=== PATIENT | male | born 1935 | race Caucasian/White ===

== ENCOUNTER 2018-06-11 07:53 | Inpatient (IN) | payer MEDICARE, OTHER ==
[~2018-06-11] VITALS: Ht 180.3 cm; Wt 65.0 kg
[2018-06-11] MEDS ORDERED: CEFEPIME 2GM/50 ML (PMX) 50 ML IVPB STA (07:55)
[2018-06-11] MEDS ORDERED: VANCOMYCIN 1 GM (PMX) 250 ML IVPB ONE (08:00)
[2018-06-11] MEDS ORDERED: IPRATROPIUM (NEB) 0.5 MG/2.5 ML AMP INH STA (08:08)
[2018-06-11] MEDS ORDERED: ALBUTEROL 0.083% (NEB) 2.5 MG/3 ML AMP INH STA (08:08)
--- NOTE | 2018-06-11 08:18 | ERD ---
ER Documentation Chief Complaint Chief Complaint SOB, cough congestion HPI 83-year-old male with a past history of CVA, chronic hypoxia, requiring O2, recent admission from outside hospital, who presents for evaluation of acute shortness of breath. He is brought in by EMS, history was limited based on the acuity of his condition, EMS reports that he is brought in because he was more tachypneic, they noted scattered rales on exam. There are no alleviating or aggravating factors. The patient has not had a fever today. He denies chest pain, he has a history of a G-tube ROS All systems reviewed and are negative except as per history of present illness. Medications Home Meds Reported Medications Tramadol HCl (Tramadol HCl) 50 Mg Tablet, 50 MG G-TUBE Q6H PRN for PAIN LEVEL 4- 7, #120 TAB 06/11/18 Tiotropium Holt* (Spiriva*) 18 Mcg Cap.w.dev, 1 CAP INHALATION DAILY, #30 CAP 06/11/18 Sotalol Hcl* (Betapace*) 80 Mg Tab, 40 MG G-TUBE BID, TAB 06/11/18 Sirolimus* (Rapamune*) 1 Mg Tablet, 1 MG G-TUBE QHS, TAB 06/11/18 Levothyroxine Sodium* (Levoxyl*) 50 Mcg Tablet, 50 MCG GTB BEFORE BREAKFAST, #30 TAB 06/11/18 Latanoprost (Latanoprost) 2.5 Ml Drops, 1 DROP BOTH EYES QHS, #1 BOTTLE 06/11/18 Guaifenesin* (Refenesen*) 400 Mg Tablet, 400 MG G-TUBE Q8H PRN for COUGH, TAB 06/11/18 Tamsulosin Hcl* (Tamsulosin Hcl*) 0.4 Mg Cap.er.24h, 0.4 MG G-TUBE DAILY, CAP 06/11/18 Polyvinyl Alcohol (Tears Again) 15 Ml Drops, 15 ML OP PRN PRN for DRY EYES, BOTTLE 06/11/18 Apixaban* (Eliquis*) 2.5 Mg Tablet, 2.5 MG PO BID, TAB 06/11/18 Amlodipine Besylate* (Amlodipine Besylate*) 10 Mg Tablet, 10 MG G-TUBE DAILY, #30 TAB 06/11/18 Acetaminophen* (Acetaminophen* Susp) 325 Mg/10.15 Ml Solution, 640 MG G-TUBE Q4H PRN for PAIN OR TEMP ABOVE 38C, ML 06/11/18 Allergies Allergies: Coded Allergies: No Known Allergy (Unverified , 06/11/18) Physical Exam Vitals Vital Signs Date Temp Pulse Resp B/P (MAP) Pulse Ox O2 O2 Flow FiO2 Time Delivery Rate 06/11/18 88 26 119/66 97 Nasal 6.0 09:33 (83) Cannula 06/11/18 120 26 97 Nasal 6.0 08:57 Cannula 06/11/18 99.6 150 30 145/71 98 08:05 (95) Physical Exam Const: Tachypneic, alert and awake, elderly-appearing Head: Atraumatic Eyes: Normal Conjunctiva ENT: Normal External Ears, Nose and Mouth. Neck: Full range of motion. No meningismus. Resp: Scattered rhonchi bilaterally Cardio: Irregularly irregular, no murmurs Abd: Soft, non tender, G-tube site noted clean dry and intact, non distended. Normal bowel sounds Skin: No petechiae or rashes Back: No midline or flank tenderness Ext: No cyanosis, or edema Neur: Awake and alert Psych: Normal Mood and Affect Result Diagram: 06/11/18 0838 06/11/18 0838 Results 24 hrs Laboratory Tests Test 06/11/18 08:38 06/11/18 08:42 White Blood Count 11.2 10^3/ul Red Blood Count 3.89 10^6/ul Hemoglobin 12.2 g/dl Hematocrit 39.8 % Mean Corpuscular Volume 102.3 fl Mean Corpuscular Hemoglobin 31.4 pg Mean Corpuscular Hemoglobin Concent 30.7 g/dl Red Cell Distribution Width 14.3 % Platelet Count 187 10^3/UL Mean Platelet Volume 13.1 fl Immature Granulocytes % 0.400 % Neutrophils % 83.9 % Lymphocytes % 4.5 % Monocytes % 10.4 % Eosinophils % 0.5 % Basophils % 0.3 % Nucleated Red Blood Cells % 0.0 /100WBC Immature Granulocytes # 0.050 10^3/ul Neutrophils # 9.4 10^3/ul Lymphocytes # 0.5 10^3/ul Monocytes # 1.2 10^3/ul Eosinophils # 0.1 10^3/ul Basophils # 0.0 10^3/ul Nucleated Red Blood Cells # 0.0 10^3/ul Prothrombin Time 12.8 Sec Prothrombin Time Ratio 1.0 INR International Normalized Ratio 0.95 Activated Partial Thromboplast Time 31.0 Sec Sodium Level 144 mmol/L Potassium Level 4.4 mmol/L Chloride Level 99 mmol/L Carbon Dioxide Level 36 mmol/L Anion Gap 9 Blood Urea Nitrogen 35 mg/dl Creatinine 0.75 mg/dl Est Glomerular Filtrat Rate mL/min mL/min Glucose Level 233 mg/dl Calcium Level 10.3 mg/dl Total Bilirubin 0.7 mg/dl Direct Bilirubin 0.00 mg/dl Indirect Bilirubin 0.7 mg/dl Aspartate Amino Transf (AST/SGOT) 40 IU/L Alanine Aminotransferase (ALT/SGPT) 39 IU/L Alkaline Phosphatase 94 IU/L Troponin I < 0.012 ng/ml B-Type Natriuretic Peptide 1240 PG/ML Total Protein 7.8 g/dl Albumin 4.1 g/dl Globulin 3.70 g/dl Albumin/Globulin Ratio 1.10 POC Venous Lactate 1.0 mmol/L Current Medications Medications Dose Sig/Sharif Start Time Status Last (Trade) Ordered Route PRN Stop Time Admin Dose Reason Admin Cefepime HCl 50 ml @ ONCE STAT 06/11/18 DC 06/11/18 100 mls/hr IVPB 07:55 08:51 06/11/18 08:24 Vancomycin 250 ml @ ONCE ONCE 06/11/18 DC 06/11/18 HCl 125 mls/hr IVPB 08:00 09:32 06/11/18 09:59 Albuterol 5 mg ONCE STAT 06/11/18 DC 06/11/18 (Proventil INH 08:08 08:57 0.083% (Neb)) 06/11/18 08:09 Ipratropium 0.5 mg ONCE STAT 06/11/18 DC 06/11/18 Holt INH 08:08 08:57 (Atrovent 06/11/18 08:09 0.02% (Neb)) Diltiazem 15 mg ONCE ONCE 06/11/18 DC 06/11/18 HCl IV 09:30 09:16 (Cardizem Iv) 06/11/18 09:31 Sodium 500 ml @ Q1H ONCE 06/11/18 06/11/18 Chloride 500 mls/hr IV 09:30 09:34 06/11/18 10:29 Diltiazem 60 mg ONCE ONCE 06/11/18 DC HCl PO 09:30 (Cardizem) 06/11/18 09:31 Procedures/MDM 83-year-old male presents for shortness of breath, found to be in atrial fib with RVR. He has documented history of prior A. fib, he is currently on apixaban, he had a low-grade temperature, and possible signs of atelectasis ag rafa pneumonia on chest x-ray. Mild suspicion of the patient most likely has a pneumonia, which may have triggered his atrial fibrillation with RVR. He has no signs of severe sepsis or septic shock, given he had a recent hospital admission and comes from a long-term facility, he will be treated with broad- spectrum antibiotics with vancomycin and cefepime. I would not give 30 cc/kg of IV fluids, given that the patient had cardiomegaly, and elevated basal natruretic peptide, and there is concern for congestive heart failure. Patient was given diltiazem, and remained hemodynamically stable Accepting Care Team: Current data and ongoing care discussed. Primary: Juan Consulting: None Outstanding Data: none Departure Diagnosis: Primary Impression: Atrial fibrillation Atrial fibrillation type: unspecified Qualified Codes: I48.91 - Unspecified atrial fibrillation Additional Impressions: Pneumonia Pneumonia type: due to unspecified organism Laterality: unspecified laterality Lung location: unspecified part of lung Qualified Codes: J18.9 - Pneumonia, unspecified organism Shortness of breath Condition: SERAFIN Mitchell MD Jun 11, 2018 08:18
[2018-06-11] MEDS: CEFEPIME 1GM/50 ML (PMX) 50 ML IVPB SCH (09:00)
[2018-06-11] MEDS ORDERED: DILTIAZEM 60 MG TAB PO ONE (09:30)
[2018-06-11] MEDS ORDERED: DILTIAZEM 25 MG INJ IV ONE (09:30)
[2018-06-11] MEDS ORDERED: SOD CHLORIDE 0.9% 500 ML IV ONE (09:30)
[2018-06-11] MEDS ORDERED: POLY15DR25 OP (09:47)
[2018-06-11] MEDS ORDERED: TAMS0.4C2 G-TUBE (09:47)
[2018-06-11] MEDS ORDERED: AMLO-147 G-TUBE (09:47)
[2018-06-11] MEDS ORDERED: LATA2.5D2 BOTH EYES (09:47)
[2018-06-11] MEDS ORDERED: LEVO50TA71 GTB (09:47)
[2018-06-11] MEDS ORDERED: SOTA80TA53 G-TUBE (09:47)
[2018-06-11] MEDS ORDERED: ACET325S G-TUBE (09:47)
[2018-06-11] MEDS ORDERED: TIOT18CA INHALATION (09:47)
[2018-06-11] MEDS ORDERED: SIRO1TAB G-TUBE (09:47)
[2018-06-11] MEDS ORDERED: TRAM50TA2 G-TUBE (09:47)
[2018-06-11] MEDS ORDERED: APIX2.5T PO (09:47)
[2018-06-11] MEDS ORDERED: GUAI400T22 G-TUBE (09:47)
--- NOTE | 2018-06-11 17:04 | QN ---
Documentation Comment seen and examined DAVEY GUTIERREZ MD Jun 11, 2018 17:04
[2018-06-11] MEDS ORDERED: ARTIFICIAL TEARS 15 ML OPH BOTH EYES PRN (17:30)
[2018-06-11] MEDS ORDERED: traMADol 50 MG TAB GTB PRN (17:30)
[2018-06-11] MEDS ORDERED: VANCOMYCIN IV PER PHARMACY XX SCH (17:30)
[2018-06-11] MEDS ORDERED: NACL 0.9% 3 ML SYG IV SCH (17:30)
[2018-06-11] MEDS ORDERED: ACETAMINOPHEN 325 MG TAB GTB PRN (17:30)
[2018-06-11] MEDS ORDERED: ONDANSETRON 4 MG TAB PO PRN (17:30)
[2018-06-11 18:05] VITALS: BP 151/72; PULSE 95; RESP 20
[2018-06-11 18:25] VITALS: PULSE 113
[2018-06-11 19:27] VITALS: BP 107/60; PULSE 92; RESP 20
[2018-06-11] MEDS ORDERED: METOPROLOL 5 MG INJ IV PRN (19:30)
[2018-06-11] MEDS ORDERED: hydrALAzine 20 MG INJ IV PRN (19:30)
[2018-06-11 19:46] VITALS: Ht 180.3 cm; Wt 65.0 kg
[2018-06-11 20:00] VITALS: PULSE 94
[2018-06-11] MEDS: ALBUTEROL/IPRATROPIUM (NEB) 3 ML AMP HHN SCH (20:07)
--- NOTE | 2018-06-11 20:21 | HP ---
DATE OF ADMISSION: 06/11/2018 REASON FOR ADMISSION: Shortness of breath. HISTORY OF PRESENTING ILLNESS: This is an 83-year-old male with a past medical history of kidney sto myron, status post nephrectomy, was on dialysis, status post DDRT 9 years ago on sirolimus, history of hypertension, AFib, hypothyroidism, BPH, COPD , history of recent CVA 4 months ago, chronic hypoxia r equiring oxygen, G-tube placement, who was transferred to ____ secondary to shortness of breath. His tory is obtained from the son, ____, as the patient is unable to obtain any history from the patient. According to him 4 months ago, the patient had a stroke. The patient's condition had been declinin g. The patient was in [place] almost 2 weeks ago where the patient was short of breath, was found to be in sepsis, was transferred and was thought to have pneumonia, was treated there with IV antibiotic s and then was transferred to [facility]. After the patient stayed in the [facility] for 2 days, the patient was sent to [facility]. The patient was seen i n the [facility]. According to the son, the patient was also started on some feeding. Ac cording to the son, the other brother had been feeding the father and he feels that probably the eliel ent could have aspirated. The patient's facility called the family today and told the patient is po rt of breath and congested. O2 sats were only 80% and was transferred to nearest hospital. On admis leatha, vital signs show temperature 99.6, initial heart rate 150, respiratory rate 30, blood pressure 145/71, saturating 98% on 6 liters. White count was 11.1, BUN of 35, creatinine 0.75, glucose was 23 3. The patient was given vancomycin, cefepime, albuterol, Atrovent, diltiazem, NS and was admitted f or further management. Chest x-ray showed postsurgical changes, left upper thorax, left basilar atel ectasis, cardiomegaly with calcified aorta. PAST MEDICAL HISTORY: 1. Chronic AFib. 2. Status post DDRT 9 years ago, on sirolimus. 3. Hypertension. 4. Hypothyroidism. 5. History of CVA 4 months ago, status post G-tube placement. 6. Bedbound. 7. BPH. 8. Hypothyroidism. ALLERGIES: NONE. PAST SURGICAL HISTORY: 1. The patient has neck surgery for spine surgery many years ago. 2. The patient also had stent placed in the left arm and fistula. 3. G-tube placement. 4. The patient had partial thyroidectomy. SOCIAL HISTORY: Unobtainable. MEDICATIONS AT RETIREMENT: 1. Atenolol. 2. Amlodipine 10. 3. Eliquis 2.5 q.12 hours. 4. Flomax 0.4 at bedtime. 5. Guaifenesin. 6. Latanoprost eyedrops. 7. Levothyroxine 50. 8. Sirolimus 1 mg via G-tube in the evening. 9. Sotalol 40 b.i.d. 10. Spiriva. 11. Tramadol. FAMILY HISTORY: History of kidney stones in the family. REVIEW OF SYSTEMS: Unobtainable. PHYSICAL EXAMINATION: VITAL SIGNS: Currently, blood pressure 126/81, afebrile, heart rate 94, respirations 26, saturating 98% on 6 liters oxygen. GENERAL: The patient is confused, altered, barely open his eyes. Has weakness on the left arm. NECK: Supple. HEART: Irregularly irregular. LUNGS: Scattered rhonchi and rales. ABDOMEN: Little distended. G-tube present. Surgical scar present. EXTREMITIES: The patient has a fistula in the left upper extremity, currently not working. Thin ext remities. LABORATORY DATA: Sodium of 144, potassium of 4.4, chloride of 99, BUN of 35 and creatinine of 0.75. Lactic acid 0.7. Albumin is 4.1. LFTs showed AST 40, ALT of 39. BNP of 1240. Troponin is less th an 0.12. White count 11.2, hemoglobin 12.2, platelet count 187. UA is turbid, 3 WBCs. IMAGING: Chest x-ray showed some postsurgical change in the ____, left basilar atelectasis, cardiome mahesh with calcified aorta. EKG initially showed AFib with RVR; however, rate is better controlled no w. ASSESSMENT AND PLAN: This is an 83-year-old male who presented with: 1. Shortness of breath, could be secondary to underlying congestive heart failure, chronic obstructi ve pulmonary disease, also rule out aspiration. 2. Chronic atrial fibrillation, was in rapid ventricular response on admission, currently better. 3. Fevers. Rule out pneumonia. 4. Hypoxia. 5. Hypertension. 6. Status post donor renal transplantation. 7. History of chronic stroke with G-tube placement. 8. Hypothyroidism. 9. Hyperlipidemia. 10. G-tube placement. 11. Chronic bedbound status. PLAN: At this period of time, the patient will be admitted to telemetry. The patient will be contin ued on nebs round the clock. The patient will be kept n.p.o. Aspiration precautions. The patient w ill be started on IV antibiotics. We will also get an echo. Gentle Lasix. Pulmonary and cardiology consultation will be called. Rest of the treatment will depend on the patient's hospitalization cou rse. Dictated By: DAVEY ROBLES/JULIOCESAR Conf#: [id number] DID#: [id number] CC: RORY JANSEN MD; KENNY STOVER MD;*EndCC*
[2018-06-11] MEDS: SIROLIMUS 1 MG TAB GTB SCH (21:00)
[2018-06-11] MEDS ORDERED: SOTALOL 80 MG TAB GTB SCH (21:00)
[2018-06-11] MEDS: APIXABAN 5 MG TABLET PO SCH (21:00)
[2018-06-11] MEDS: SOTALOL 80 MG TAB GTB SCH (21:00)
[2018-06-11] MEDS: DILTIAZEM 30 MG TAB PO SCH ×2 (22:00→23:52)
[2018-06-11] MEDS: FUROSEMIDE 20 MG INJ IV SCH (22:00)
[2018-06-11] MEDS: LATANOPROST 0.005% 2.5 ML OPH BOTH EYES SCH (22:40)
[2018-06-11] MEDS: FAMOTIDINE 20 MG INJ IV SCH (22:45)
[2018-06-12] VITALS (12 sets, daily range): BP systolic 114–135; BP diastolic 58–67; PULSE 36–112; RESP 18–20
[2018-06-12] MEDS: ACETYLCYSTEINE 20% 4 ML VIAL NEB SCH ×4 (02:33→21:35)
[2018-06-12] MEDS: ALBUTEROL/IPRATROPIUM (NEB) 3 ML AMP HHN SCH ×4 (02:33→21:35)
--- NOTE | 2018-06-12 03:09 | CONS ---
DATE OF ADMISSION: 06/11/2018 DATE OF CONSULTATION: 06/11/2018 REASON FOR CONSULTATION: Atrial fibrillation. REQUESTING PHYSICIAN: Dr. Li. HISTORY OF PRESENT ILLNESS: Mr. Richey is an 83-year-old male with a history of prior CVA, chronic hypoxia requiring home O2, dysphagia status post G-tube, atrial fibrillation on baseline sotalol and Eliquis, who presented with worsening shortness of breath and increasing tachypnea. Upon arrival, te mperature 98.6, blood pressure 145/71, pulse 150, respiratory rate 30, satting 98%. The patient's la bs, white count 11.2, hemoglobin 12.2, platelet count 187. Sodium 144, potassium 4.4, creatinine 0.7 , BUN 35. Troponin negative. BNP of 1240. INR 0.95. UA negative. The patient underwent a chest x -ray revealing left basilar atelectasis, cardiomegaly, calcified aorta. The patient's electrocardiog dony revealed a rhythm most consistent with atrial fibrillation and atrial flutter at a rate of 135, n ormal axis and intervals with nonspecific ST abnormalities diffusely. The patient subsequently was a dmitted to the floor, and since admit to floor, has been resumed on baseline sotalol and baseline Sayda sandi as well as Norvasc with overall current improvement in heart rate. PAST MEDICAL HISTORY: As above in HPI with this patient having a history of BPH, hypothyroidism, gla ucoma by medications. MEDICATIONS CURRENTLY IN HOSPITAL: 1. Norvasc 10 mg daily. 2. ____ daily. 3. Synthroid 50 mcg daily. 4. Pepcid 20 mg IV daily. 5. Eliquis 2.5 mg p.o. b.i.d. 6. Sirolimus 1 mg at bedtime. 7. Sotalol 40 mg b.i.d. 8. Lasix 20 mg IV daily. 9. Tylenol p.r.n. 10. Vancomycin p.r.n. ALLERGIES: NO KNOWN DRUG ALLERGIES. SOCIAL HISTORY: No current tobacco, ETOH or illicit drug use. FAMILY HISTORY: No history of sudden cardiac or early CAD. REVIEW OF SYSTEMS: As above in HPI. CONSTITUTIONAL: No fever or chills. PULMONARY: No current shortness of breath. CARDIOVASCULAR: Atrial fibrillation with rapid ventricular response. GASTROINTESTINAL: No vomiting. GENITOURINARY: No hematuria. MUSCULOSKELETAL: Degenerative joint disease. PSYCHIATRIC: No documented psych history. NEUROLOGIC: History of CVA. Altered mental state. PHYSICAL EXAMINATION: VITAL SIGNS: Temperature of 98.1, blood pressure most recently 151/72, pulse 95, respiratory rate 20 , satting 98%. GENERAL: The patient is alert, awake, does not clearly respond to questioning of chest pain or short ness of breath. Sleeping, somewhat difficult to arouse. NECK: JVP approximately 9 cm water. CHEST: Upper chest has rhonchorous sounds. HEART: Tachycardic, irregularly irregular, I/ systolic murmur, nondisplaced PMI. ABDOMEN: Positive bowel sounds, soft. EXTREMITIES: No edema, 1+ pulses in bilateral posterior tibial. LABORATORIES: Most recently from today, troponin negative x2. Otherwise, as above in HPI. IMAGING STUDIES: As above in HPI. No further imaging studies for my review at this time. ECG: As above in HPI. No further electrocardiograms for my review at this time. IMPRESSION: 1. Atrial fibrillation with mild rapid ventricular response. 2. Abnormal electrocardiogram with nonspecific ST abnormalities, assess for acute coronary syndrome. 3. Hypertension. 4. Shortness of breath with possible pneumonia by chest x-ray. 5. Elevated blood sugars. 6. Leukocytosis. 7. Hypothyroidism. 8. Benign prostatic hypertrophy. RECOMMENDATIONS: 1. At this time, we would maintain patient on telemetry monitoring to follow rhythm and rate control closely. 2. We would check a 2D echo for this patient's ejection fraction, wall motion and major valve abnorm alities 3. Continue the patient's Eliquis for prevention of thromboembolic complications in the setting of a trial fibrillation. 4. We will continue the patient's sotalol. We will increase it to 80 b.i.d. and follow serial EKGs to follow the QT corrected interval and we will additionally change the patient's Norvasc to diltiaze m to improve overall heart rate control and then we will continue to up titrate to improve overall sy stolic blood pressure control with possible need to initiate alternative antihypertensives. 5. Consider gentle diuresis given elevated BNP, but we will hold on this given elevated [id number]-ya-[id number] inine ratio. 6. Continue patient's antibiotics and follow up all culture data, which has been written for 20 IV d aily. 7. Continue patient's antibiotics and follow up all culture data. Thank you for allowing me to take part in the care of this patient. I will continue to follow him ve ry closely with you with recommendations to be made as the patient progresses through his inpatient h ospital clinical course. Dictated By: RORY FERGUSON/JULIOCESAR Conf#: [id number] DID#: [id number] CC: Dr. Li; KENNY STOVER MD;*EndCC*
[2018-06-12] MEDS: VANCOMYCIN 1 GM 250 ML IVPB SCH (04:37)
[2018-06-12] MEDS: DILTIAZEM 30 MG TAB PO SCH ×2 (06:12→14:00)
[2018-06-12] MEDS: LEVOTHYROXINE 50 MCG TAB GTB SCH (06:12)
--- NOTE | 2018-06-12 08:51 | RADRPT ---
CHRISTOPHER KEE :1935 Sex:M Status: RECONFIRMED ACC:[id number] Exam DATE:2018-06-12 07:59:58 Vent Rate: 47 bpm RR Interval: 0 msec CO Interval: 0 msec QRS Duration: 78 msec QT Interval: 432 msec QTC Interval: 382 msec P-R-T [place]: 0 - 27 - 70 degrees Atrial fibrillation with slow ventricular response Possible Anterior infarct , age undetermined Abnormal ECG Electronically Signed By: Calvin Cerrato
[2018-06-12] MEDS ORDERED: AMLODIPINE 10 MG TAB GTB SCH (09:00)
[2018-06-12] MEDS: FAMOTIDINE 20 MG INJ IV SCH (09:26)
[2018-06-12] MEDS: FUROSEMIDE 20 MG INJ IV SCH (09:26)
[2018-06-12] MEDS: TAMSULOSIN (SR) 0.4 MG CAP PO SCH (09:26)
[2018-06-12] MEDS: APIXABAN 5 MG TABLET PO SCH ×2 (09:27→20:19)
[2018-06-12] MEDS: SOTALOL 80 MG TAB GTB SCH (09:27)
[2018-06-12] MEDS: CEFEPIME 1GM/50 ML (PMX) 50 ML IVPB SCH (09:27)
--- NOTE | 2018-06-12 14:50 | CONS ---
Assessment/Plan Assessment/Plan Assessment/Plan (Daily) Atrial fibrillation with Pauses Abnormal electrocardiogram with nonspecific ST abnormalities Hypertension. Diabetes Hypothyroidism. Benign prostatic hypertrophy. Multiple episodes of sinus pauses Stopped Sotalol and Cardizem Continue Eliquis Continue Antibiotics Keep Mag > 2 and Potassium > 4 Consultation Date/Type/Reason Admit Date/Time Jun 11, 2018 at 09:53 Initial Consult Date Type of Consult Cardiology Date/Time of Note DATE: 06/12/18 TIME: 14:46 Exam/Review of Systems Vital Signs Vitals Vital Signs Date Temp Pulse Resp B/P (MAP) Pulse Ox O2 O2 Flow FiO2 Time Delivery Rate 06/12/18 90 22 100 Nasal 3.0 14:33 Cannula 06/12/18 97.5 119/58 11:27 (78) Intake and Output 06/11/18 06/11/18 06/12/18 1515:00 23:00 07:00 IntakeIntake Total 430 ml OutputOutput Total 800 ml BalanceBalance -370 ml Exam Constitutional: alert Head: normocephalic, atraumatic Neck: supple, non-tender Respiratory: clear to auscultation Cardiovascular: irregular rhythm, other (no m/r/g) Gastrointestinal: soft Extremities: normal pulses Labs Result Diagram: 06/12/1851806/12/18 0519 Results 24hrs Laboratory Tests Test 06/11/18 17:33 06/11/18 23:04 06/12/18 05:19 Creatine Kinase 23 < 20 L Creatine Kinase Index 1.0 Creatinine Kinase MB (Mass) < 0.22 < 0.22 Troponin I < 0.012 < 0.012 Thyroid Stimulating Hormone (TSH) 2.680 White Blood Count 10.2 Red Blood Count 3.53 L Hemoglobin 11.2 L Hematocrit 37.7 L Mean Corpuscular Volume 106.8 H Mean Corpuscular Hemoglobin 31.7 Mean Corpuscular Hemoglobin Concent 29.7 L Red Cell Distribution Width 14.0 Platelet Count 172 Mean Platelet Volume 13.2 H Immature Granulocytes % 0.500 H Neutrophils % 80.2 H Lymphocytes % 5.9 L Monocytes % 12.2 H Eosinophils % 1.0 Basophils % 0.2 Nucleated Red Blood Cells % 0.0 Immature Granulocytes # 0.050 H Neutrophils # 8.2 H Lymphocytes # 0.6 L Monocytes # 1.2 H Eosinophils # 0.1 Basophils # 0.0 Nucleated Red Blood Cells # 0.0 Sodium Level 146 H Potassium Level 4.5 Chloride Level 104 Carbon Dioxide Level 35 H Anion Gap 7 Blood Urea Nitrogen 34 H Creatinine 0.82 Est Glomerular Filtrat Rate mL/min Glucose Level 116 # Hemoglobin A1c 5.2 Calcium Level 9.5 Phosphorus Level 4.5 Magnesium Level 2.3 Total Bilirubin 1.3 Direct Bilirubin 0.00 Indirect Bilirubin 1.3 H Aspartate Amino Transf (AST/SGOT) 38 Alanine Aminotransferase (ALT/SGPT) 39 Alkaline Phosphatase 90 Total Protein 7.5 Albumin 3.8 Globulin 3.70 H Albumin/Globulin Ratio 1.02 Medications Medications Current Medications IV Flush (NS 3 ml) 3 ml PER PROTOCOL IV ; Start 06/11/18 at 17:30 Ondansetron HCl (Zofran Tab) 4 mg Q6H PRN PO NAUSEA/VOMITING; Start 06/11/18 at 17:30 Acetaminophen (Tylenol Tab) 650 mg Q6H PRN GTB .PAIN 1-3 OR TEMP; Start 06/11/18 at 17:30 Famotidine (Pepcid Iv) 20 mg DAILY IV Last administered on 06/12/18 09:26; Admin Dose 20 MG; Start 06/11/18 at 21:00 Vancomycin HCl (Vanco Iv Per Pharmacy) VANCOMYCIN PER PHARMACY PER PROTOCOL XX ; Start 06/11/18 at 17:30 Cefepime HCl 50 ml @ 100 mls/hr Q24H IVPB Last administered on 06/12/18 09:27; Admin Dose 100 MLS/HR; Start 06/11/18 at 09:00 Albuterol/ Ipratropium (Duoneb) 3 ml Q6H RESP THERAPY HHN Last administered on 06/12/18 14:32; Admin Dose 3 ML; Start 06/11/18 at 20:00 Furosemide (Lasix) 20 mg DAILY IV Last administered on 06/12/18 09:26; Admin Dose 20 MG; Start 06/11/18 at 19:00 Apixaban (Eliquis) 2.5 mg BID PO Last administered on 06/12/18 09:27; Admin Dose 2.5 MG; Start 06/11/18 at 21:00 Latanoprost (Xalatan) 1 drop QHS BOTH EYES Last administered on 4/12/19at 22 :40; Admin Dose 1 DROP; Start 06/11/18 at 21:00 Levothyroxine Sodium (Synthroid) 50 mcg BEFORE BREAKFAST GTB Last administered on 06/12/18at 06:12; Admin Dose 50 MCG; Start 06/12/18 at 07:00 Eye Lubricant (Artificial Tears Oph) 1 drop PRN PRN BOTH EYES DRY EYES; Start 06/11/18 at 17:30 Sirolimus (Rapamune) 1 mg QHS GTB Last administered on 06/11/18at 21:00; Admin Dose 1 MG; Start 06/11/18 at 21:00 Tamsulosin HCl (Flomax) 0.4 mg DAILY PO Last administered on 06/12/18 09:26; Admin Dose 0.4 MG; Start 06/12/18 at 09:00 Tramadol HCl (Ultram) 50 mg Q6H PRN GTB PAIN LEVEL 4-7; Start 06/11/18 at 17:30 Sotalol HCl (Betapace) 80 mg BID GTB Last administered on 06/12/18at 09:27; Admin Dose 80 MG; Start 06/11/18 at 21:00 Hydralazine HCl (Apresoline) 10 mg Q4H PRN IV SBP>170; Start 06/11/18 at 19:30 Metoprolol Tartrate (Lopressor) 5 mg Q4H PRN IV HR>110 HOld SBP<100; Start 06/11/18 at 19:30 Vancomycin HCl 250 ml @ 125 mls/hr Q24H IVPB Last administered on 06/12/18 04:37; Admin Dose 125 MLS/HR; Start 06/12/18 at 04:00 Acetylcysteine (Mucomyst) 2 ml Q6H RESP THERAPY NEB Last administered on 06/12/18at 14:33; Admin Dose 2 ML; Start 06/12/18 at 02:00 MO FRAGOSO M.D. Jun 12, 2018 14:50
--- NOTE | 2018-06-12 19:14 | PN ---
Date/Time of Note Date/Time of Note DATE: 06/12/18 TIME: 19:10 Assessment/Plan VTE Prophylaxis Risk score (from [facility] [place])>0 risk: 9 SCD applied (from [facility] [place]): Yes Pharmacological prophylaxis: apixaban Lines/Catheters IV [facility] Type (from [facility] Saline Lock Urinary Cath still in place: Yes Reason Cath still needed: urinary retention Assessment/Plan Hospital Course 1. Shortness of breath, could be secondary to underlying congestive heart failure, chronic obstructive pulmonary disease, also rule out aspiration. 2. Chronic atrial fibrillation, was in rapid ventricular response on admission, currently controlled. 3. Sepsis, Bl. Cul. are positive. Fevers. UA negative. Chest Xray neg. for pneumonia, will repeat 4. Hypoxic respiratory failure. 5. Hypertension. 6. Status post donor renal transplantation. 7. History of stroke with G-tube placement. 8. Hypothyroidism. 9. Hyperlipidemia. 10. G-tube placement. 11. Chronic bedbound status. Assessment/Plan - telemetry. -dc foly AM - nebs round the clock. - n.p.o. start GI tube feed -Aspiration precautions. -c/w Cefipime and Vancomycin - echo pending. -c.w Gentle Lasix. Pulmonary and cardiology consultation will be called. -GI prophylaxis Famotidine PO BID -DVT prophylaxis Eliquis BID -video swallow per OT later Result Diagram: 06/12/1851806/12/18518 Results 24hrs Laboratory Tests Test 06/11/18 23:04 06/12/18 05:19 Creatine Kinase < 20 L Creatine Kinase Index Creatinine Kinase MB (Mass) < 0.22 Troponin I < 0.012 White Blood Count 10.2 Red Blood Count 3.53 L Hemoglobin 11.2 L Hematocrit 37.7 L Mean Corpuscular Volume 106.8 H Mean Corpuscular Hemoglobin 31.7 Mean Corpuscular Hemoglobin Concent 29.7 L Red Cell Distribution Width 14.0 Platelet Count 172 Mean Platelet Volume 13.2 H Immature Granulocytes % 0.500 H Neutrophils % 80.2 H Lymphocytes % 5.9 L Monocytes % 12.2 H Eosinophils % 1.0 Basophils % 0.2 Nucleated Red Blood Cells % 0.0 Immature Granulocytes # 0.050 H Neutrophils # 8.2 H Lymphocytes # 0.6 L Monocytes # 1.2 H Eosinophils # 0.1 Basophils # 0.0 Nucleated Red Blood Cells # 0.0 Sodium Level 146 H Potassium Level 4.5 Chloride Level 104 Carbon Dioxide Level 35 H Anion Gap 7 Blood Urea Nitrogen 34 H Creatinine 0.82 Est Glomerular Filtrat Rate mL/min Glucose Level 116 # Hemoglobin A1c 5.2 Calcium Level 9.5 Phosphorus Level 4.5 Magnesium Level 2.3 Total Bilirubin 1.3 Direct Bilirubin 0.00 Indirect Bilirubin 1.3 H Aspartate Amino Transf (AST/SGOT) 38 Alanine Aminotransferase (ALT/SGPT) 39 Alkaline Phosphatase 90 Total Protein 7.5 Albumin 3.8 Globulin 3.70 H Albumin/Globulin Ratio 1.02 Subjective 24 Hr Interval Summary Free Text/Dictation unable to talk, cough Exam/Review of Systems Exam Vitals Vital Signs Date Temp Pulse Resp B/P (MAP) Pulse Ox O2 O2 Flow FiO2 Time Delivery Rate 06/12/18 79 16:00 06/12/18 98.0 20 115/64 94 Nasal 15:46 (81) Cannula 06/12/18 3.0 14:33 Intake and Output 06/11/18 06/11/18 06/12/18 1515:00 23:00 07:00 IntakeIntake Total 430 ml OutputOutput Total 800 ml BalanceBalance -370 ml Constitutional: alert, oriented (name, ) ENMT: nl external ears & nose Neck: supple Respiratory: crackles/rales, diminished breath sounds Cardiovascular: regular rate and rhythm Gastrointestinal: soft, other (G tube) Results Results 24hrs Laboratory Tests Test 06/11/18 23:04 06/12/18 05:19 Creatine Kinase < 20 L Creatine Kinase Index Creatinine Kinase MB (Mass) < 0.22 Troponin I < 0.012 White Blood Count 10.2 Red Blood Count 3.53 L Hemoglobin 11.2 L Hematocrit 37.7 L Mean Corpuscular Volume 106.8 H Mean Corpuscular Hemoglobin 31.7 Mean Corpuscular Hemoglobin Concent 29.7 L Red Cell Distribution Width 14.0 Platelet Count 172 Mean Platelet Volume 13.2 H Immature Granulocytes % 0.500 H Neutrophils % 80.2 H Lymphocytes % 5.9 L Monocytes % 12.2 H Eosinophils % 1.0 Basophils % 0.2 Nucleated Red Blood Cells % 0.0 Immature Granulocytes # 0.050 H Neutrophils # 8.2 H Lymphocytes # 0.6 L Monocytes # 1.2 H Eosinophils # 0.1 Basophils # 0.0 Nucleated Red Blood Cells # 0.0 Sodium Level 146 H Potassium Level 4.5 Chloride Level 104 Carbon Dioxide Level 35 H Anion Gap 7 Blood Urea Nitrogen 34 H Creatinine 0.82 Est Glomerular Filtrat Rate mL/min Glucose Level 116 # Hemoglobin A1c 5.2 Calcium Level 9.5 Phosphorus Level 4.5 Magnesium Level 2.3 Total Bilirubin 1.3 Direct Bilirubin 0.00 Indirect Bilirubin 1.3 H Aspartate Amino Transf (AST/SGOT) 38 Alanine Aminotransferase (ALT/SGPT) 39 Alkaline Phosphatase 90 Total Protein 7.5 Albumin 3.8 Globulin 3.70 H Albumin/Globulin Ratio 1.02 Medications Medication Current Medications IV Flush (NS 3 ml) 3 ml PER PROTOCOL IV ; Start 06/11/18 at 17:30 Ondansetron HCl (Zofran Tab) 4 mg Q6H PRN PO NAUSEA/VOMITING; Start 06/11/18 at 17:30 Acetaminophen (Tylenol Tab) 650 mg Q6H PRN GTB .PAIN 1-3 OR TEMP; Start 06/11/18 at 17:30 Famotidine (Pepcid Iv) 20 mg DAILY IV Last administered on 06/12/18 09:26; Admin Dose 20 MG; Start 06/11/18 at 21:00 Vancomycin HCl (Vanco Iv Per Pharmacy) VANCOMYCIN PER PHARMACY PER PROTOCOL XX ; Start 06/11/18 at 17:30 Cefepime HCl 50 ml @ 100 mls/hr Q24H IVPB Last administered on 06/12/18 09 :27; Admin Dose 100 MLS/HR; Start 06/11/18 at 09:00 Albuterol/ Ipratropium (Duoneb) 3 ml Q6H RESP THERAPY HHN Last administered on 06/12/18 14:32; Admin Dose 3 ML; Start 06/11/18 at 20:00 Furosemide (Lasix) 20 mg DAILY IV Last administered on 06/12/18 09:26; Admin Dose 20 MG; Start 06/11/18 at 19:00 Apixaban (Eliquis) 2.5 mg BID PO Last administered on 06/12/18 09:27; Admin Dose 2.5 MG; Start 06/11/18 at 21:00 Latanoprost (Xalatan) 1 drop QHS BOTH EYES Last administered on 06/11/18 22:4 0; Admin Dose 1 DROP; Start 06/11/18 at 21:00 Levothyroxine Sodium (Synthroid) 50 mcg BEFORE BREAKFAST GTB Last administered on 06/12/18 06:12; Admin Dose 50 MCG; Start 06/12/18 at 07:00 Eye Lubricant (Artificial Tears Oph) 1 drop PRN PRN BOTH EYES DRY EYES; Start 06/11/18 at 17:30 Sirolimus (Rapamune) 1 mg QHS GTB Last administered on 06/11/18 21:00; Admin Dose 1 MG; Start 06/11/18 at 21:00 Tamsulosin HCl (Flomax) 0.4 mg DAILY PO Last administered on 06/12/18 09:26; Admin Dose 0.4 MG; Start 06/12/18 at 09:00 Tramadol HCl (Ultram) 50 mg Q6H PRN GTB PAIN LEVEL 4-7; Start 06/11/18 at 17:30 Hydralazine HCl (Apresoline) 10 mg Q4H PRN IV SBP>170; Start 06/11/18 at 19:30 Metoprolol Tartrate (Lopressor) 5 mg Q4H PRN IV HR>110 HOld SBP<100; Start 06/11/18 at 19:30 Vancomycin HCl 250 ml @ 125 mls/hr Q24H IVPB Last administered on 06/12/18 04:37; Admin Dose 125 MLS/HR; Start 06/12/18 at 04:00 Acetylcysteine (Mucomyst) 2 ml Q6H RESP THERAPY NEB Last administered on 06/12/18at 14:33; Admin Dose 2 ML; Start 06/12/18 at 02:00 JOSIAH BRIONES Jun 12, 2018 19:14
[2018-06-12] MEDS: LATANOPROST 0.005% 2.5 ML OPH BOTH EYES SCH (20:19)
[2018-06-12] MEDS: SIROLIMUS 1 MG TAB GTB SCH (20:19)
[2018-06-13] VITALS (12 sets, daily range): BP systolic 109–146; BP diastolic 59–81; PULSE 88–111; RESP 16–18
[2018-06-13] MEDS: ACETYLCYSTEINE 20% 4 ML VIAL NEB SCH ×4 (03:45→19:28)
[2018-06-13] MEDS: ALBUTEROL/IPRATROPIUM (NEB) 3 ML AMP HHN SCH ×4 (03:45→19:27)
[2018-06-13] MEDS: VANCOMYCIN 1 GM 250 ML IVPB SCH (04:56)
[2018-06-13] MEDS: LEVOTHYROXINE 50 MCG TAB GTB SCH (06:54)
[2018-06-13] MEDS: APIXABAN 5 MG TABLET PO SCH ×2 (08:30→20:47)
[2018-06-13] MEDS: TAMSULOSIN (SR) 0.4 MG CAP PO SCH (08:30)
[2018-06-13] MEDS: FUROSEMIDE 20 MG INJ IV SCH (08:31)
[2018-06-13] MEDS: CEFEPIME 1GM/50 ML (PMX) 50 ML IVPB SCH (08:31)
[2018-06-13] MEDS: FAMOTIDINE 20 MG INJ IV SCH (08:31)
--- NOTE | 2018-06-13 13:08 | PN ---
Date/Time of Note Date/Time of Note DATE: 06/13/18 TIME: 13:07 Assessment/Plan VTE Prophylaxis Risk score (from [facility] [place])>0 risk: 11 SCD applied (from [facility] [place]): Yes Pharmacological prophylaxis: apixaban Lines/Catheters IV Catheter Type (from [facility]): Saline Lock Urinary Cath still in place: Yes Reason Cath still needed: urinary retention Assessment/Plan Hospital Course 1. Shortness of breath, could be secondary to underlying congestive heart failure, chronic obstructive pulmonary disease, also rule out aspiration. 2. Chronic atrial fibrillation, was in rapid ventricular response on admission, currently controlled. 3. Sepsis, Bl. Cul. are positive. Fevers. UA negative. Chest Xray neg. for pneumonia, will repeat 4. Hypoxic respiratory failure. 5. Hypertension. 6. Status post donor renal transplantation. 7. History of stroke with G-tube placement. 8. Hypothyroidism. 9. Hyperlipidemia. 10. G-tube placement. 11. Chronic bedbound status. Assessment/Plan - telemetry. - nebs around the clock. - n.p.o. - c/w GI tube feed -Aspiration precautions. -c/w Cefepime and Vancomycin - echo pending. -c.w Gentle Lasix. -f/up Pulmonary and cardiology consultation -GI prophylaxis Famotidine GT BID -DVT prophylaxis Eliquis BID -video swallow per OT later Result Diagram: 06/13/18 0521 06/13/18 0521 Results 24hrs Laboratory Tests Test 06/13/18 05:21 White Blood Count 8.8 Red Blood Count 3.71 L Hemoglobin 11.5 L Hematocrit 37.9 L Mean Corpuscular Volume 102.2 H Mean Corpuscular Hemoglobin 31.0 Mean Corpuscular Hemoglobin Concent 30.3 L Red Cell Distribution Width 13.7 Platelet Count 172 Mean Platelet Volume 13.6 H Immature Granulocytes % 0.500 H Neutrophils % 77.9 H Lymphocytes % 6.5 L Monocytes % 13.8 H Eosinophils % 1.0 Basophils % 0.3 Nucleated Red Blood Cells % 0.0 Immature Granulocytes # 0.040 H Neutrophils # 6.8 Lymphocytes # 0.6 L Monocytes # 1.2 H Eosinophils # 0.1 Basophils # 0.0 Nucleated Red Blood Cells # 0.0 Sodium Level 144 Potassium Level 3.7 Chloride Level 103 Carbon Dioxide Level 34 H Anion Gap 7 Blood Urea Nitrogen 37 H Creatinine 0.83 Est Glomerular Filtrat Rate mL/min Glucose Level 184 Calcium Level 9.3 Subjective 24 Hr Interval Summary Constitutional: no complaints Exam/Review of Systems Exam Vitals Vital Signs Date Temp Pulse Resp B/P (MAP) Pulse Ox O2 O2 Flow FiO2 Time Delivery Rate 06/13/18 98.2 96 109/73 100 2.0 11:19 (85) 06/13/18 20 Nasal 09:19 Cannula 06/13/18 30 03:45 Intake and Output 06/12/18 06/12/18 06/13/18 1515:00 23:00 07:00 IntakeIntake Total 0 ml 450 ml OutputOutput Total 1000 ml BalanceBalance -1000 ml 450 ml Exam left arm av fistula Constitutional: alert, oriented (name) Eyes: nl conjunctiva Neck: supple Respiratory: diminished breath sounds Gastrointestinal: soft, other (GT) Musculoskeletal: muscle weakness Results Results 24hrs Laboratory Tests Test 06/13/18 05:21 White Blood Count 8.8 Red Blood Count 3.71 L Hemoglobin 11.5 L Hematocrit 37.9 L Mean Corpuscular Volume 102.2 H Mean Corpuscular Hemoglobin 31.0 Mean Corpuscular Hemoglobin Concent 30.3 L Red Cell Distribution Width 13.7 Platelet Count 172 Mean Platelet Volume 13.6 H Immature Granulocytes % 0.500 H Neutrophils % 77.9 H Lymphocytes % 6.5 L Monocytes % 13.8 H Eosinophils % 1.0 Basophils % 0.3 Nucleated Red Blood Cells % 0.0 Immature Granulocytes # 0.040 H Neutrophils # 6.8 Lymphocytes # 0.6 L Monocytes # 1.2 H Eosinophils # 0.1 Basophils # 0.0 Nucleated Red Blood Cells # 0.0 Sodium Level 144 Potassium Level 3.7 Chloride Level 103 Carbon Dioxide Level 34 H Anion Gap 7 Blood Urea Nitrogen 37 H Creatinine 0.83 Est Glomerular Filtrat Rate mL/min Glucose Level 184 Calcium Level 9.3 Medications Medication Current Medications IV Flush (NS 3 ml) 3 ml PER PROTOCOL IV ; Start 06/11/18 at 17:30 Ondansetron HCl (Zofran Tab) 4 mg Q6H PRN PO NAUSEA/VOMITING; Start 06/11/18 at 17:30 Acetaminophen (Tylenol Tab) 650 mg Q6H PRN GTB .PAIN 1-3 OR TEMP; Start 06/11/18 at 17:30 Famotidine (Pepcid Iv) 20 mg DAILY IV Last administered on 06/13/18 08:31; Admin Dose 20 MG; Start 06/11/18 at 21:00 Vancomycin HCl (Vanco Iv Per Pharmacy) VANCOMYCIN PER PHARMACY PER PROTOCOL XX ; Start 06/11/18 at 17:30 Cefepime HCl 50 ml @ 100 mls/hr Q24H IVPB Last administered on 06/13/18 08:31; Admin Dose 100 MLS/HR; Start 06/11/18 at 09:00 Albuterol/ Ipratropium (Duoneb) 3 ml Q6H RESP THERAPY HHN Last administered on 06/13/18 09:10; Admin Dose 3 ML; Start 06/11/18 at 20:00 Furosemide (Lasix) 20 mg DAILY IV Last administered on 06/13/18 08:31; Admin Dose 20 MG; Start 06/11/18 at 19:00 Apixaban (Eliquis) 2.5 mg BID PO Last administered on 06/13/18 08:30; Admin Dose 2.5 MG; Start 06/11/18 at 21:00 Latanoprost (Xalatan) 1 drop QHS BOTH EYES Last administered on 06/12/18 20:19; Admin Dose 1 DROP; Start 06/11/18 at 21:00 Levothyroxine Sodium (Synthroid) 50 mcg BEFORE BREAKFAST GTB Last administered on 06/13/18 06:54; Admin Dose 50 MCG; Start 06/12/18 at 07:00 Eye Lubricant (Artificial Tears Oph) 1 drop PRN PRN BOTH EYES DRY EYES; Start 06/11/18 at 17:30 Sirolimus (Rapamune) 1 mg QHS GTB Last administered on 06/12/18 20:19; Admin Dose 1 MG; Start 06/11/18 at 21:00 Tamsulosin HCl (Flomax) 0.4 mg DAILY PO Last administered on 06/13/18 08:30; Admin Dose 0.4 MG; Start 06/12/18 at 09:00 Tramadol HCl (Ultram) 50 mg Q6H PRN GTB PAIN LEVEL 4-7; Start 06/11/18 at 17:30 Hydralazine HCl (Apresoline) 10 mg Q4H PRN IV SBP>170; Start 06/11/18 at 19:30 Metoprolol Tartrate (Lopressor) 5 mg Q4H PRN IV HR>110 HOld SBP<100; Start 06/11/18 at 19:30 Vancomycin HCl 250 ml @ 125 mls/hr Q24H IVPB Last administered on 06/13/18at 04:56; Admin Dose 125 MLS/HR; Start 06/12/18 at 04:00 Acetylcysteine (Mucomyst) 2 ml Q6H RESP THERAPY NEB Last administered on 06/13at 09:10; Admin Dose 2 ML; Start 06/12/18 at 02:00 Miscellaneous Information (*Rx Drug Level Order Reminder*) VANCO TROUGH ON @ 300 0300 ONCE XX ; Start 06/14/18 at 03:00; Stop 06/14/18 at 03:01 JOSIAH BRIONES Jun 13, 2018 13:08
--- NOTE | 2018-06-13 15:49 | RADRPT ---
Echocardiogram Report Patient Name: CHRISTOPHER KEEPatient ID: [id number] : 1935 (83y 5m)Study Date: 06/12/2018 1:39:30 PM Gender: MAccession #: [id number] Tech: MAC Location: Ref.Physician: DAVEY GUTIERREZ Height(Cm): 180 BSA: 1.8Weight(Kg): 64.9 Quality: Technically Difficult StudyAccount #: Procedures: Echocardiographic Report: Transthoracic echocardiogram examination. Indications: Atrial Fibrillation, Congestive Heart Failure, and Shortness of breath. h. Measurements: 2D/M Mode Doppler Measurement Value Normal Range Measurement Value Normal Range LVIDd 2D 4.0 [ 4.2 - 5.8 ] cm TR Peak Rodrigo 2.6 [ 100.0 - 280.0 ] cm/sec LVIDs 2D 2.6 [ 2.5 - 4.0 ] cm TR Peak PG 26.0 mmHg IVSd 2D 1.1 [ 0.6 - 1.0 ] cm PV Peak Rodrigo 0.6 [ 40.0 - 80.0 ] cm/sec AoR Diam 2D 3.1 [ 2.6 - 3.4 ] cm PV Peak PG 2.0 mmHg LA Dimen 2D 4.1 [ 3.0 - 4.0 ] cm RVSP 29.0 [ 10.0 - 36.0 ] mmHg RA Pressure 3.0 mmHg Findings: Left Ventricle: Normal left ventricular cavity size. Normal left ventricular systolic function. Normal left ventricular wall thickness. The left ventricular ejection fraction is visually estimated at 55 %. Right Ventricle: Normal right ventricular size. Left Atrium: There is mild enlargement of left atrium. Right Atrium: The right atrium is not well visualized. Atrial Septum: The atrial septum is not well visualized. Mitral Valve: Normal appearance of the mitral valve leaflets. Mild mitral regurgitation. Aortic Valve: No hemodynamically significant aortic stenosis by Doppler. Aortic cusps appear mildly calcified. Trileaflet aortic valve. No aortic regurgitation. Tricuspid Valve: Normal appearance of the tricuspid valve. The estimated Peak RVSP is 29 mmHg. There is mild tricuspid regurgitation. Pulmonic Valve: The pulmonic valve is not well visualized. Pericardium: Normal pericardium with no significant pericardial effusion. Left pleural effusion seen. Aorta: Normal aortic root. IVC: The inferior vena cava is not well visualized. Pulmonary Artery: Pulmonary artery is not well visualized. Conclusions: Normal left ventricular cavity size. Normal left ventricular systolic function. Normal left ventricular wall thickness. The left ventricular ejection fraction is visually estimated at 55 %. Normal right ventricular size and function. Mild mitral regurgitation. No hemodynamically significant aortic stenosis by Doppler. Aortic cusps appear mildly calcified. Trileaflet aortic valve. No aortic regurgitation. The estimated Peak RVSP is 29 mmHg. There is mild tricuspid regurgitation. Normal pericardium with no significant pericardial effusion. Left pleural effusion seen. Electronically Signed By: Dusty Ba 2018-06-13 15:49:03 PDT
[2018-06-13] MEDS: LATANOPROST 0.005% 2.5 ML OPH BOTH EYES SCH (20:48)
[2018-06-13] MEDS: SIROLIMUS 1 MG TAB GTB SCH (20:48)
[2018-06-14] VITALS (13 sets, daily range): BP systolic 114–149; BP diastolic 64–82; PULSE 76–149; RESP 16–20
[2018-06-14] MEDS: ACETYLCYSTEINE 20% 4 ML VIAL NEB SCH ×4 (01:54→22:18)
[2018-06-14] MEDS: ALBUTEROL/IPRATROPIUM (NEB) 3 ML AMP HHN SCH ×4 (01:55→13:53)
[2018-06-14] MEDS: VANCOMYCIN 1 GM 250 ML IVPB SCH (04:09)
[2018-06-14] MEDS: LEVOTHYROXINE 50 MCG TAB GTB SCH (05:23)
[2018-06-14] MEDS: CEFEPIME 1GM/50 ML (PMX) 50 ML IVPB SCH (08:27)
[2018-06-14] MEDS: FUROSEMIDE 20 MG INJ IV SCH (08:31)
[2018-06-14] MEDS: FAMOTIDINE 20 MG INJ IV SCH (08:32)
[2018-06-14] MEDS: TAMSULOSIN (SR) 0.4 MG CAP PO SCH (08:33)
[2018-06-14] MEDS: APIXABAN 5 MG TABLET PO SCH ×2 (08:33→20:34)
--- NOTE | 2018-06-14 12:58 | CONS ---
Assessment/Plan Assessment/Plan Hospital Course (Demo Recall) IMPRESSION: 1. Atrial fibrillation with mild rapid ventricular response.-neg trop x 3. NL EF by echo. Had [employer] long pause. ? true. in chart not monitor. 2. Abnormal electrocardiogram with nonspecific ST abnormalities, assess for acute coronary syndrome. 3. Hypertension. 4. Shortness of breath with possible pneumonia by chest x-ray. 5. Elevated blood sugars. 6. Leukocytosis. 7. Hypothyroidism. 8. Benign prostatic hypertrophy. Recc: -Tele -serial ecg's -Continue lasix -Continue eliquis -resume diltiazem and follow for recurrent pause. Will hold on sotalol Consultation Date/Type/Reason Admit Date/Time Jun 11, 2018 at 09:53 Initial Consult Date 06/11/18 Type of Consult Cardiology Reason for Consultation AF Requesting Provider: DAVEY GUTIERREZ MD Date/Time of Note DATE: 06/14/18 TIME: 12:46 Exam/Review of Systems Vital Signs Vitals Vital Signs Date Temp Pulse Resp B/P (MAP) Pulse Ox O2 O2 Flow FiO2 Time Delivery Rate 06/14/18 97.4 76 16 136/82 91 11:13 (100) 06/14/18 Nasal 3.0 08:00 Cannula 06/13/18 30 03:45 Intake and Output 06/13/18 06/13/18 06/14/18 1515:00 23:00 07:00 IntakeIntake Total 460 ml BalanceBalance 460 ml Exam Exam Review of Systems: CONSTITUTIONAL: No fevers, chills. PULMONARY: No sob CARDIOVASCULAR: No chest pain/palpitations GASTROINTESTINAL: No nausea/vomiting. GENITOURINARY: No hematuria/dysuria. MUSCULOSKELETAL: No myagias/arthalgias. PSYCHIATRIC: The patient denies depression. NEUROLOGIC: No weakness Constitutional: alert Psych: no complaints Head: normocephalic ENMT: mucosa pink and moist Neck: supple, jvd (9 cm water) Respiratory: diminished breath sounds (at bases/B) Cardiovascular: irregular rhythm Gastrointestinal: soft, non-tender Musculoskeletal: muscle tone (normal) Extremities: edema (none) Neurological: other (No focal deficits) Labs Result Diagram: 06/14/18 0427 06/14/18 0427 Results 24hrs Laboratory Tests Test 06/14/18 02:43 06/14/18 04:27 Vancomycin Level Trough 10.9 White Blood Count 5.7 # Red Blood Count 3.43 L Hemoglobin 10.5 L Hematocrit 35.4 L Mean Corpuscular Volume 103.2 H Mean Corpuscular Hemoglobin 30.6 Mean Corpuscular Hemoglobin Concent 29.7 L Red Cell Distribution Width 13.6 Platelet Count 162 Mean Platelet Volume 13.7 H Immature Granulocytes % 0.700 H Neutrophils % 69.9 Lymphocytes % 10.8 L Monocytes % 15.3 H Eosinophils % 3.0 Basophils % 0.3 Nucleated Red Blood Cells % 0.0 Immature Granulocytes # 0.040 H Neutrophils # 4.0 Lymphocytes # 0.6 L Monocytes # 0.9 Eosinophils # 0.2 Basophils # 0.0 Nucleated Red Blood Cells # 0.0 Sodium Level 146 H Potassium Level 3.5 Chloride Level 105 Carbon Dioxide Level 33 H Anion Gap 8 Blood Urea Nitrogen 25 #H Creatinine 0.66 Est Glomerular Filtrat Rate mL/min Glucose Level 133 # Calcium Level 8.2 L Medications Medications Current Medications IV Flush (NS 3 ml) 3 ml PER PROTOCOL IV ; Start 06/11/18 at 17:30 Ondansetron HCl (Zofran Tab) 4 mg Q6H PRN PO NAUSEA/VOMITING; Start 06/11/18 at 17:30 Acetaminophen (Tylenol Tab) 650 mg Q6H PRN GTB .PAIN 1-3 OR TEMP; Start 06/11/18 at 17:30 Famotidine (Pepcid Iv) 20 mg DAILY IV Last administered on 06/14/18at 08:32; Admin Dose 20 MG; Start 06/11/18 at 21:00 Vancomycin HCl (Vanco Iv Per Pharmacy) VANCOMYCIN PER PHARMACY PER PROTOCOL XX ; Start 06/11/18 at 17:30 Cefepime HCl 50 ml @ 100 mls/hr Q24H IVPB Last administered on 06/14/18at 08:27; Admin Dose 100 MLS/HR; Start 06/11/18 at 09:00 Albuterol/ Ipratropium (Duoneb) 3 ml Q6H RESP THERAPY HHN Last administered on 06/14/18at 09:56; Admin Dose 3 ML; Start 06/11/18 at 20:00 Furosemide (Lasix) 20 mg DAILY IV Last administered on 06/14/18at 08:31; Admin Dose 20 MG; Start 06/11/18 at 19:00 Apixaban (Eliquis) 2.5 mg BID PO Last administered on 06/14/18 08:33; Admin Dose 2.5 MG; Start 06/11/18 at 21:00 Latanoprost (Xalatan) 1 drop QHS BOTH EYES Last administered on 06/13/18 20:48; Admin Dose 1 DROP; Start 06/11/18 at 21:00 Levothyroxine Sodium (Synthroid) 50 mcg BEFORE BREAKFAST GTB Last administered on 06/14/18 05:23; Admin Dose 50 MCG; Start 06/12/18 at 07:00 Eye Lubricant (Artificial Tears Oph) 1 drop PRN PRN BOTH EYES DRY EYES; Start 06/11/18 at 17:30 Sirolimus (Rapamune) 1 mg QHS GTB Last administered on 06/13/18 20:48; Admin Dose 1 MG; Start 06/11/18 at 21:00 Tamsulosin HCl (Flomax) 0.4 mg DAILY PO Last administered on 06/14/18 08:33; Admin Dose 0.4 MG; Start 06/12/18 at 09:00 Tramadol HCl (Ultram) 50 mg Q6H PRN GTB PAIN LEVEL 4-7; Start 06/11/18 at 17:30 Hydralazine HCl (Apresoline) 10 mg Q4H PRN IV SBP>170; Start 06/11/18 at 19:30 Metoprolol Tartrate (Lopressor) 5 mg Q4H PRN IV HR>110 HOld SBP<100; Start 06/11/18 at 19:30 Vancomycin HCl 250 ml @ 125 mls/hr Q24H IVPB Last administered on 06/14/18 04:09; Admin Dose 125 MLS/HR; Start 06/12/18 at 04:00 Acetylcysteine (Mucomyst) 2 ml Q6H RESP THERAPY NEB Last administered on 06/14/18 09:56; Admin Dose 2 ML; Start 06/12/18 at 02:00 RORY JANSEN Jun 14, 2018 12:57
[2018-06-14] MEDS: DILTIAZEM 30 MG TAB PO SCH ×2 (14:34→21:49)
--- NOTE | 2018-06-14 16:05 | PN ---
Date/Time of Note Date/Time of Note DATE: 06/14/18 TIME: 16:01 Assessment/Plan VTE Prophylaxis Risk score (from Ns)>0 risk: 11 SCD applied (from [facility]): Yes Pharmacological prophylaxis: NA/contraindicated Pharm contraindication: low risk/ambulating Lines/Catheters IV Catheter Type (from [facility]): Saline Lock Urinary Cath still in place: Yes Reason Cath still needed: urinary retention Assessment/Plan Hospital Course 83 y.o with 1. Shortness of breath, could be secondary to underlying congestive heart failure, chronic obstructive pulmonary disease, also rule out aspiration. X-ray shows pneumonia 2. Chronic atrial fibrillation, was in rapid ventricular response on admission, and sotalol was on hold secondary to pauses however restarted back again by cardiology today 3. Sepsis, Bl. Cul. are positive. Fevers. UA negative. Chest Xray +pneumonia culture positive for staph repeat blood cultures have been negative questionable contaminant 4. Hypoxic respiratory failure. 5. Hypertension. 6. Status post donor renal transplantation. There are numerous 7. History of stroke with G-tube placement. With weakness 8. Hypothyroidism. 9. Hyperlipidemia. 10. G-tube placement. 11. Chronic bedbound status. Assessment/Plan -Started back on diltiazem per cardiology -Continue with vancomycin/cefepime -Repeat cultures negative -ID consult - nebs around the clock. - n.p.o. - c/w GI tube feed -Continue with sirolimus -Aspiration precautions. -c.w Gentle Lasix. -f/up cardiology consultation -GI prophylaxis Famotidine GT BID -DVT prophylaxis Eliquis BID -video swallow per OT later Result Diagram: 06/14/18 0427 06/14/18 0427 Results 24hrs Laboratory Tests Test 06/14/18 02:43 06/14/18 04:27 Vancomycin Level Trough 10.9 White Blood Count 5.7 # Red Blood Count 3.43 L Hemoglobin 10.5 L Hematocrit 35.4 L Mean Corpuscular Volume 103.2 H Mean Corpuscular Hemoglobin 30.6 Mean Corpuscular Hemoglobin Concent 29.7 L Red Cell Distribution Width 13.6 Platelet Count 162 Mean Platelet Volume 13.7 H Immature Granulocytes % 0.700 H Neutrophils % 69.9 Lymphocytes % 10.8 L Monocytes % 15.3 H Eosinophils % 3.0 Basophils % 0.3 Nucleated Red Blood Cells % 0.0 Immature Granulocytes # 0.040 H Neutrophils # 4.0 Lymphocytes # 0.6 L Monocytes # 0.9 Eosinophils # 0.2 Basophils # 0.0 Nucleated Red Blood Cells # 0.0 Sodium Level 146 H Potassium Level 3.5 Chloride Level 105 Carbon Dioxide Level 33 H Anion Gap 8 Blood Urea Nitrogen 25 #H Creatinine 0.66 Est Glomerular Filtrat Rate mL/min Glucose Level 133 # Calcium Level 8.2 L Subjective 24 Hr Interval Summary Free Text/Dictation Rate 110s-120s, started back on diltiazem Patient said that he feels " so so" Spoke to the son at the bedside Exam/Review of Systems Exam Vitals Vital Signs Date Temp Pulse Resp B/P (MAP) Pulse Ox O2 O2 Flow FiO2 Time Delivery Rate 06/14/18 97.9 95 16 114/64 99 15:36 (81) 06/14/18 Nasal 3.0 08:00 Cannula 06/13/18 30 03:45 Intake and Output 06/13/18 06/13/18 06/14/18 1515:00 23:00 07:00 IntakeIntake Total 460 ml BalanceBalance 460 ml Exam left arm av fistula Constitutional: alert, oriented (name) Eyes: nl conjunctiva Neck: supple Respiratory: diminished breath sounds irrgeular irregular Gastrointestinal: soft, other (GT) Musculoskeletal: muscle weakness Results Results 24hrs Laboratory Tests Test 06/14/18 02:43 06/14/18 04:27 Vancomycin Level Trough 10.9 White Blood Count 5.7 # Red Blood Count 3.43 L Hemoglobin 10.5 L Hematocrit 35.4 L Mean Corpuscular Volume 103.2 H Mean Corpuscular Hemoglobin 30.6 Mean Corpuscular Hemoglobin Concent 29.7 L Red Cell Distribution Width 13.6 Platelet Count 162 Mean Platelet Volume 13.7 H Immature Granulocytes % 0.700 H Neutrophils % 69.9 Lymphocytes % 10.8 L Monocytes % 15.3 H Eosinophils % 3.0 Basophils % 0.3 Nucleated Red Blood Cells % 0.0 Immature Granulocytes # 0.040 H Neutrophils # 4.0 Lymphocytes # 0.6 L Monocytes # 0.9 Eosinophils # 0.2 Basophils # 0.0 Nucleated Red Blood Cells # 0.0 Sodium Level 146 H Potassium Level 3.5 Chloride Level 105 Carbon Dioxide Level 33 H Anion Gap 8 Blood Urea Nitrogen 25 #H Creatinine 0.66 Est Glomerular Filtrat Rate mL/min Glucose Level 133 # Calcium Level 8.2 L Medications Medication Current Medications IV Flush (NS 3 ml) 3 ml PER PROTOCOL IV ; Start 06/11/18 at 17:30 Ondansetron HCl (Zofran Tab) 4 mg Q6H PRN PO NAUSEA/VOMITING; Start 06/11/18 at 17:30 Acetaminophen (Tylenol Tab) 650 mg Q6H PRN GTB .PAIN 1-3 OR TEMP; Start 06/11/18 at 17:30 Famotidine (Pepcid Iv) 20 mg DAILY IV Last administered on 06/14/18 08:32; Admin Dose 20 MG; Start 06/11/18 at 21:00 Vancomycin HCl (Vanco Iv Per Pharmacy) VANCOMYCIN PER PHARMACY PER PROTOCOL XX ; Start 06/11/18 at 17:30 Cefepime HCl 50 ml @ 100 mls/hr Q24H IVPB Last administered on 06/14/18 08:27; Admin Dose 100 MLS/HR; Start 06/11/18 at 09:00 Albuterol/ Ipratropium (Duoneb) 3 ml Q6H RESP THERAPY HHN Last administered on 06/14/18 13:53; Admin Dose 3 ML; Start 06/11/18 at 20:00 Furosemide (Lasix) 20 mg DAILY IV Last administered on 06/14/18 08:31; Admin Dose 20 MG; Start 06/11/18 at 19:00 Apixaban (Eliquis) 2.5 mg BID PO Last administered on 06/14/18 08:33; Admin Dose 2.5 MG; Start 06/11/18 at 21:00 Latanoprost (Xalatan) 1 drop QHS BOTH EYES Last administered on 06/13/18 20:48; Admin Dose 1 DROP; Start 06/11/18 at 21:00 Levothyroxine Sodium (Synthroid) 50 mcg BEFORE BREAKFAST GTB Last administered on 06/14/18 05:23; Admin Dose 50 MCG; Start 06/12/18 at 07:00 Eye Lubricant (Artificial Tears Oph) 1 drop PRN PRN BOTH EYES DRY EYES; Start 06/11/18 at 17:30 Sirolimus (Rapamune) 1 mg QHS GTB Last administered on 06/13/18 20:48; Admin Dose 1 MG; Start 06/11/18 at 21:00 Tamsulosin HCl (Flomax) 0.4 mg DAILY PO Last administered on 06/14/18 08:33; Admin Dose 0.4 MG; Start 06/12/18 at 09:00 Tramadol HCl (Ultram) 50 mg Q6H PRN GTB PAIN LEVEL 4-7; Start 06/11/18 at 17:30 Hydralazine HCl (Apresoline) 10 mg Q4H PRN IV SBP>170; Start 06/11/18 at 19:30 Metoprolol Tartrate (Lopressor) 5 mg Q4H PRN IV HR>110 HOld SBP<100; Start 06/11/18 at 19:30 Vancomycin HCl 250 ml @ 125 mls/hr Q24H IVPB Last administered on 06/14/18 04:09; Admin Dose 125 MLS/HR; Start 06/12/18 at 04:00 Acetylcysteine (Mucomyst) 2 ml Q6H RESP THERAPY NEB Last administered on 06/14/18at 13:54; Admin Dose 2 ML; Start 06/12/18 at 02:00 Diltiazem HCl (Cardizem) 30 mg Q8 PO Last administered on 06/14/18 14:34; Admin Dose 30 MG; Start 06/14/18 at 14:00 DAVEY GUTIERREZ MD Jun 14, 2018 16:05
--- NOTE | 2018-06-14 17:41 | CONS ---
DATE OF ADMISSION: 06/11/2018 DATE OF CONSULTATION: 06/14/2018 TYPE OF CONSULTATION: Infectious disease. REASON FOR CONSULTATION: Antibiotic management. HISTORY OF PRESENT ILLNESS: Abran Richey is an 83-year-old male who comes in with shortnes s of breath and congestion. Past problems include history of CVA, chronic hypoxia requiring oxygen, recent admission from outside hospital who presents now with acute shortness of breath. He was found to be more tachypneic with scattered rales on examination by EMS. He has a G-tube. PAST MEDICAL HISTORY: Operations as outlined. FAMILY HISTORY: Noncontributory. SOCIAL HISTORY: He does not smoke, drink or abuse drugs. ALLERGIES: NONE TO PENICILLIN, SULFA OR FOODS. MEDICATIONS: Per chart. REVIEW OF SYSTEMS: Per HPI. On admission, his white count was 11.2, H and H of 12.2 and 39.8, platelet count 187,000. BUN and cr eatinine is 35/0.75, glucose of 233,000. The patient was followed by Dr. Li with notes chronic a trial fibrillation, status post DDRT 9 years ago on sirolimus. He is also status post nephrectomy, w as on dialysis, status post DDRT 9 years ago as noted. He has hypertension, atrial fibrillation, hyp othyroidism, BPH, COPD and history of recent CVA 4 months ago with chronic hypoxia requiring oxygenat ion. The patient was at [facility] for 2 days and was sent to [facility] . According to the family, the patient could have aspirated. Chest x-ray showed postsurgical change s, left upper thorax, left basilar atelectasis, cardiomegaly and calcified aorta. PAST SURGICAL HISTORY: The patient had neck surgery many years ago. He had stent placed in the left arm and fistula, G-tube placement and status post partial thyroidectomy. PHYSICAL EXAMINATION: GENERAL: The patient is confused, weak in the left arm, in no acute distress. SKIN: Without generalized rash. HEENT: Within normal limits. NECK: Supple. LYMPH NODES: None palpable. CHEST: Decreased breath sound at the bases with scattered rhonchi and rales. HEART: Irregularly irregular rhythm. ABDOMEN: Soft, nontender. G-tube present. Surgical scar present. EXTREMITIES: Has a fistula in left upper arm, currently not working. RECTAL AND GENITAL: Deferred. NEUROLOGICAL: The patient is confused and moves all extremities. HOSPITAL COURSE: The patient was seen for atrial fibrillation with rapid ventricular response today by Dr. Cerrato, abnormal echocardiogram, assess for acute coronary syndrome, hypertension, shortness of breath with possible pneumonia by chest x-ray. The patient had leukocytosis. His white count now is 5.7. BUN and creatinine is 25/0.66. As noted on physical examination, he has irregularly irregu lar rhythm. He has catheter for urinary retention, chronic atrial fibrillation. The patient is curr ently on vancomycin and cefepime, although his x-ray was not remarkable. His blood culture is growin g Staphylococcus species, 1 out of 2 from 06/11/2018. Urine cultures are negative. Influenza type A and B are negative. Chest x-ray today shows left basilar infiltrate concerning for pneumonia, so we are treating mostly for aspiration pneumonitis. He is on vancomycin and cefepime. We may want to s top the vancomycin shortly. I will dictate my findings to Dr. Li. Dictated By: EMILY MELISSA MD, JD/JULIOCESAR Conf#: [id number] DID#: [id number] CC: NAVID GARCIA MD; KENNY STOVER MD;*End*
[2018-06-14] MEDS: SIROLIMUS 1 MG TAB GTB SCH (20:34)
[2018-06-14] MEDS: LATANOPROST 0.005% 2.5 ML OPH BOTH EYES SCH (21:04)
[2018-06-15] VITALS (12 sets, daily range): BP systolic 130–185; BP diastolic 65–95; PULSE 87–123; RESP 16–18
[2018-06-15] MEDS: ACETYLCYSTEINE 20% 4 ML VIAL NEB SCH ×4 (02:29→21:26)
[2018-06-15] MEDS: ALBUTEROL/IPRATROPIUM (NEB) 3 ML AMP HHN SCH ×4 (02:40→21:26)
[2018-06-15] MEDS: VANCOMYCIN 1 GM 250 ML IVPB SCH (03:59)
[2018-06-15] MEDS: LEVOTHYROXINE 50 MCG TAB GTB SCH (05:51)
[2018-06-15] MEDS: DILTIAZEM 30 MG TAB PO SCH ×3 (05:52→21:21)
[2018-06-15] MEDS: FAMOTIDINE 20 MG INJ IV SCH (08:43)
[2018-06-15] MEDS: APIXABAN 5 MG TABLET PO SCH ×2 (08:43→21:17)
[2018-06-15] MEDS: TAMSULOSIN (SR) 0.4 MG CAP PO SCH (08:43)
[2018-06-15] MEDS: CEFEPIME 1GM/50 ML (PMX) 50 ML IVPB SCH (08:43)
[2018-06-15] MEDS: FUROSEMIDE 20 MG INJ IV SCH (08:44)
--- NOTE | 2018-06-15 09:08 | CONS ---
Consultation Date/Type/Reason Admit Date/Time Jun 11, 2018 at 09:53 Type of Consult Cardiology Date/Time of Note DATE: 06/15/18 TIME: 09:06 Hx of Present Illness 83 yo with chronic a. fib - some pauses noted - mostly conversion pauses - pt very debilitated, h/o CVA, PNA now - this is not an idea time for pacer and risk/benefit ratio is questionable - will advise conservative Rx now given no true symptoms and no Class I indication for pacer - will try small dose of BB and follow clinically. Full EP note dictated # [id number] Past Medical History Home Meds Reported Medications Tramadol HCl (Tramadol HCl) 50 Mg Tablet, 50 MG G-TUBE Q6H PRN for PAIN LEVEL 4- 7, #120 TAB 06/11/18 Tiotropium [place]* (Spiriva*) 18 Mcg Cap.w.dev, 1 CAP INHALATION DAILY, #30 CAP 06/11/18 Sotalol Hcl* (Betapace*) 80 Mg Tab, 40 MG G-TUBE BID, TAB 06/11/18 Sirolimus* (Rapamune*) 1 Mg Tablet, 1 MG G-TUBE QHS, TAB 06/11/18 Levothyroxine Sodium* (Levoxyl*) 50 Mcg Tablet, 50 MCG GTB BEFORE BREAKFAST, #30 TAB 06/11/18 Latanoprost (Latanoprost) 2.5 Ml Drops, 1 DROP BOTH EYES QHS, #1 BOTTLE 06/11/18 Guaifenesin* (Refenesen*) 400 Mg Tablet, 400 MG G-TUBE Q8H PRN for COUGH, TAB 06/11/18 Tamsulosin Hcl* (Tamsulosin Hcl*) 0.4 Mg Cap.er.24h, 0.4 MG G-TUBE DAILY, CAP 06/11/18 Polyvinyl Alcohol (Tears Again) 15 Ml Drops, 15 ML OP PRN PRN for DRY EYES, BOTTLE 06/11/18 Apixaban* (Eliquis*) 2.5 Mg Tablet, 2.5 MG PO BID, TAB 06/11/18 Amlodipine Besylate* (Amlodipine Besylate*) 10 Mg Tablet, 10 MG G-TUBE DAILY, #30 TAB 06/11/18 Acetaminophen* (Acetaminophen* Susp) 325 Mg/10.15 Ml Solution, 640 MG G-TUBE Q4H PRN for PAIN OR TEMP ABOVE 38C, ML 06/11/18 Medications Current Medications IV Flush (NS 3 ml) 3 ml PER PROTOCOL IV ; Start 06/11/18 at 17:30 Ondansetron HCl (Zofran Tab) 4 mg Q6H PRN PO NAUSEA/VOMITING; Start 06/11/18 at 17:30 Acetaminophen (Tylenol Tab) 650 mg Q6H PRN GTB .PAIN 1-3 OR TEMP; Start 06/11/18 at 17:30 Famotidine (Pepcid Iv) 20 mg DAILY IV Last administered on 06/15/18 08:43; Admin Dose 20 MG; Start 06/11/18 at 21:00 Vancomycin HCl (Vanco Iv Per Pharmacy) VANCOMYCIN PER PHARMACY PER PROTOCOL XX ; Start 06/11/18 at 17:30 Cefepime HCl 50 ml @ 100 mls/hr Q24H IVPB Last administered on 06/15/18 08:43; Admin Dose 100 MLS/HR; Start 06/11/18 at 09:00 Albuterol/ Ipratropium (Duoneb) 3 ml Q6H RESP THERAPY HHN Last administered on 06/15/18 02:40; Admin Dose 3 ML; Start 06/11/18 at 20:00 Furosemide (Lasix) 20 mg DAILY IV Last administered on 06/15/18 08:44; Admin Dose 20 MG; Start 06/11/18 at 19:00 Apixaban (Eliquis) 2.5 mg BID PO Last administered on 06/15/18 08:43; Admin Dose 2.5 MG; Start 06/11/18 at 21:00 Latanoprost (Xalatan) 1 drop QHS BOTH EYES Last administered on 06/14/18 21:04; Admin Dose 1 DROP; Start 06/11/18 at 21:00 Levothyroxine Sodium (Synthroid) 50 mcg BEFORE BREAKFAST GTB Last administered on 06/15/18 05:51; Admin Dose 50 MCG; Start 06/12/18 at 07:00 Eye Lubricant (Artificial Tears Oph) 1 drop PRN PRN BOTH EYES DRY EYES; Start 06/11/18 at 17:30 Sirolimus (Rapamune) 1 mg QHS GTB Last administered on 06/14/18 20:34; Admin Dose 1 MG; Start 06/11/18 at 21:00 Tamsulosin HCl (Flomax) 0.4 mg DAILY PO Last administered on 06/15/18at 08:43; Admin Dose 0.4 MG; Start 06/12/18 at 09:00 Tramadol HCl (Ultram) 50 mg Q6H PRN GTB PAIN LEVEL 4-7; Start 06/11/18 at 17:30 Hydralazine HCl (Apresoline) 10 mg Q4H PRN IV SBP>170; Start 06/11/18 at 19:30 Metoprolol Tartrate (Lopressor) 5 mg Q4H PRN IV HR>110 HOld SBP<100; Start 06/11/18 at 19:30 Vancomycin HCl 250 ml @ 125 mls/hr Q24H IVPB Last administered on 06/15/18at 03:59; Admin Dose 125 MLS/HR; Start 06/12/18 at 04:00 Acetylcysteine (Mucomyst) 2 ml Q6H RESP THERAPY NEB Last administered on 06/15at 02:29; Admin Dose 2 ML; Start 06/12/18 at 02:00 Diltiazem HCl (Cardizem) 30 mg Q8 PO Last administered on 06/15/18at 05:52; Admin Dose 30 MG; Start 06/14/18 at 14:00 Allergies: Coded Allergies: No Known Allergy (Unverified , 06/11/18) Social History Smoking Status: Never smoker Exam/Review of Systems Vital Signs Vitals Vital Signs Date Temp Pulse Resp B/P (MAP) Pulse Ox O2 O2 Flow FiO2 Time Delivery Rate 06/15/18 98.3 96 16 141/79 97 07:48 (99) 06/15/18 3.0 02:21 06/15/18 Nasal 02:20 Cannula 06/13/18 30 03:45 Intake and Output 06/14/18 06/14/18 06/15/18 1515:00 23:00 07:00 IntakeIntake Total 580 ml 680 ml BalanceBalance 580 ml 680 ml Labs Result Diagram: 06/15/1852006/15/18520 Results 24hrs Laboratory Tests Test 06/15/18 05:21 White Blood Count 8.1 # Red Blood Count 3.74 L Hemoglobin 11.8 L Hematocrit 38.2 L Mean Corpuscular Volume 102.1 H Mean Corpuscular Hemoglobin 31.6 Mean Corpuscular Hemoglobin Concent 30.9 L Red Cell Distribution Width 13.3 Platelet Count 161 Mean Platelet Volume 13.3 H Immature Granulocytes % 0.700 H Neutrophils % 77.8 H Lymphocytes % 7.8 L Monocytes % 11.3 H Eosinophils % 2.2 Basophils % 0.2 Nucleated Red Blood Cells % 0.0 Immature Granulocytes # 0.060 H Neutrophils # 6.3 Lymphocytes # 0.6 L Monocytes # 0.9 Eosinophils # 0.2 Basophils # 0.0 Nucleated Red Blood Cells # 0.0 Sodium Level 144 Potassium Level 3.7 Chloride Level 101 Carbon Dioxide Level 38 H Anion Gap 5 Blood Urea Nitrogen 21 H Creatinine 0.68 Est Glomerular Filtrat Rate mL/min Glucose Level 199 Calcium Level 9.2 Phosphorus Level 2.5 Magnesium Level 2.1 Medications Medications Current Medications IV Flush (NS 3 ml) 3 ml PER PROTOCOL IV ; Start 06/11/18 at 17:30 Ondansetron HCl (Zofran Tab) 4 mg Q6H PRN PO NAUSEA/VOMITING; Start 06/11/18 at 17:30 Acetaminophen (Tylenol Tab) 650 mg Q6H PRN GTB .PAIN 1-3 OR TEMP; Start 06/11/18 at 17:30 Famotidine (Pepcid Iv) 20 mg DAILY IV Last administered on 06/15/18at 08:43; Admin Dose 20 MG; Start 06/11/18 at 21:00 Vancomycin HCl (Vanco Iv Per Pharmacy) VANCOMYCIN PER PHARMACY PER PROTOCOL XX ; Start 06/11/18 at 17:30 Cefepime HCl 50 ml @ 100 mls/hr Q24H IVPB Last administered on 06/15/18at 08:43; Admin Dose 100 MLS/HR; Start 06/11/18 at 09:00 Albuterol/ Ipratropium (Duoneb) 3 ml Q6H RESP THERAPY HHN Last administered on 06/15/18at 02:40; Admin Dose 3 ML; Start 06/11/18 at 20:00 Furosemide (Lasix) 20 mg DAILY IV Last administered on 06/15/18at 08:44; Admin Dose 20 MG; Start 06/11/18 at 19:00 Apixaban (Eliquis) 2.5 mg BID PO Last administered on 06/15/18 08:43; Admin Dose 2.5 MG; Start 06/11/18 at 21:00 Latanoprost (Xalatan) 1 drop QHS BOTH EYES Last administered on 06/14/18 21:04; Admin Dose 1 DROP; Start 06/11/18 at 21:00 Levothyroxine Sodium (Synthroid) 50 mcg BEFORE BREAKFAST GTB Last administered on 06/15/18 05:51; Admin Dose 50 MCG; Start 06/12/18 at 07:00 Eye Lubricant (Artificial Tears Oph) 1 drop PRN PRN BOTH EYES DRY EYES; Start 06/11/18 at 17:30 Sirolimus (Rapamune) 1 mg QHS GTB Last administered on 06/14/18 20:34; Admin Dose 1 MG; Start 06/11/18 at 21:00 Tamsulosin HCl (Flomax) 0.4 mg DAILY PO Last administered on 06/15/18 08:43; Admin Dose 0.4 MG; Start 06/12/18 at 09:00 Tramadol HCl (Ultram) 50 mg Q6H PRN GTB PAIN LEVEL 4-7; Start 06/11/18 at 17:30 Hydralazine HCl (Apresoline) 10 mg Q4H PRN IV SBP>170; Start 06/11/18 at 19:30 Metoprolol Tartrate (Lopressor) 5 mg Q4H PRN IV HR>110 HOld SBP<100; Start 06/11/18 at 19:30 Vancomycin HCl 250 ml @ 125 mls/hr Q24H IVPB Last administered on 06/15/18 03:59; Admin Dose 125 MLS/HR; Start 06/12/18 at 04:00 Acetylcysteine (Mucomyst) 2 ml Q6H RESP THERAPY NEB Last administered on 06/15/18 02:29; Admin Dose 2 ML; Start 06/12/18 at 02:00 Diltiazem HCl (Cardizem) 30 mg Q8 PO Last administered on 06/15/18 05:52; Admin Dose 30 MG; Start 06/14/18 at 14:00 JUSTO VILLASENOR MD Jun 15, 2018 09:08
--- NOTE | 2018-06-15 13:33 | CONS ---
Assessment/Plan Assessment/Plan Hospital Course (Demo Recall) Patient is awake looks comfortable denies pain no fevers overnight. WBC 8.1 platelets 161 neutrophils 77.8 BUN 21 creatinine 0.68 Microbiology: Blood culture grew coag negative staph 1 out of 2 sets urine culture negative Chest x-ray revealed left basilar infiltrate and trace left pleural effusion Indwelling: Back Antimicrobials: Vancomycin, cefepime Physical examination: This is a chronically ill-appearing wasted elderly man who is awake in no distress. Head atraumatic normocephalic sclera nonicteric vehicle mucosa dry neck is supple chest rise symmetrical breath sounds diminishe d bases. Heart: S1-S2. Abdomen soft bowel sounds present. Extremities without cyanosis edema. Assessment: 1. Healthcare associated pneumonia, possibly aspiration 2. Coag negative staph bacteremia, consistent with contaminant 3. Dysphasia 4. Hypertension 5. BPH 6. Atrial fibrillation, status post RVR Plan: Patient is stable, continue antibiotics for pneumonia Consultation Date/Type/Reason Admit Date/Time Jun 11, 2018 at 09:53 Initial Consult Date Type of Consult id Requesting Provider: DAVEY GUTIERREZ MD Date/Time of Note DATE: 06/15/18 TIME: 13:33 Exam/Review of Systems Exam Vitals Vital Signs Date Temp Pulse Resp B/P (MAP) Pulse Ox O2 O2 Flow FiO2 Time Delivery Rate 06/15/18 98.1 93 16 185/95 99 11:42 (125) 06/15/18 5.0 10:48 06/15/18 Nasal 10:47 Cannula 06/13/18 30 03:45 Intake and Output 06/14/18 06/14/18 06/15/18 1515:00 23:00 07:00 IntakeIntake Total 580 ml 680 ml BalanceBalance 580 ml 680 ml Results Result Diagram: 06/15/18 0521 06/15/18 0521 Results 24hrs Laboratory Tests Test 06/15/18 05:21 White Blood Count 8.1 # Red Blood Count 3.74 L Hemoglobin 11.8 L Hematocrit 38.2 L Mean Corpuscular Volume 102.1 H Mean Corpuscular Hemoglobin 31.6 Mean Corpuscular Hemoglobin Concent 30.9 L Red Cell Distribution Width 13.3 Platelet Count 161 Mean Platelet Volume 13.3 H Immature Granulocytes % 0.700 H Neutrophils % 77.8 H Lymphocytes % 7.8 L Monocytes % 11.3 H Eosinophils % 2.2 Basophils % 0.2 Nucleated Red Blood Cells % 0.0 Immature Granulocytes # 0.060 H Neutrophils # 6.3 Lymphocytes # 0.6 L Monocytes # 0.9 Eosinophils # 0.2 Basophils # 0.0 Nucleated Red Blood Cells # 0.0 Sodium Level 144 Potassium Level 3.7 Chloride Level 101 Carbon Dioxide Level 38 H Anion Gap 5 Blood Urea Nitrogen 21 H Creatinine 0.68 Est Glomerular Filtrat Rate mL/min Glucose Level 199 Calcium Level 9.2 Phosphorus Level 2.5 Magnesium Level 2.1 Medications Medication Current Medications IV Flush (NS 3 ml) 3 ml PER PROTOCOL IV ; Start 06/11/18 at 17:30 Ondansetron HCl (Zofran Tab) 4 mg Q6H PRN PO NAUSEA/VOMITING; Start 06/11/18 at 17:30 Acetaminophen (Tylenol Tab) 650 mg Q6H PRN GTB .PAIN 1-3 OR TEMP; Start 06/11/18 at 17:30 Famotidine (Pepcid Iv) 20 mg DAILY IV Last administered on 06/15/18 08:43; Admin Dose 20 MG; Start 06/11/18 at 21:00 Vancomycin HCl (Vanco Iv Per Pharmacy) VANCOMYCIN PER PHARMACY PER PROTOCOL XX ; Start 06/11/18 at 17:30 Cefepime HCl 50 ml @ 100 mls/hr Q24H IVPB Last administered on 06/15/18 08:43; Admin Dose 100 MLS/HR; Start 06/11/18 at 09:00 Albuterol/ Ipratropium (Duoneb) 3 ml Q6H RESP THERAPY HHN Last administered on 06/15/18at 10:36; Admin Dose 3 ML; Start 06/11/18 at 20:00 Furosemide (Lasix) 20 mg DAILY IV Last administered on 06/15/18 08:44; Admin Dose 20 MG; Start 06/11/18 at 19:00 Apixaban (Eliquis) 2.5 mg BID PO Last administered on 06/15/18 08:43; Admin Dose 2.5 MG; Start 06/11/18 at 21:00 Latanoprost (Xalatan) 1 drop QHS BOTH EYES Last administered on 06/14/18at 21:04; Admin Dose 1 DROP; Start 06/11/18 at 21:00 Levothyroxine Sodium (Synthroid) 50 mcg BEFORE BREAKFAST GTB Last administered on 06/15/18 05:51; Admin Dose 50 MCG; Start 06/12/18 at 07:00 Eye Lubricant (Artificial Tears Oph) 1 drop PRN PRN BOTH EYES DRY EYES; Start 06/11/18 at 17:30 Sirolimus (Rapamune) 1 mg QHS GTB Last administered on 06/14/18 20:34; Admin Dose 1 MG; Start 06/11/18 at 21:00 Tamsulosin HCl (Flomax) 0.4 mg DAILY PO Last administered on 06/15/18 08:43; Admin Dose 0.4 MG; Start 06/12/18 at 09:00 Tramadol HCl (Ultram) 50 mg Q6H PRN GTB PAIN LEVEL 4-7; Start 06/11/18 at 17:30 Hydralazine HCl (Apresoline) 10 mg Q4H PRN IV SBP>170 Last administered on 06/15/18 12:59; Admin Dose 10 MG; Start 06/11/18 at 19:30 Metoprolol Tartrate (Lopressor) 5 mg Q4H PRN IV HR>110 HOld SBP<100; Start 06/11/18 at 19:30 Vancomycin HCl 250 ml @ 125 mls/hr Q24H IVPB Last administered on 06/15/18 03:59; Admin Dose 125 MLS/HR; Start 06/12/18 at 04:00 Acetylcysteine (Mucomyst) 2 ml Q6H RESP THERAPY NEB Last administered on 06/15/18 10:38; Admin Dose 2 ML; Start 06/12/18 at 02:00 Diltiazem HCl (Cardizem) 30 mg Q8 PO Last administered on 06/15/18 05:52; Admin Dose 30 MG; Start 06/14/18 at 14:00 Carvedilol (Coreg) 6.25 mg BID PO Last administered on 06/15/18 10:26; Admin Dose 6.25 MG; Start 06/15/18 at 10:00 ALEE CASTAÑEDA NP Jun 15, 2018 13:33
--- NOTE | 2018-06-15 14:23 | CONS ---
DATE OF ADMISSION: 06/11/2018 DATE OF CONSULTATION: 06/15/2018 TYPE OF CONSULTATION: Cardiology. REFERRING PHYSICIAN: Rory Cerrato MD and Kenny Stover MD REASON FOR EVALUATION: Atrial fibrillation with pauses. HISTORY OF PRESENT ILLNESS: Mr. Richey is an 83-year-old gentleman with a prior history of CVA, his tory of oxygen dependent respiratory failure, history of chronic debilitated state, atrial fibrillati on on baseline sotalol and Eliquis, who comes to the hospital now with some shortness of breath and t achypnea. The patient has pneumonia on presentation. The patient was optimized by Dr. Cerrato and i s doing somewhat better now, although he was treated for pneumonia. The patient had some episodes of bradycardia with conversion pauses up to 4 seconds 2 nights ago. The patient is currently tachycard ic. He fits the criteria for tachybrady syndrome. The patient is full code; however, he is extremel y debilitated with CVA. He appears to be asymptomatic with active pneumonia. Given the fact that I think the risks and benefits of therapy is still with conservative therapy at this particular point, we will see if patient will tolerate a small dose of metoprolol now. If he is a fairly tachycardic s till after his pneumonia is being treated and he appears to be tolerated diltiazem at the moment with out any issues with fairly high fast rate, I think for now conservative therapy is expected. [facility] a class I indication for pacemaker as conversion pause and atrial fibrillation wit h sikhism would not qualify for automatic pacemaker unless the patient is symptomatic. PAST MEDICAL HISTORY: 1. Hypertension. 2. Dyslipidemia. 3. History of atrial fibrillation. 4. Chronic history of secondary hypercoagulable state. 5. History of CVA. 6. History of chronic debilitated state. ALLERGIES: NO KNOWN DRUG ALLERGIES. SOCIAL HISTORY: The patient does not smoke, does not drink or does not use any drugs. FAMILY HISTORY: Negative for sudden cardiac , premature coronary artery disease. MEDICATIONS: Currently, he is on: 1. ____ mg p.o. q.8 hours. 2. Flomax 0.4 mg once a day. 3. Levothyroxine 50 mcg p.o. once a day. 4. ____ 5. Eliquis 2.5 b.i.d. 6. Sirolimus. 7. Hydralazine. 8. Metoprolol titrate IV as needed. 9. Ondansetron. REVIEW OF SYSTEMS: CONSTITUTIONAL: Recent fevers and chills, recent pneumonia. HEENT: No changes in vision or hearing. CARDIAC: No chest pain reported, tachycardia or atrial fibrillation. RESPIRATORY: Short of breath, acute on chronic. GASTROINTESTINAL: No nausea, vomiting, diarrhea or constipation. GENITOURINARY: No dysuria or hematuria. HEMATOLOGIC: No easy bruising. NEUROLOGIC: History of CVA. PSYCHIATRIC: History of depression. PHYSICAL EXAMINATION: VITAL SIGNS: Temperature is 98.3, heart rate 96 now, blood pressure 141/79. GENERAL: He is a thin gentleman in no acute distress, alert and oriented x1 to 2, not really aware o f his medical condition. HEENT: Head is normocephalic, atraumatic. Conjunctivae are intact. NECK: Supple. JVD is 6 cm. There is no lymphadenopathy. HEART: Irregularly irregular with soft holosystolic murmur. PMI is nondisplaced. I do not hear an S3. LUNGS: Coarse to base. ABDOMEN: Distended. Bowel sounds are present. There is no hepatosplenomegaly. GENITOURINARY: Intact. EXTREMITIES: No changes injection. EXTREMITIES: Show no clubbing, cyanosis, edema. NEUROLOGICAL: Partial paralysis, status post CVA. DIAGNOSTIC DATA: ECG shows atrial fibrillation as noted. I reviewed his telemetry strips. There ar e some pauses including conversion pauses to sinus rhythm. There is some attempt at conversion pause s without any true conversion. LABORATORY DATA: White blood cell count 8.1, hemoglobin 9.8, platelets 161. INR is 1.0. Sodium 144 , potassium 3.7, his BUN is 21, creatinine 0.6. ASSESSMENT AND PLAN: 1. Atrial fibrillation with pauses. The patient has episodes of atrial fibrillation with attempt at conversion. He has diagnosis of tachybrady syndrome; however the patient appears to be fairly sympt omatic. He has multiple comorbidities including cerebrovascular accident as well as recent pneumonia and as such, I think that this would not be an optimal time to put in a pacemaker. I think the eliel ent will have to recover and then we will monitor. He appears to be tolerated his AV grace agents fa irly well at this particular point. He was on sotalol prior which could have contributed to the conv ersion pauses. He is on diltiazem now. I think it is reasonable to try a small dose of beta viky to see if we can rate control him a little bit better. Other than that, we will monitor him clinica lly for now. 2. Secondary hypercoagulable state. We will continue the patient on Eliquis dose adjusted rate at 2 .5 mg b.i.d. is noted. 3. Pneumonia. Continue pneumonia care per primary team. 4. Prior cerebrovascular accident. Defer to neurology team. The patient appears to be fairly hemod ynamically stable as noted. 5. Anemia. Hemoglobin is fairly stable. No evidence of bleeding now. I would like to thank Dr. Cerrato and Dr. Stover for referring this patient for my evaluation. Dictated By: JUSTO VILLASENOR MD ML/NTS Conf#: [id number] DID#: [id number] CC: RORY CERRATO MD; NAVID GARCIA MD; KENNY STOVER MD;*End*
[2018-06-15] MEDS ORDERED: ONDANSETRON 4 MG INJ IV PRN ×2 (16:30)
--- NOTE | 2018-06-15 17:39 | PN ---
Date/Time of Note Date/Time of Note DATE: 06/15/18 TIME: 17:37 Assessment/Plan VTE Prophylaxis Risk score (from [facility])>0 risk: 11 SCD applied (from [facility]): No SCD contraindicated: low risk/ambulating Pharmacological prophylaxis: NA/contraindicated Pharm contraindication: low risk/ambulating Lines/Catheters IV Catheter Type (from [facility]): [place] Urinary Cath still in place: Yes Reason Cath still needed: urinary retention Assessment/Plan Hospital Course 83 y.o with 1. Shortness of breath, could be secondary to underlying congestive heart failure, chronic obstructive pulmonary disease, also rule out aspiration. X-ray shows pneumonia 2. Chronic atrial fibrillation, was in rapid ventricular response on admission, and sotalol was on hold secondary to pauses however restarted back again by cardiology today 3. Sepsis, Bl. Cul. are positive. Fevers. UA negative. Chest Xray +pneumonia culture positive for staph repeat blood cultures have been negative questionable contaminant 4. Hypoxic respiratory failure. 5. Hypertension. 6. Status post donor renal transplantation. There are numerous 7. History of stroke with G-tube placement. With weakness 8. Hypothyroidism. 9. Hyperlipidemia. 10. G-tube placement. 11. Chronic bedbound status. Assessment/Plan -Started back on diltiazem COREG per cards -Continue with vancomycin/cefepime -Repeat cultures negative -Vancomycin/cefepime -Hold the feeding, KUB, ZOFRAN prn - nebs around the clock. -Continue with sirolimus -Aspiration precautions. -c.w Gentle Lasix. -f/up cardiology consultation -GI prophylaxis Famotidine GT BID -DVT prophylaxis Eliquis BID -video swallow per OT later Result Diagram: 06/15/18 0521 06/15/18 0521 Results 24hrs Laboratory Tests Test 06/15/18 05:21 White Blood Count 8.1 # Red Blood Count 3.74 L Hemoglobin 11.8 L Hematocrit 38.2 L Mean Corpuscular Volume 102.1 H Mean Corpuscular Hemoglobin 31.6 Mean Corpuscular Hemoglobin Concent 30.9 L Red Cell Distribution Width 13.3 Platelet Count 161 Mean Platelet Volume 13.3 H Immature Granulocytes % 0.700 H Neutrophils % 77.8 H Lymphocytes % 7.8 L Monocytes % 11.3 H Eosinophils % 2.2 Basophils % 0.2 Nucleated Red Blood Cells % 0.0 Immature Granulocytes # 0.060 H Neutrophils # 6.3 Lymphocytes # 0.6 L Monocytes # 0.9 Eosinophils # 0.2 Basophils # 0.0 Nucleated Red Blood Cells # 0.0 Sodium Level 144 Potassium Level 3.7 Chloride Level 101 Carbon Dioxide Level 38 H Anion Gap 5 Blood Urea Nitrogen 21 H Creatinine 0.68 Est Glomerular Filtrat Rate mL/min Glucose Level 199 Calcium Level 9.2 Phosphorus Level 2.5 Magnesium Level 2.1 Subjective 24 Hr Interval Summary Free Text/Dictation An episode of vomiting. High G-tube residuals feeding held Heart rate of Angel stewart was in the 120s started on beta-viky per cardiology better now Exam/Review of Systems Exam Vitals Vital Signs Date Temp Pulse Resp B/P (MAP) Pulse Ox O2 O2 Flow FiO2 Time Delivery Rate 06/15/18 123 16:00 06/15/18 97.6 16 139/89 98 15:31 (106) 06/15/18 4.0 15:18 06/15/18 Nasal 15:16 Cannula 06/13/18 30 03:45 Intake and Output 06/14/18 06/14/18 06/15/18 1515:00 23:00 07:00 IntakeIntake Total 580 ml 680 ml BalanceBalance 580 ml 680 ml Exam ft arm av fistula Constitutional: alert, oriented (name) Eyes: nl conjunctiva Neck: supple Respiratory: diminished breath sounds irrgeular irregular Gastrointestinal: soft, other (GT) Musculoskeletal: muscle weakness Results Results 24hrs Laboratory Tests Test 06/15/18 05:21 White Blood Count 8.1 # Red Blood Count 3.74 L Hemoglobin 11.8 L Hematocrit 38.2 L Mean Corpuscular Volume 102.1 H Mean Corpuscular Hemoglobin 31.6 Mean Corpuscular Hemoglobin Concent 30.9 L Red Cell Distribution Width 13.3 Platelet Count 161 Mean Platelet Volume 13.3 H Immature Granulocytes % 0.700 H Neutrophils % 77.8 H Lymphocytes % 7.8 L Monocytes % 11.3 H Eosinophils % 2.2 Basophils % 0.2 Nucleated Red Blood Cells % 0.0 Immature Granulocytes # 0.060 H Neutrophils # 6.3 Lymphocytes # 0.6 L Monocytes # 0.9 Eosinophils # 0.2 Basophils # 0.0 Nucleated Red Blood Cells # 0.0 Sodium Level 144 Potassium Level 3.7 Chloride Level 101 Carbon Dioxide Level 38 H Anion Gap 5 Blood Urea Nitrogen 21 H Creatinine 0.68 Est Glomerular Filtrat Rate mL/min Glucose Level 199 Calcium Level 9.2 Phosphorus Level 2.5 Magnesium Level 2.1 Medications Medication Current Medications IV Flush (NS 3 ml) 3 ml PER PROTOCOL IV ; Start 06/11/18 at 17:30 Ondansetron HCl (Zofran Tab) 4 mg Q6H PRN PO NAUSEA/VOMITING; Start 06/11/18 at 17:30 Acetaminophen (Tylenol Tab) 650 mg Q6H PRN GTB .PAIN 1-3 OR TEMP; Start 06/11/18 at 17:30 Famotidine (Pepcid Iv) 20 mg DAILY IV Last administered on 06/15/18 08:43; Admin Dose 20 MG; Start 06/11/18 at 21:00 Vancomycin HCl (Vanco Iv Per Pharmacy) VANCOMYCIN PER PHARMACY PER PROTOCOL XX ; Start 06/11/18 at 17:30 Cefepime HCl 50 ml @ 100 mls/hr Q24H IVPB Last administered on 06/15/18 08:43; Admin Dose 100 MLS/HR; Start 06/11/18 at 09:00 Albuterol/ Ipratropium (Duoneb) 3 ml Q6H RESP THERAPY HHN Last administered on 06/15/18 15:03; Admin Dose 3 ML; Start 06/11/18 at 20:00 Furosemide (Lasix) 20 mg DAILY IV Last administered on 06/15/18 08:44; Admin Dose 20 MG; Start 06/11/18 at 19:00 Apixaban (Eliquis) 2.5 mg BID PO Last administered on 06/15/18 08:43; Admin Dose 2.5 MG; Start 06/11/18 at 21:00 Latanoprost (Xalatan) 1 drop QHS BOTH EYES Last administered on 06/14/18 21:04; Admin Dose 1 DROP; Start 06/11/18 at 21:00 Levothyroxine Sodium (Synthroid) 50 mcg BEFORE BREAKFAST GTB Last administered on 06/15/18 05:51; Admin Dose 50 MCG; Start 06/12/18 at 07:00 Eye Lubricant (Artificial Tears Oph) 1 drop PRN PRN BOTH EYES DRY EYES; Start 06/11/18 at 17:30 Sirolimus (Rapamune) 1 mg QHS GTB Last administered on 06/14/18 20:34; Admin Dose 1 MG; Start 06/11/18 at 21:00 Tamsulosin HCl (Flomax) 0.4 mg DAILY PO Last administered on 06/15/18 08:43; Admin Dose 0.4 MG; Start 06/12/18 at 09:00 Tramadol HCl (Ultram) 50 mg Q6H PRN GTB PAIN LEVEL 4-7; Start 06/11/18 at 17:30 Hydralazine HCl (Apresoline) 10 mg Q4H PRN IV SBP>170 Last administered on 06/15/18 12:59; Admin Dose 10 MG; Start 06/11/18 at 19:30 Metoprolol Tartrate (Lopressor) 5 mg Q4H PRN IV HR>110 HOld SBP<100 Last administered on 06/15/18 15:29; Admin Dose 5 MG; Start 06/11/18 at 19:30 Vancomycin HCl 250 ml @ 125 mls/hr Q24H IVPB Last administered on 06/15/18 03:59; Admin Dose 125 MLS/HR; Start 06/12/18 at 04:00 Acetylcysteine (Mucomyst) 2 ml Q6H RESP THERAPY NEB Last administered on 06/15/18 15:06; Admin Dose 2 ML; Start 06/12/18 at 02:00 Diltiazem HCl (Cardizem) 30 mg Q8 PO Last administered on 06/15/18 14:55; Admin Dose 30 MG; Start 06/14/18 at 14:00 Carvedilol (Coreg) 6.25 mg BID PO Last administered on 06/15/18 10:26; Admin Dose 6.25 MG; Start 06/15/18 at 10:00 Ondansetron HCl (Zofran Inj) 4 mg Q6H PRN IV NAUSEA AND/OR VOMITING Last administered on 06/15/18 16:11; Admin Dose 4 MG; Start 06/15/18 at 16:30 DAVEY GUTIERREZ MD Jun 15, 2018 17:39
[2018-06-15] MEDS ORDERED: DEXTROSE 5%-0.45% NACL 1,000 ML IV SCH (18:00)
[2018-06-15] MEDS: SIROLIMUS 1 MG TAB GTB SCH (21:17)
[2018-06-15] MEDS: LATANOPROST 0.005% 2.5 ML OPH BOTH EYES SCH (21:18)
[2018-06-16] VITALS (12 sets, daily range): BP systolic 101–131; BP diastolic 55–66; PULSE 65–109; RESP 16–22
[2018-06-16] MEDS: ALBUTEROL/IPRATROPIUM (NEB) 3 ML AMP HHN SCH ×4 (02:33→20:28)
[2018-06-16] MEDS: ACETYLCYSTEINE 20% 4 ML VIAL NEB SCH ×4 (02:33→20:28)
[2018-06-16] MEDS: VANCOMYCIN 1 GM 250 ML IVPB SCH (04:13)
[2018-06-16] MEDS: LEVOTHYROXINE 50 MCG TAB GTB SCH (05:55)
[2018-06-16] MEDS: DILTIAZEM 30 MG TAB PO SCH ×3 (05:55→20:39)
[2018-06-16] MEDS: FAMOTIDINE 20 MG INJ IV SCH (08:59)
[2018-06-16] MEDS ORDERED: METOPROLOL 25 MG TAB GTB SCH (09:00)
[2018-06-16] MEDS: FUROSEMIDE 20 MG INJ IV SCH (09:00)
[2018-06-16] MEDS: APIXABAN 5 MG TABLET PO SCH ×2 (09:01→20:38)
[2018-06-16] MEDS: CEFEPIME 1GM/50 ML (PMX) 50 ML IVPB SCH (09:02)
[2018-06-16] MEDS: TAMSULOSIN (SR) 0.4 MG CAP PO SCH (09:17)
--- NOTE | 2018-06-16 12:59 | PN ---
Date/Time of Note Date/Time of Note DATE: 06/16/18 TIME: 12:59 Assessment/Plan VTE Prophylaxis Risk score (from [facility])>0 risk: 8 SCD applied (from [facility]): No SCD contraindicated: low risk/ambulating Pharmacological prophylaxis: NA/contraindicated Pharm contraindication: low risk/ambulating Lines/Catheters IV C[facility]ter Type (from [facility]): Peripheral IV Urinary Cath still in place: Yes Reason Cath still needed: urinary retention Assessment/Plan Hospital Course 83 y.o with 1. Shortness of breath, could be secondary to underlying congestive heart failure, chronic obstructive pulmonary disease, also rule out aspiration. X-ray shows pneumonia [facility] associated Pna 2. Chronic atrial fibrillation, was in rapid ventricular response on admission, and sotalol was on hold secondary to pauses however restarted back again by cardiology 3. Sepsis, Bl. Cul. are positive. Fevers. UA negative. Chest Xray +pneumonia culture positive for staph repeat blood cultures have been negative questionable contaminant 4. Hypoxic respiratory failure. 5. Hypertension. 6. Status post donor renal transplantation. There are numerous 7. History of stroke with G-tube placement. With weakness 8. Hypothyroidism. 9. Hyperlipidemia. 10. G-tube placement. 11. Chronic bedbound status. Assessment/Plan -Started back on diltiazem COREG per cards,s topped MTP now, per cards if Hr not controlled by agents , pt still has pauses > woukd require pacemaker, but acc to son his father never wanted it - will call pallattive care -Continue with vancomycin/cefepime -Repeat cultures negative - KUB neg, dc D5 - nebs around the clock. -Continue with sirolimus -Aspiration precautions. -c.w Gentle Lasix. -f/up cardiology consultation -GI prophylaxis Famotidine GT BID -DVT prophylaxis Eliquis BID -video swallow per OT later , Result Diagram: 06/15/18 0521 06/16/18 0507 Results 24hrs Laboratory Tests Test 06/16/18 05:07 Sodium Level 142 Potassium Level 4.3 Chloride Level 98 Carbon Dioxide Level 36 H Anion Gap 8 Blood Urea Nitrogen 32 #H Creatinine 1.08 Est Glomerular Filtrat Rate mL/min Glucose Level 147 # Calcium Level 9.1 Total Bilirubin 0.8 Direct Bilirubin 0.00 Indirect Bilirubin 0.8 Aspartate Amino Transf (AST/SGOT) 30 Alanine Aminotransferase (ALT/SGPT) 30 Alkaline Phosphatase 77 Total Protein 6.9 Albumin 3.5 Globulin 3.40 H Albumin/Globulin Ratio 1.02 Lipase 234 Subjective 24 Hr Interval Summary Free Text/Dictation had 2.2 seconda pause yesterday Pt was on coreg/MTP stopped MTP today feeding resumed Exam/Review of Systems Exam Vitals Vital Signs Date Temp Pulse Resp B/P (MAP) Pulse Ox O2 O2 Flow FiO2 Time Delivery Rate 06/16/18 97.8 73 22 101/57 96 Nasal 11:39 (72) Cannula 06/16/18 2.0 08:10 06/13/18 30 03:45 Intake and Output 06/15/18 06/15/18 06/16/18 1414:59 22:59 06:59 IntakeIntake Total 590 ml 200 ml BalanceBalance 590 ml 200 ml Exam t arm av fistula Constitutional: alert, oriented (name) Eyes: nl conjunctiva Neck: supple Respiratory: diminished breath sounds irrgeular irregular Gastrointestinal: soft, other (GT) Musculoskeletal: muscle weakness Results Results 24hrs Laboratory Tests Test 06/16/18 05:07 Sodium Level 142 Potassium Level 4.3 Chloride Level 98 Carbon Dioxide Level 36 H Anion Gap 8 Blood Urea Nitrogen 32 #H Creatinine 1.08 Est Glomerular Filtrat Rate mL/min Glucose Level 147 # Calcium Level 9.1 Total Bilirubin 0.8 Direct Bilirubin 0.00 Indirect Bilirubin 0.8 Aspartate Amino Transf (AST/SGOT) 30 Alanine Aminotransferase (ALT/SGPT) 30 Alkaline Phosphatase 77 Total Protein 6.9 Albumin 3.5 Globulin 3.40 H Albumin/Globulin Ratio 1.02 Lipase 234 Medications Medication Current Medications IV Flush (NS 3 ml) 3 ml PER PROTOCOL IV ; Start 06/11/18 at 17:30 Ondansetron HCl (Zofran Tab) 4 mg Q6H PRN PO NAUSEA/VOMITING; Start 06/11/18 at 17:30 Acetaminophen (Tylenol Tab) 650 mg Q6H PRN GTB .PAIN 1-3 OR TEMP; Start 06/11/18 at 17:30 Famotidine (Pepcid Iv) 20 mg DAILY IV Last administered on 06/16/18at 08:59; Admin Dose 20 MG; Start 06/11/18 at 21:00 Vancomycin HCl (Vanco Iv Per Pharmacy) VANCOMYCIN PER PHARMACY PER PROTOCOL XX ; Start 06/11/18 at 17:30 Cefepime HCl 50 ml @ 100 mls/hr Q24H IVPB Last administered on 06/16/18 09:02; Admin Dose 100 MLS/HR; Start 06/11/18 at 09:00 Albuterol/ Ipratropium (Duoneb) 3 ml Q6H RESP THERAPY HHN Last administered on 06/16/18 08:00; Admin Dose 3 ML; Start 06/11/18 at 20:00 Furosemide (Lasix) 20 mg DAILY IV Last administered on 06/16/18 09:00; Admin Dose 20 MG; Start 06/11/18 at 19:00 Apixaban (Eliquis) 2.5 mg BID PO Last administered on 06/16/18 09:01; Admin Dose 2.5 MG; Start 06/11/18 at 21:00 Latanoprost (Xalatan) 1 drop QHS BOTH EYES Last administered on 06/15/18 21:18; Admin Dose 1 DROP; Start 06/11/18 at 21:00 Levothyroxine Sodium (Synthroid) 50 mcg BEFORE BREAKFAST GTB Last administered on 06/16/18 05:55; Admin Dose 50 MCG; Start 06/12/18 at 07:00 Eye Lubricant (Artificial Tears Oph) 1 drop PRN PRN BOTH EYES DRY EYES; Start 06/11/18 at 17:30 Sirolimus (Rapamune) 1 mg QHS GTB Last administered on 06/15/18 21:17; Admin Dose 1 MG; Start 06/11/18 at 21:00 Tamsulosin HCl (Flomax) 0.4 mg DAILY PO Last administered on 06/16/18 09:17; Admin Dose 0.4 MG; Start 06/12/18 at 09:00 Tramadol HCl (Ultram) 50 mg Q6H PRN GTB PAIN LEVEL 4-7; Start 06/11/18 at 17:30 Hydralazine HCl (Apresoline) 10 mg Q4H PRN IV SBP>170 Last administered on at 12:59; Admin Dose 10 MG; Start 06/11/18 at 19:30 Metoprolol Tartrate (Lopressor) 5 mg Q4H PRN IV HR>110 HOld SBP<100 Last administered on 06/15/18 15:29; Admin Dose 5 MG; Start 06/11/18 at 19:30 Vancomycin HCl 250 ml @ 125 mls/hr Q24H IVPB Last administered on 06/16/18 04:13; Admin Dose 125 MLS/HR; Start 06/12/18 at 04:00 Acetylcysteine (Mucomyst) 2 ml Q6H RESP THERAPY NEB Last administered on 06/16/18 08:00; Admin Dose 2 ML; Start 06/12/18 at 02:00 Diltiazem HCl (Cardizem) 30 mg Q8 PO Last administered on 06/16/18 05:55; Admin Dose 30 MG; Start 06/14/18 at 14:00 Carvedilol (Coreg) 6.25 mg BID PO Last administered on 06/16/18 09:00; Admin Dose 6.25 MG; Start 06/15/18 at 10:00 Ondansetron HCl (Zofran Inj) 4 mg Q6H PRN IV NAUSEA AND/OR VOMITING Last administered on 06/15/18 16:11; Admin Dose 4 MG; Start 06/15/18 at 16:30 Dextrose/Sodium Chloride 1,000 ml @ 20 mls/hr Q24H IV Last administered on 06/15/18 18:12; Admin Dose 20 MLS/HR; Start 06/15/18 at 18:00 Metoprolol Tartrate (Lopressor) 25 mg DAILY GTB Last administered on 06/16/18 09:01; Admin Dose 25 MG; Start 06/16/18 at 09:00 DAVEY GUTIERREZ MD Jun 16, 2018 12:59
--- NOTE | 2018-06-16 13:22 | CONS ---
Assessment/Plan Assessment/Plan Hospital Course (Demo Recall) Awake, looks comfortable, no fevers overnight. Microbiology: Blood culture grew coag negative staph 1 out of 2 sets urine culture negative Chest x-ray revealed left basilar infiltrate and trace left pleural effusion Indwelling: PEG Antimicrobials: Vancomycin, cefepime Physical examination: This is a chronically ill-appearing wasted elderly man who is awake in no distress. Head atraumatic normocephalic sclera nonicteric vehicle mucosa dry neck is supple chest rise symmetrical breath sounds diminished bases. Heart: S1-S2. Abdomen soft bowel sounds present. Extremities without cyanosis edema. Assessment: 1. Healthcare associated pneumonia, possibly aspiration 2. Coag negative staph bacteremia, consistent with contaminant 3. Dysphasia 4. Hypertension 5. BPH 6. Atrial fibrillation, status post RVR Plan: Remains stable, continue antibiotics for pneumonia Consultation Date/Type/Reason Admit Date/Time Jun 11, 2018 at 09:53 Initial Consult Date Type of Consult id Requesting Provider: DAVEY GUTIERREZ MD Date/Time of Note DATE: 06/16/18 TIME: 13:20 Exam/Review of Systems Exam Vitals Vital Signs Date Temp Pulse Resp B/P (MAP) Pulse Ox O2 O2 Flow FiO2 Time Delivery Rate 06/16/18 97.8 73 22 101/57 96 Nasal 11:39 (72) Cannula 06/16/18 2.0 08:10 06/13/18 30 03:45 Intake and Output 06/15/18 06/15/18 06/16/18 1515:00 23:00 07:00 IntakeIntake Total 590 ml 200 ml BalanceBalance 590 ml 200 ml Results Result Diagram: 06/15/18 0521 06/16/18 0507 Results 24hrs Laboratory Tests Test 06/16/18 05:07 Sodium Level 142 Potassium Level 4.3 Chloride Level 98 Carbon Dioxide Level 36 H Anion Gap 8 Blood Urea Nitrogen 32 #H Creatinine 1.08 Est Glomerular Filtrat Rate mL/min Glucose Level 147 # Calcium Level 9.1 Total Bilirubin 0.8 Direct Bilirubin 0.00 Indirect Bilirubin 0.8 Aspartate Amino Transf (AST/SGOT) 30 Alanine Aminotransferase (ALT/SGPT) 30 Alkaline Phosphatase 77 Total Protein 6.9 Albumin 3.5 Globulin 3.40 H Albumin/Globulin Ratio 1.02 Lipase 234 Medications Medication Current Medications IV Flush (NS 3 ml) 3 ml PER PROTOCOL IV ; Start 4/12/19 at 17:30 Ondansetron HCl (Zofran Tab) 4 mg Q6H PRN PO NAUSEA/VOMITING; Start 06/11/18 at 17:30 Acetaminophen (Tylenol Tab) 650 mg Q6H PRN GTB .PAIN 1-3 OR TEMP; Start 06/11/18 at 17:30 Famotidine (Pepcid Iv) 20 mg DAILY IV Last administered on 06/16/18at 08:59; Admin Dose 20 MG; Start 06/11/18 at 21:00 Vancomycin HCl (Vanco Iv Per Pharmacy) VANCOMYCIN PER PHARMACY PER PROTOCOL XX ; Start 06/11/18 at 17:30 Cefepime HCl 50 ml @ 100 mls/hr Q24H IVPB Last administered on 06/16/18at 09:02; Admin Dose 100 MLS/HR; Start 06/11/18 at 09:00 Albuterol/ Ipratropium (Duoneb) 3 ml Q6H RESP THERAPY HHN Last administered on 06/16/18at 08:00; Admin Dose 3 ML; Start 06/11/18 at 20:00 Furosemide (Lasix) 20 mg DAILY IV Last administered on 06/16/18 09:00; Admin Dose 20 MG; Start 06/11/18 at 19:00 Apixaban (Eliquis) 2.5 mg BID PO Last administered on 06/16/18at 09:01; Admin Dose 2.5 MG; Start 06/11/18 at 21:00 Latanoprost (Xalatan) 1 drop QHS BOTH EYES Last administered on 06/15/18at 21:18; Admin Dose 1 DROP; Start 06/11/18 at 21:00 Levothyroxine Sodium (Synthroid) 50 mcg BEFORE BREAKFAST GTB Last administered on 06/16/18at 05:55; Admin Dose 50 MCG; Start 06/12/18 at 07:00 Eye Lubricant (Artificial Tears Oph) 1 drop PRN PRN BOTH EYES DRY EYES; Start 06/11/18 at 17:30 Sirolimus (Rapamune) 1 mg QHS GTB Last administered on 06/15/18at 21:17; Admin Dose 1 MG; Start 06/11/18 at 21:00 Tamsulosin HCl (Flomax) 0.4 mg DAILY PO Last administered on 06/16/18 09:17; Admin Dose 0.4 MG; Start 06/12/18 at 09:00 Tramadol HCl (Ultram) 50 mg Q6H PRN GTB PAIN LEVEL 4-7; Start 06/11/18 at 17:30 Hydralazine HCl (Apresoline) 10 mg Q4H PRN IV SBP>170 Last administered on 06/15/18 12:59; Admin Dose 10 MG; Start 06/11/18 at 19:30 Metoprolol Tartrate (Lopressor) 5 mg Q4H PRN IV HR>110 HOld SBP<100 Last administered on 06/15/18 15:29; Admin Dose 5 MG; Start 06/11/18 at 19:30 Vancomycin HCl 250 ml @ 125 mls/hr Q24H IVPB Last administered on 06/16/18 04:13; Admin Dose 125 MLS/HR; Start 06/12/18 at 04:00 Acetylcysteine (Mucomyst) 2 ml Q6H RESP THERAPY NEB Last administered on 06/16/18 08:00; Admin Dose 2 ML; Start 06/12/18 at 02:00 Diltiazem HCl (Cardizem) 30 mg Q8 PO Last administered on 06/16/18 05:55; Admin Dose 30 MG; Start 06/14/18 at 14:00 Carvedilol (Coreg) 6.25 mg BID PO Last administered on 06/16/18 09:00; Admin Dose 6.25 MG; Start 06/15/18 at 10:00 Ondansetron HCl (Zofran Inj) 4 mg Q6H PRN IV NAUSEA AND/OR VOMITING Last administered on 06/15/18 16:11; Admin Dose 4 MG; Start 06/15/18 at 16:30 Dextrose/Sodium Chloride 1,000 ml @ 20 mls/hr Q24H IV Last administered on 06/15/18 18:12; Admin Dose 20 MLS/HR; Start 06/15/18 at 18:00 Metoprolol Tartrate (Lopressor) 25 mg DAILY GTB Last administered on 06/16/18 09:01; Admin Dose 25 MG; Start 06/16/18 at 09:00 ALEE CASTAÑEDA NP Jun 16, 2018 13:22
--- NOTE | 2018-06-16 13:25 | CONS ---
Assessment/Plan Assessment/Plan Hospital Course (Demo Recall) IMPRESSION: 1. Atrial fibrillation with mild rapid ventricular response.-neg trop x 3. NL EF by echo. Had apparanet long pause. ? true. in chart not monitor. 2. Abnormal electrocardiogram with nonspecific ST abnormalities, assess for acute coronary syndrome. 3. Hypertension. 4. Shortness of breath with possible pneumonia by chest x-ray. 5. Elevated blood sugars. 6. Leukocytosis. 7. Hypothyroidism. 8. Benign prostatic hypertrophy. Recc: -Tele -serial ecg's -Continue lasix -Continue eliquis -Continue dilt/coreg and d/c second BB metoprolol. Follow HR/rhythm closely with PPM for recurrent sig pause/inability to control HR on low doses of grace agents. -s/p EP consult with PPM as absolutely necessary only and per conversation with son today patient states that he does not want PPM at this time and will discuss with him again. Consultation Date/Type/Reason Admit Date/Time Jun 11, 2018 at 09:53 Initial Consult Date 06/11/18 Type of Consult Cardiology Reason for Consultation AF Requesting Provider: DAVEY GUTIERREZ MD Date/Time of Note DATE: 06/16/18 TIME: 13:20 Exam/Review of Systems Vital Signs Vitals Vital Signs Date Temp Pulse Resp B/P (MAP) Pulse Ox O2 O2 Flow FiO2 Time Delivery Rate 06/16/18 97.8 73 22 101/57 96 Nasal 11:39 (72) Cannula 06/16/18 2.0 08:10 06/13/18 30 03:45 Intake and Output 06/15/18 06/15/18 06/16/18 1515:00 23:00 07:00 IntakeIntake Total 590 ml 200 ml BalanceBalance 590 ml 200 ml Exam Exam Review of Systems: CONSTITUTIONAL: No fevers, chills. PULMONARY: No sob CARDIOVASCULAR: No chest pain/palpitations GASTROINTESTINAL: No nausea/vomiting. GENITOURINARY: No hematuria/dysuria. MUSCULOSKELETAL: No myagias/arthalgias. PSYCHIATRIC: The patient denies depression. NEUROLOGIC: No weakness Constitutional: alert Psych: no complaints Head: normocephalic ENMT: mucosa pink and moist Neck: supple, jvd (9 cm water) Respiratory: diminished breath sounds (at bases/B) Cardiovascular: regular rate and rhythm Gastrointestinal: soft, non-tender Musculoskeletal: muscle weakness (generalized) Extremities: edema (trace/B) Labs Result Diagram: 06/15/18 0521 06/16/18 0507 Results 24hrs Laboratory Tests Test 06/16/18 05:07 Sodium Level 142 Potassium Level 4.3 Chloride Level 98 Carbon Dioxide Level 36 H Anion Gap 8 Blood Urea Nitrogen 32 #H Creatinine 1.08 Est Glomerular Filtrat Rate mL/min Glucose Level 147 # Calcium Level 9.1 Total Bilirubin 0.8 Direct Bilirubin 0.00 Indirect Bilirubin 0.8 Aspartate Amino Transf (AST/SGOT) 30 Alanine Aminotransferase (ALT/SGPT) 30 Alkaline Phosphatase 77 Total Protein 6.9 Albumin 3.5 Globulin 3.40 H Albumin/Globulin Ratio 1.02 Lipase 234 Medications Medications Current Medications IV Flush (NS 3 ml) 3 ml PER PROTOCOL IV ; Start 06/11/18 at 17:30 Ondansetron HCl (Zofran Tab) 4 mg Q6H PRN PO NAUSEA/VOMITING; Start 06/11/18 at 17:30 Acetaminophen (Tylenol Tab) 650 mg Q6H PRN GTB .PAIN 1-3 OR TEMP; Start 06/11/18 at 17:30 Famotidine (Pepcid Iv) 20 mg DAILY IV Last administered on 06/16/18at 08:59; Admin Dose 20 MG; Start 06/11/18 at 21:00 Vancomycin HCl (Vanco Iv Per Pharmacy) VANCOMYCIN PER PHARMACY PER PROTOCOL XX ; Start 06/11/18 at 17:30 Cefepime HCl 50 ml @ 100 mls/hr Q24H IVPB Last administered on 06/16/18at 09:02; Admin Dose 100 MLS/HR; Start 06/11/18 at 09:00 Albuterol/ Ipratropium (Duoneb) 3 ml Q6H RESP THERAPY HHN Last administered on 06/16/18at 08:00; Admin Dose 3 ML; Start 06/11/18 at 20:00 Furosemide (Lasix) 20 mg DAILY IV Last administered on 06/16/18at 09:00; Admin Dose 20 MG; Start 06/11/18 at 19:00 Apixaban (Eliquis) 2.5 mg BID PO Last administered on 06/16/18at 09:01; Admin Dose 2.5 MG; Start 06/11/18 at 21:00 Latanoprost (Xalatan) 1 drop QHS BOTH EYES Last administered on 06/15/18 21:18; Admin Dose 1 DROP; Start 06/11/18 at 21:00 Levothyroxine Sodium (Synthroid) 50 mcg BEFORE BREAKFAST GTB Last administered on 06/16/18 05:55; Admin Dose 50 MCG; Start 06/12/18 at 07:00 Eye Lubricant (Artificial Tears Oph) 1 drop PRN PRN BOTH EYES DRY EYES; Start 06/11/18 at 17:30 Sirolimus (Rapamune) 1 mg QHS GTB Last administered on 06/15/18 21:17; Admin Dose 1 MG; Start 06/11/18 at 21:00 Tamsulosin HCl (Flomax) 0.4 mg DAILY PO Last administered on 06/16/18 09:17; Admin Dose 0.4 MG; Start 06/12/18 at 09:00 Tramadol HCl (Ultram) 50 mg Q6H PRN GTB PAIN LEVEL 4-7; Start 06/11/18 at 17:30 Hydralazine HCl (Apresoline) 10 mg Q4H PRN IV SBP>170 Last administered on 06/15/18 12:59; Admin Dose 10 MG; Start 06/11/18 at 19:30 Metoprolol Tartrate (Lopressor) 5 mg Q4H PRN IV HR>110 HOld SBP<100 Last administered on 06/15/18 15:29; Admin Dose 5 MG; Start 06/11/18 at 19:30 Vancomycin HCl 250 ml @ 125 mls/hr Q24H IVPB Last administered on 06/16/18 04:13; Admin Dose 125 MLS/HR; Start 06/12/18 at 04:00 Acetylcysteine (Mucomyst) 2 ml Q6H RESP THERAPY NEB Last administered on 06/16/18 08:00; Admin Dose 2 ML; Start 06/12/18 at 02:00 Diltiazem HCl (Cardizem) 30 mg Q8 PO Last administered on 06/16/18 05:55; Admin Dose 30 MG; Start 06/14/18 at 14:00 Carvedilol (Coreg) 6.25 mg BID PO Last administered on 06/16/18 09:00; Admin Dose 6.25 MG; Start 06/15/18 at 10:00 Ondansetron HCl (Zofran Inj) 4 mg Q6H PRN IV NAUSEA AND/OR VOMITING Last ad ministered on 06/15/18at 16:11; Admin Dose 4 MG; Start 06/15/18 at 16:30 Dextrose/Sodium Chloride 1,000 ml @ 20 mls/hr Q24H IV Last administered on 06/15/18at 18:12; Admin Dose 20 MLS/HR; Start 06/15/18 at 18:00 Metoprolol Tartrate (Lopressor) 25 mg DAILY GTB Last administered on 06/16/18at 09:01; Admin Dose 25 MG; Start 06/16/18 at 09:00 RORY JANSEN Jun 16, 2018 13:25
--- NOTE | 2018-06-16 20:29 | CONS ---
DATE OF ADMISSION: 06/11/2018 DATE OF CONSULTATION: An 83-year-old male who has been having vomiting. The abdomen is now benign. Vomiting has stopped. Full report to follow. I discussed with the staff nurse. Dictated By: MATHEW ALFRED/NTS Conf#: [id number] DID#: [id number] CC: KENNY STOVER MD;*EndCC*
[2018-06-16] MEDS: SIROLIMUS 1 MG TAB GTB SCH (20:37)
[2018-06-16] MEDS: LATANOPROST 0.005% 2.5 ML OPH BOTH EYES SCH (20:42)
[2018-06-17] VITALS (12 sets, daily range): BP systolic 119–129; BP diastolic 60–75; PULSE 67–104; RESP 19–22
[2018-06-17] MEDS: ALBUTEROL/IPRATROPIUM (NEB) 3 ML AMP HHN SCH ×4 (02:16→19:41)
[2018-06-17] MEDS: ACETYLCYSTEINE 20% 4 ML VIAL NEB SCH ×4 (02:16→19:41)
[2018-06-17] MEDS: VANCOMYCIN 1 GM 250 ML IVPB SCH (04:21)
[2018-06-17] MEDS: LEVOTHYROXINE 50 MCG TAB GTB SCH (06:14)
[2018-06-17] MEDS: DILTIAZEM 30 MG TAB PO SCH ×3 (06:15→22:04)
--- NOTE | 2018-06-17 07:26 | CONS ---
Assessment/Plan Assessment/Plan Assessment/Plan (Daily) Sepsis syndrome Congestive heart failure Obstructive pulmonary disease Advanced age with hypoxic respiratory failure History of stroke with G-tube placement Patient is nonverbal and bedbound Will contact family members today first over the phone and address patient's CODE STATUS and then if necessary family conference patient is a candidate for hospice care. Consultation Date/Type/Reason Admit Date/Time Jun 11, 2018 at 09:53 Date/Time of Note DATE: 06/17/18 TIME: 07:25 Hx of Present Illness Patient chart reviewed in detail patient is non-historian. Patient is status post CVA 4 months ago since that time her condition has been declining approximately 2 weeks ago became short of breath transferred to [facility] septic treated aggressively transferred to [facility] and eventually transferred here to [facility] patient desaturated to his hospitalization on 80% was transferred to the [facility] white blood cell count was 11,000 BUN 35 creatinine 0.75 he was treated aggressively and admitted and IV antibiotics HHN blood pressure was controlled. Other chr onic medical problems including hypertension, hypothyroidism, debility bedbound. Continues to be symptomatic secondary to underlying congestive heart failure and chronic obstructive pulmonary disease and rapid atrial fibrillation.. History of stroke with G-tube placement hypothyroid hyper lipidemia patient is 83 years old and focal I am asked to speak to family members concerning ongoing level of care and CODE STATUS. Past Medical History Home Meds Reported Medications Tramadol HCl (Tramadol HCl) 50 Mg Tablet, 50 MG G-TUBE Q6H PRN for PAIN LEVEL 4- 7, #120 TAB 06/11/18 Tiotropium [place]* (Spiriva*) 18 Mcg Cap.w.dev, 1 CAP INHALATION DAILY, #30 CAP 06/11/18 Sotalol Hcl* (Betapace*) 80 Mg Tab, 40 MG G-TUBE BID, TAB 06/11/18 Sirolimus* (Rapamune*) 1 Mg Tablet, 1 MG G-TUBE QHS, TAB 06/11/18 Levothyroxine Sodium* (Levoxyl*) 50 Mcg Tablet, 50 MCG GTB BEFORE BREAKFAST, #30 TAB 06/11/18 Latanoprost (Latanoprost) 2.5 Ml Drops, 1 DROP BOTH EYES QHS, #1 BOTTLE 06/11/18 Guaifenesin* (Refenesen*) 400 Mg Tablet, 400 MG G-TUBE Q8H PRN for COUGH, TAB 06/11/18 Tamsulosin Hcl* (Tamsulosin Hcl*) 0.4 Mg Cap.er.24h, 0.4 MG G-TUBE DAILY, CAP 06/11/18 Polyvinyl Alcohol (Tears Again) 15 Ml Drops, 15 ML OP PRN PRN for DRY EYES, BOTTLE 06/11/18 Apixaban* (Eliquis*) 2.5 Mg Tablet, 2.5 MG PO BID, TAB 06/11/18 Amlodipine Besylate* (Amlodipine Besylate*) 10 Mg Tablet, 10 MG G-TUBE DAILY, #30 TAB 06/11/18 Acetaminophen* (Acetaminophen* Susp) 325 Mg/10.15 Ml Solution, 640 MG G-TUBE Q4H PRN for PAIN OR TEMP ABOVE 38C, ML 06/11/18 Medications Current Medications IV Flush (NS 3 ml) 3 ml PER PROTOCOL IV ; Start 06/11/18 at 17:30 Ondansetron HCl (Zofran Tab) 4 mg Q6H PRN PO NAUSEA/VOMITING; Start 06/11/18 at 17:30 Acetaminophen (Tylenol Tab) 650 mg Q6H PRN GTB .PAIN 1-3 OR TEMP; Start 06/11/18 at 17:30 Famotidine (Pepcid Iv) 20 mg DAILY IV Last administered on 06/16/18at 08:59; Admin Dose 20 MG; Start 06/11/18 at 21:00 Vancomycin HCl (Vanco Iv Per Pharmacy) VANCOMYCIN PER PHARMACY PER PROTOCOL XX ; Start 06/11/18 at 17:30 Cefepime HCl 50 ml @ 100 mls/hr Q24H IVPB Last administered on 06/16/18at 09:02; Admin Dose 100 MLS/HR; Start 06/11/18 at 09:00 Albuterol/ Ipratropium (Duoneb) 3 ml Q6H RESP THERAPY HHN Last administered on 06/17/18at 02:16; Admin Dose 3 ML; Start 06/11/18 at 20:00 Furosemide (Lasix) 20 mg DAILY IV Last administered on 06/16/18at 09:00; Admin Dose 20 MG; Start 06/11/18 at 19:00 Apixaban (Eliquis) 2.5 mg BID PO Last administered on 4/17/19at 20:38; Admin Dose 2.5 MG; Start 06/11/18 at 21:00 Latanoprost (Xalatan) 1 drop QHS BOTH EYES Last administered on 06/16/18 20:42; Admin Dose 1 DROP; Start 06/11/18 at 21:00 Levothyroxine Sodium (Synthroid) 50 mcg BEFORE BREAKFAST GTB Last administered on 06/17/18 06:14; Admin Dose 50 MCG; Start 06/12/18 at 07:00 Eye Lubricant (Artificial Tears Oph) 1 drop PRN PRN BOTH EYES DRY EYES; Start 06/11/18 at 17:30 Sirolimus (Rapamune) 1 mg QHS GTB Last administered on 06/16/18 20:37; Admin Dose 1 MG; Start 06/11/18 at 21:00 Tamsulosin HCl (Flomax) 0.4 mg DAILY PO Last administered on 06/16/18 09:17; Admin Dose 0.4 MG; Start 06/12/18 at 09:00 Tramadol HCl (Ultram) 50 mg Q6H PRN GTB PAIN LEVEL 4-7; Start 06/11/18 at 17:30 Hydralazine HCl (Apresoline) 10 mg Q4H PRN IV SBP>170 Last administered on 06/15/18 12:59; Admin Dose 10 MG; Start 06/11/18 at 19:30 Metoprolol Tartrate (Lopressor) 5 mg Q4H PRN IV HR>110 HOld SBP<100 Last administered on 06/15/18 15:29; Admin Dose 5 MG; Start 06/11/18 at 19:30 Vancomycin HCl 250 ml @ 125 mls/hr Q24H IVPB Last administered on 06/17/18 04:21; Admin Dose 125 MLS/HR; Start 06/12/18 at 04:00 Acetylcysteine (Mucomyst) 2 ml Q6H RESP THERAPY NEB Last administered on 06/17/18 02:16; Admin Dose 2 ML; Start 06/12/18 at 02:00 Diltiazem HCl (Cardizem) 30 mg Q8 PO Last administered on 06/17/18 06:15; Admin Dose 30 MG; Start 06/14/18 at 14:00 Carvedilol (Coreg) 6.25 mg BID PO Last administered on 06/16/18at 20:38; Admin Dose 6.25 MG; Start 06/15/18 at 10:00 Ondansetron HCl (Zofran Inj) 4 mg Q6H PRN IV NAUSEA AND/OR VOMITING Last administered on 06/15/18at 16:11; Admin Dose 4 MG; Start 06/15/18 at 16:30 Allergies: Coded Allergies: No Known Allergy (Unverified , 06/11/18) Social History Smoking Status: Never smoker Exam/Review of Systems Exam Vitals Vital Signs Date Temp Pulse Resp B/P (MAP) Pulse Ox O2 O2 Flow FiO2 Time Delivery Rate 06/17/18 98.6 91 22 126/67 96 04:11 (86) 06/17/18 2.0 02:23 06/17/18 Nasal 02:21 Cannula Intake and Output 06/16/18 06/16/18 06/17/18 1515:00 23:00 07:00 IntakeIntake Total 130 ml 700 ml 610 ml BalanceBalance 130 ml 700 ml 610 ml Results Result Diagram: 06/17/1852006/17/18 0521 Results 24hrs Laboratory Tests Test 06/17/18 05:21 White Blood Count 9.0 Red Blood Count 3.65 L Hemoglobin 11.3 L Hematocrit 37.5 L Mean Corpuscular Volume 102.7 H Mean Corpuscular Hemoglobin 31.0 Mean Corpuscular Hemoglobin Concent 30.1 L Red Cell Distribution Width 13.4 Platelet Count 140 Mean Platelet Volume 13.0 H Immature Granulocytes % 0.700 H Neutrophils % 78.4 H Lymphocytes % 8.7 L Monocytes % 10.6 Eosinophils % 1.4 Basophils % 0.2 Nucleated Red Blood Cells % 0.0 Immature Granulocytes # 0.060 H Neutrophils # 7.1 Lymphocytes # 0.8 Monocytes # 1.0 H Eosinophils # 0.1 Basophils # 0.0 Nucleated Red Blood Cells # 0.0 Sodium Level 142 Potassium Level 4.2 Chloride Level 101 Carbon Dioxide Level 38 H Anion Gap 3 L Blood Urea Nitrogen 39 H Creatinine 1.18 Est Glomerular Filtrat Rate mL/min Glucose Level 116 Calcium Level 9.3 Phosphorus Level 3.3 Magnesium Level 2.2 Medications Medication Current Medications IV Flush (NS 3 ml) 3 ml PER PROTOCOL IV ; Start 06/11/18 at 17:30 Ondansetron HCl (Zofran Tab) 4 mg Q6H PRN PO NAUSEA/VOMITING; Start 06/11/18 at 17:30 Acetaminophen (Tylenol Tab) 650 mg Q6H PRN GTB .PAIN 1-3 OR TEMP; Start 06/11/18 at 17:30 Famotidine (Pepcid Iv) 20 mg DAILY IV Last administered on 06/16/18 08:59; Admin Dose 20 MG; Start 06/11/18 at 21:00 Vancomycin HCl (Vanco Iv Per Pharmacy) VANCOMYCIN PER PHARMACY PER PROTOCOL XX ; Start 06/11/18 at 17:30 Cefepime HCl 50 ml @ 100 mls/hr Q24H IVPB Last administered on 06/16/18 09:02; Admin Dose 100 MLS/HR; Start 06/11/18 at 09:00 Albuterol/ Ipratropium (Duoneb) 3 ml Q6H RESP THERAPY HHN Last administered on 06/17/18 02:16; Admin Dose 3 ML; Start 06/11/18 at 20:00 Furosemide (Lasix) 20 mg DAILY IV Last administered on 06/16/18 09:00; Admin Dose 20 MG; Start 06/11/18 at 19:00 Apixaban (Eliquis) 2.5 mg BID PO Last administered on 06/16/18 20:38; Admin Dose 2.5 MG; Start 06/11/18 at 21:00 Latanoprost (Xalatan) 1 drop QHS BOTH EYES Last administered on 06/16/18 20:42; Admin Dose 1 DROP; Start 06/11/18 at 21:00 Levothyroxine Sodium (Synthroid) 50 mcg BEFORE BREAKFAST GTB Last administered on 06/17/18 06:14; Admin Dose 50 MCG; Start 06/12/18 at 07:00 Eye Lubricant (Artificial Tears Oph) 1 drop PRN PRN BOTH EYES DRY EYES; Start 06/11/18 at 17:30 Sirolimus (Rapamune) 1 mg QHS GTB Last administered on 06/16/18 20:37; Admin Dose 1 MG; Start 06/11/18 at 21:00 Tamsulosin HCl (Flomax) 0.4 mg DAILY PO Last administered on 06/16/18 09:17; Admin Dose 0.4 MG; Start 06/12/18 at 09:00 Tramadol HCl (Ultram) 50 mg Q6H PRN GTB PAIN LEVEL 4-7; Start 06/11/18 at 17:30 Hydralazine HCl (Apresoline) 10 mg Q4H PRN IV SBP>170 Last administered on 06/15/18 12:59; Admin Dose 10 MG; Start 06/11/18 at 19:30 Metoprolol Tartrate (Lopressor) 5 mg Q4H PRN IV HR>110 HOld SBP<100 Last administered on 06/15/18 15:29; Admin Dose 5 MG; Start 06/11/18 at 19:30 Vancomycin HCl 250 ml @ 125 mls/hr Q24H IVPB Last administered on 06/17/18 04:21; Admin Dose 125 MLS/HR; Start 06/12/18 at 04:00 Acetylcysteine (Mucomyst) 2 ml Q6H RESP THERAPY NEB Last administered on 06/17/18 02:16; Admin Dose 2 ML; Start 06/12/18 at 02:00 Diltiazem HCl (Cardizem) 30 mg Q8 PO Last administered on 06/17/18 06:15; Admin Dose 30 MG; Start 06/14/18 at 14:00 Carvedilol (Coreg) 6.25 mg BID PO Last administered on 06/16/18 20:38; Admin Dose 6.25 MG; Start 06/15/18 at 10:00 Ondansetron HCl (Zofran Inj) 4 mg Q6H PRN IV NAUSEA AND/OR VOMITING Last administered on 06/15/18 16:11; Admin Dose 4 MG; Start 06/15/18 at 16:30 MARGRET JAMESON Jun 17, 2018 07:26
[2018-06-17] MEDS: CEFEPIME 1GM/50 ML (PMX) 50 ML IVPB SCH (08:58)
[2018-06-17] MEDS: FAMOTIDINE 20 MG INJ IV SCH (08:59)
[2018-06-17] MEDS: APIXABAN 5 MG TABLET PO SCH ×2 (08:59→22:04)
[2018-06-17] MEDS: TAMSULOSIN (SR) 0.4 MG CAP PO SCH (09:00)
[2018-06-17] MEDS: FUROSEMIDE 20 MG INJ IV SCH (11:03)
--- NOTE | 2018-06-17 12:26 | CONS ---
Assessment/Plan Assessment/Plan Hospital Course (Demo Recall) All noted, no acute changes Microbiology: Blood culture grew coag negative staph 1 out of 2 sets urine culture negative Chest x-ray revealed left basilar infiltrate and trace left pleural effusion Indwelling: PEG Antimicrobials: Vancomycin, cefepime Physical examination: This is a chronically ill-appearing wasted elderly man who is awake in no distress. Head atraumatic normocephalic sclera nonicteric vehicle mucosa dry neck is supple chest rise symmetrical breath sounds diminished bases. Heart: S1-S2. Abdomen soft bowel sounds present. Extremities without cyanosis edema. Assessment: 1. Healthcare associated pneumonia, possibly aspiration 2. Coag negative staph bacteremia, consistent with contaminant 3. Dysphasia 4. Hypertension 5. BPH 6. Atrial fibrillation, status post RVR Plan: Remains stable, continue antibiotics, aspiration precautions, GI rec-s noted Consultation Date/Type/Reason Admit Date/Time Jun 11, 2018 at 09:53 Initial Consult Date Type of Consult id Requesting Provider: DAVEY GUTIERREZ MD Date/Time of Note DATE: 06/17/18 TIME: 12:26 Exam/Review of Systems Exam Vitals Vital Signs Date Temp Pulse Resp B/P (MAP) Pulse Ox O2 O2 Flow FiO2 Time Delivery Rate 06/17/18 98.2 80 19 121/64 96 11:18 (83) 06/17/18 Nasal 2.0 08:36 Cannula Intake and Output 06/16/18 06/16/18 06/17/18 1515:00 23:00 07:00 IntakeIntake Total 130 ml 700 ml 610 ml BalanceBalance 130 ml 700 ml 610 ml Results Result Diagram: 06/17/1852006/17/18 0521 Results 24hrs Laboratory Tests Test 06/17/18 05:21 White Blood Count 9.0 Red Blood Count 3.65 L Hemoglobin 11.3 L Hematocrit 37.5 L Mean Corpuscular Volume 102.7 H Mean Corpuscular Hemoglobin 31.0 Mean Corpuscular Hemoglobin Concent 30.1 L Red Cell Distribution Width 13.4 Platelet Count 140 Mean Platelet Volume 13.0 H Immature Granulocytes % 0.700 H Neutrophils % 78.4 H Lymphocytes % 8.7 L Monocytes % 10.6 Eosinophils % 1.4 Basophils % 0.2 Nucleated Red Blood Cells % 0.0 Immature Granulocytes # 0.060 H Neutrophils # 7.1 Lymphocytes # 0.8 Monocytes # 1.0 H Eosinophils # 0.1 Basophils # 0.0 Nucleated Red Blood Cells # 0.0 Sodium Level 142 Potassium Level 4.2 Chloride Level 101 Carbon Dioxide Level 38 H Anion Gap 3 L Blood Urea Nitrogen 39 H Creatinine 1.18 Est Glomerular Filtrat Rate mL/min Glucose Level 116 Calcium Level 9.3 Phosphorus Level 3.3 Magnesium Level 2.2 Medications Medication Current Medications IV Flush (NS 3 ml) 3 ml PER PROTOCOL IV ; Start 06/11/18 at 17:30 Ondansetron HCl (Zofran Tab) 4 mg Q6H PRN PO NAUSEA/VOMITING; Start 06/11/18 at 17:30 Acetaminophen (Tylenol Tab) 650 mg Q6H PRN GTB .PAIN 1-3 OR TEMP; Start 06/11/18 at 17:30 Famotidine (Pepcid Iv) 20 mg DAILY IV Last administered on 06/17/18 08:59; Admin Dose 20 MG; Start 06/11/18 at 21:00 Vancomycin HCl (Vanco Iv Per Pharmacy) VANCOMYCIN PER PHARMACY PER PROTOCOL XX ; Start 06/11/18 at 17:30 Cefepime HCl 50 ml @ 100 mls/hr Q24H IVPB Last administered on 06/17/18 08:58; Admin Dose 100 MLS/HR; Start 06/11/18 at 09:00 Albuterol/ Ipratropium (Duoneb) 3 ml Q6H RESP THERAPY HHN Last administered on 06/17/18 08:26; Admin Dose 3 ML; Start 06/11/18 at 20:00 Furosemide (Lasix) 20 mg DAILY IV Last administered on 06/17/18 11:03; Admin Dose 20 MG; Start 06/11/18 at 19:00 Apixaban (Eliquis) 2.5 mg BID PO Last administered on 06/17/18 08:59; Admin Dose 2.5 MG; Start 06/11/18 at 21:00 Latanoprost (Xalatan) 1 drop QHS BOTH EYES Last administered on 06/16/18 20:42; Admin Dose 1 DROP; Start 06/11/18 at 21:00 Levothyroxine Sodium (Synthroid) 50 mcg BEFORE BREAKFAST GTB Last administered on 06/17/18 06:14; Admin Dose 50 MCG; Start 06/12/18 at 07:00 Eye Lubricant (Artificial Tears Oph) 1 drop PRN PRN BOTH EYES DRY EYES; Start 06/11/18 at 17:30 Sirolimus (Rapamune) 1 mg QHS GTB Last administered on 06/16/18 20:37; Admin Dose 1 MG; Start 06/11/18 at 21:00 Tamsulosin HCl (Flomax) 0.4 mg DAILY PO Last administered on 06/17/18 09:00; Admin Dose 0.4 MG; Start 06/12/18 at 09:00 Tramadol HCl (Ultram) 50 mg Q6H PRN GTB PAIN LEVEL 4-7; Start 06/11/18 at 17:30 Hydralazine HCl (Apresoline) 10 mg Q4H PRN IV SBP>170 Last administered on 12:59; Admin Dose 10 MG; Start 06/11/18 at 19:30 Metoprolol Tartrate (Lopressor) 5 mg Q4H PRN IV HR>110 HOld SBP<100 Last administered on 06/15/18 15:29; Admin Dose 5 MG; Start 06/11/18 at 19:30 Vancomycin HCl 250 ml @ 125 mls/hr Q24H IVPB Last administered on 06/17/18 04:21; Admin Dose 125 MLS/HR; Start 06/12/18 at 04:00; Status Hold Acetylcysteine (Mucomyst) 2 ml Q6H RESP THERAPY NEB Last administered on 06/17/18 08:26; Admin Dose 2 ML; Start 06/12/18 at 02:00 Diltiazem HCl (Cardizem) 30 mg Q8 PO Last administered on 06/17/18 06:15; Admin Dose 30 MG; Start 06/14/18 at 14:00 Carvedilol (Coreg) 6.25 mg BID PO Last administered on 06/17/18 09:01; Admin Dose 6.25 MG; Start 06/15/18 at 10:00 Ondansetron HCl (Zofran Inj) 4 mg Q6H PRN IV NAUSEA AND/OR VOMITING Last administered on 06/15/18 16:11; Admin Dose 4 MG; Start 06/15/18 at 16:30 Miscellaneous Information (*Rx Drug Level Order Reminder*) 1 0300 ONCE XX ; Start 06/18/18 at 03:00; Stop 06/18/18 at 03:01 ALEE CASTAÑEDA NP Jun 17, 2018 12:26
[2018-06-17] MEDS ORDERED: BARIUM SULFATE 135 ML (E-Z HD) PO ONE (13:24)
--- NOTE | 2018-06-17 15:28 | PN ---
Date/Time of Note Date/Time of Note DATE: 06/17/18 TIME: 15:27 Assessment/Plan VTE Prophylaxis Risk score (from Ns)>0 risk: 8 SCD applied (from [facility] [place] [facility]): No SCD contraindicated: low risk/ambulating Pharmacological prophylaxis: NA/contraindicated Pharm contraindication: low risk/ambulating Lines/Catheters IV Catheter Type (from [facility] Saline Lock Urinary Cath still in place: Yes Reason Cath still needed: urinary retention Assessment/Plan Hospital Course 83 y.o with 1. Shortness of breath, could be secondary to underlying congestive heart failure, chronic obstructive pulmonary disease, also rule out aspiration. X-ray shows pneumonia [facility] 2. Chronic atrial fibrillation, was in rapid ventricular response on admission, and sotalol was on hold secondary to pauses however restarted back again by cardiology 3. Sepsis, Bl. Cul. are positive. Fevers. UA negative. Chest Xray +pneumonia culture positive for staph repeat blood cultures have been negative questionable contaminant 4. Hypoxic respiratory failure. 5. Hypertension. 6. Status post donor renal transplantation. There are numerous 7. History of stroke with G-tube placement. With weakness 8. Hypothyroidism. 9. Hyperlipidemia. 10. G-tube placement. 11. Chronic bedbound status. Assessment/Plan -Started back on diltiazem COREG per cards, no more pauses family had been refusing pacemaker in the past also -Dr. Rowell to see the patient tomorrow -Continue with cefepime -Repeat cultures negative - nebs around the clock. -Continue with sirolimus -Aspiration precautions. -c.w Gentle Lasix. -f/up cardiology consultation -GI prophylaxis Famotidine GT BID -DVT prophylaxis Eliquis BID -video swallow per OT later , PT eval per son patient had been doing physical therapy at the longterm Result Diagram: 06/17/18 0521 06/17/18 0521 Results 24hrs Laboratory Tests Test 06/17/18 05:21 White Blood Count 9.0 Red Blood Count 3.65 L Hemoglobin 11.3 L Hematocrit 37.5 L Mean Corpuscular Volume 102.7 H Mean Corpuscular Hemoglobin 31.0 Mean Corpuscular Hemoglobin Concent 30.1 L Red Cell Distribution Width 13.4 Platelet Count 140 Mean Platelet Volume 13.0 H Immature Granulocytes % 0.700 H Neutrophils % 78.4 H Lymphocytes % 8.7 L Monocytes % 10.6 Eosinophils % 1.4 Basophils % 0.2 Nucleated Red Blood Cells % 0.0 Immature Granulocytes # 0.060 H Neutrophils # 7.1 Lymphocytes # 0.8 Monocytes # 1.0 H Eosinophils # 0.1 Basophils # 0.0 Nucleated Red Blood Cells # 0.0 Sodium Level 142 Potassium Level 4.2 Chloride Level 101 Carbon Dioxide Level 38 H Anion Gap 3 L Blood Urea Nitrogen 39 H Creatinine 1.18 Est Glomerular Filtrat Rate mL/min Glucose Level 116 Calcium Level 9.3 Phosphorus Level 3.3 Magnesium Level 2.2 Subjective 24 Hr Interval Summary Free Text/Dictation No acute events. Palliative care meeting tomorrow Exam/Review of Systems Exam Vitals Vital Signs Date Temp Pulse Resp B/P (MAP) Pulse Ox O2 O2 Flow FiO2 Time Delivery Rate 06/17/18 98.2 91 19 119/66 97 15:08 (83) 06/17/18 Nasal 2.0 13:40 Cannula Intake and Output 06/16/18 06/16/18 06/17/18 1515:00 23:00 07:00 IntakeIntake Total 130 ml 700 ml 610 ml BalanceBalance 130 ml 700 ml 610 ml Exam arm av fistula Constitutional: alert, oriented (name) Eyes: nl conjunctiva Neck: supple Respiratory: diminished breath sounds irrgeular irregular Gastrointestinal: soft, other (GT) Musculoskeletal: muscle weakness Results Results 24hrs Laboratory Tests Test 06/17/18 05:21 White Blood Count 9.0 Red Blood Count 3.65 L Hemoglobin 11.3 L Hematocrit 37.5 L Mean Corpuscular Volume 102.7 H Mean Corpuscular Hemoglobin 31.0 Mean Corpuscular Hemoglobin Concent 30.1 L Red Cell Distribution Width 13.4 Platelet Count 140 Mean Platelet Volume 13.0 H Immature Granulocytes % 0.700 H Neutrophils % 78.4 H Lymphocytes % 8.7 L Monocytes % 10.6 Eosinophils % 1.4 Basophils % 0.2 Nucleated Red Blood Cells % 0.0 Immature Granulocytes # 0.060 H Neutrophils # 7.1 Lymphocytes # 0.8 Monocytes # 1.0 H Eosinophils # 0.1 Basophils # 0.0 Nucleated Red Blood Cells # 0.0 Sodium Level 142 Potassium Level 4.2 Chloride Level 101 Carbon Dioxide Level 38 H Anion Gap 3 L Blood Urea Nitrogen 39 H Creatinine 1.18 Est Glomerular Filtrat Rate mL/min Glucose Level 116 Calcium Level 9.3 Phosphorus Level 3.3 Magnesium Level 2.2 Medications Medication Current Medications IV Flush (NS 3 ml) 3 ml PER PROTOCOL IV ; Start 06/11/18 at 17:30 Ondansetron HCl (Zofran Tab) 4 mg Q6H PRN PO NAUSEA/VOMITING; Start 06/11/18 at 17:30 Acetaminophen (Tylenol Tab) 650 mg Q6H PRN GTB .PAIN 1-3 OR TEMP; Start 06/11/18 at 17:30 Famotidine (Pepcid Iv) 20 mg DAILY IV Last administered on 06/17/18 08:59; Admin Dose 20 MG; Start 06/11/18 at 21:00 Vancomycin HCl (Vanco Iv Per Pharmacy) VANCOMYCIN PER PHARMACY PER PROTOCOL XX ; Start 06/11/18 at 17:30 Cefepime HCl 50 ml @ 100 mls/hr Q24H IVPB Last administered on 06/17/18 08:58; Admin Dose 100 MLS/HR; Start 06/11/18 at 09:00 Albuterol/ Ipratropium (Duoneb) 3 ml Q6H RESP THERAPY HHN Last administered on 06/17/18 13:32; Admin Dose 3 ML; Start 06/11/18 at 20:00 Furosemide (Lasix) 20 mg DAILY IV Last administered on 06/17/18 11:03; Admin Dose 20 MG; Start 06/11/18 at 19:00 Apixaban (Eliquis) 2.5 mg BID PO Last administered on 06/17/18 08:59; Admin Dose 2.5 MG; Start 06/11/18 at 21:00 Latanoprost (Xalatan) 1 drop QHS BOTH EYES Last administered on 06/16/18 20:42; Admin Dose 1 DROP; Start 06/11/18 at 21:00 Levothyroxine Sodium (Synthroid) 50 mcg BEFORE BREAKFAST GTB Last administered on 06/17/18 06:14; Admin Dose 50 MCG; Start 06/12/18 at 07:00 Eye Lubricant (Artificial Tears Oph) 1 drop PRN PRN BOTH EYES DRY EYES; Start 06/11/18 at 17:30 Sirolimus (Rapamune) 1 mg QHS GTB Last administered on 06/16/18 20:37; Admin Dose 1 MG; Start 06/11/18 at 21:00 Tamsulosin HCl (Flomax) 0.4 mg DAILY PO Last administered on 06/17/18 09:00; Admin Dose 0.4 MG; Start 06/12/18 at 09:00 Tramadol HCl (Ultram) 50 mg Q6H PRN GTB PAIN LEVEL 4-7; Start 06/11/18 at 17:30 Hydralazine HCl (Apresoline) 10 mg Q4H PRN IV SBP>170 Last administered on 06/15/18 12:59; Admin Dose 10 MG; Start 06/11/18 at 19:30 Metoprolol Tartrate (Lopressor) 5 mg Q4H PRN IV HR>110 HOld SBP<100 Last administered on 06/15/18 15:29; Admin Dose 5 MG; Start 06/11/18 at 19:30 Vancomycin HCl 250 ml @ 125 mls/hr Q24H IVPB Last administered on 06/17/18 04:21; Admin Dose 125 MLS/HR; Start 06/12/18 at 04:00; Status Hold Acetylcysteine (Mucomyst) 2 ml Q6H RESP THERAPY NEB Last administered on 06/17/18 13:32; Admin Dose 2 ML; Start 06/12/18 at 02:00 Diltiazem HCl (Cardizem) 30 mg Q8 PO Last administered on 06/17/18 06:15; Admin Dose 30 MG; Start 06/14/18 at 14:00 Carvedilol (Coreg) 6.25 mg BID PO Last administered on 06/17/18 09:01; Admin Dose 6.25 MG; Start 06/15/18 at 10:00 Ondansetron HCl (Zofran Inj) 4 mg Q6H PRN IV NAUSEA AND/OR VOMITING Last administered on 06/15/18 16:11; Admin Dose 4 MG; Start 06/15/18 at 16:30 Miscellaneous Information (*Rx Drug Level Order Reminder*) 1 0300 ONCE XX ; Start 06/18/18 at 03:00; Stop 06/18/18 at 03:01 DAVEY GUTIERREZ MD Jun 17, 2018 15:28
--- NOTE | 2018-06-17 19:40 | CONS ---
DATE OF ADMISSION: 06/11/2018 DATE OF CONSULTATION: TYPE OF CONSULTATION: Gastroenterology. From Mathew Bland MD, to Criselda Gutierrez MD HISTORY OF PRESENT ILLNESS: An 83-year-old male with history of nephrectomy, atrial fibrillation, hy pothyroidism, BPH, COPD, CVA, chronic hypoxemia, was admitted to the hospital for shortness of breath . The patient was found to have a pneumonia, started on appropriate antibiotic. This was at [facility]. The patient was subsequently transferred to [facility] for p ossible aspiration pneumonia. During his stay in the hospital, he was tolerating feeding but when he started vomiting yesterday, GI consult was called in. Not much information could be obtained from t he patient. PAST MEDICAL HISTORY: Chronic atrial fibrillation, status post DDRT years ago on sirolimus, hyperten leatha, hypothyroidism, CVA, bedridden, BPH. ALLERGIES: NONE. PAST SURGICAL HISTORY: G-tube, thyroidectomy, left arm fistula, spine surgery. MEDICATIONS: All reviewed. He is also on Eliquis. FAMILY HISTORY: Nothing contributory. REVIEW OF SYSTEMS: Unable to do it. PHYSICAL EXAMINATION: GENERAL: The patient is lethargic. VITAL SIGNS: Stable. HEENT: Unremarkable. NECK: Supple. No thyromegaly, no lymphadenopathy. CARDIOVASCULAR: No murmur, gallop or click. LUNGS: Rhonchi at bases. ABDOMEN: Soft. G-tube is in place. We started feeding at 30 mL per hour, which he is tolerating. LABORATORY DATA: Reviewed. His hematocrit is 37, WBC is within normal limits. BUN is 39, creatinin e is 1.18. Liver function tests all within normal limits. DIAGNOSTIC DATA: He had x-ray abdomen done which shows no evidence of obstruction. IMPRESSION: 1. Vomiting, which has subsided now. 2. Cerebrovascular accident. 3. Atrial fibrillation. 4. Sepsis. 5. Hypoxic respiratory failure. 6. Hypertension. 7. Status post -donor renal transplant. 8. Status post PEG. 9. Hypothyroidism. PLAN: To continue present care. Swallow study has been ordered. Aspiration precaution and if the p atient starts vomiting, then we will place him on Reglan. Dictated By: MATHEW ALFRED/JULIOCESAR Conf#: [id number] DID#: [id number] CC: NAVID GARCIA MD; RORY JANSEN MD; CRISELDA GUTIERREZ; KENNY STOVER MD;*[facility]*
[2018-06-17] MEDS: LATANOPROST 0.005% 2.5 ML OPH BOTH EYES SCH (21:00)
[2018-06-17] MEDS: SIROLIMUS 1 MG TAB GTB SCH (22:03)
[2018-06-18] VITALS (11 sets, daily range): BP systolic 98–127; BP diastolic 58–72; PULSE 63–96; RESP 18–19
[2018-06-18] MEDS: ACETYLCYSTEINE 20% 4 ML VIAL NEB SCH ×4 (02:55→20:00)
[2018-06-18] MEDS: ALBUTEROL/IPRATROPIUM (NEB) 3 ML AMP HHN SCH ×4 (02:55→20:00)
[2018-06-18] MEDS: DILTIAZEM 30 MG TAB PO SCH ×2 (06:00→14:00)
[2018-06-18] MEDS: LEVOTHYROXINE 50 MCG TAB GTB SCH (07:01)
[2018-06-18] MEDS: TAMSULOSIN (SR) 0.4 MG CAP PO SCH (08:42)
[2018-06-18] MEDS: FAMOTIDINE 20 MG INJ IV SCH (08:42)
[2018-06-18] MEDS: APIXABAN 5 MG TABLET PO SCH (08:42)
[2018-06-18] MEDS: FUROSEMIDE 20 MG INJ IV SCH (08:43)
[2018-06-18] MEDS: CEFEPIME 1GM/50 ML (PMX) 50 ML IVPB SCH (08:43)
[2018-06-18] MEDS ORDERED: VANCOMYCIN 750 MG (PMX) 250 ML IVPB SCH (10:00)
--- NOTE | 2018-06-18 10:53 | CONS ---
Assessment/Plan Assessment/Plan Assessment/Plan (Daily) IMPRESSION: 1. Vomiting, which has subsided now. 2. Cerebrovascular accident. 3. Atrial fibrillation. 4. Sepsis. 5. Hypoxic respiratory failure. 6. Hypertension. 7. Status post -donor renal transplant. 8. Status post PEG. 9. Hypothyroidism. 10. Encephalopathy much better Plan Continue present care Increase feeding Swallow eval Consultation Date/Type/Reason Admit Date/Time Jun 11, 2018 at 09:53 Initial Consult Date Requesting Provider: DAVEY GUTIERREZ MD Date/Time of Note DATE: 06/18/18 TIME: 10:52 24 HR Interval Summary Constitutional: improved Exam/Review of Systems Exam Vitals Vital Signs Date Temp Pulse Resp B/P (MAP) Pulse Ox O2 O2 Flow FiO2 Time Delivery Rate 06/18/18 70 08:13 06/18/18 Nasal 2.0 08:00 Cannula 06/18/18 98.0 18 113/61 98 07:35 (78) Intake and Output 06/17/18 06/17/18 06/18/18 1515:00 23:00 07:00 IntakeIntake Total 340 ml 250 ml 510 ml OutputOutput Total 900 ml 300 ml BalanceBalance 340 ml -650 ml 210 ml Psych: no complaints Head: atraumatic Eyes: nl lids Neck: jvd Results Result Diagram: 06/17/1852006/17/18520 Results 24hrs Laboratory Tests Test 06/18/18 02:47 Vancomycin Level Trough 20.9 *H Medications Medication Current Medications IV Flush (NS 3 ml) 3 ml PER PROTOCOL IV ; Start 06/11/18 at 17:30 Ondansetron HCl (Zofran Tab) 4 mg Q6H PRN PO NAUSEA/VOMITING; Start 06/11/18 at 17:30 Acetaminophen (Tylenol Tab) 650 mg Q6H PRN GTB .PAIN 1-3 OR TEMP; Start 06/11/18 at 17:30 Famotidine (Pepcid Iv) 20 mg DAILY IV Last administered on 06/18/18at 08:42; Admin Dose 20 MG; Start 06/11/18 at 21:00 Vancomycin HCl (Vanco Iv Per Pharmacy) VANCOMYCIN PER PHARMACY PER PROTOCOL XX ; Start 06/11/18 at 17:30 Cefepime HCl 50 ml @ 100 mls/hr Q24H IVPB Last administered on 06/18/18 08:43 ; Admin Dose 100 MLS/HR; Start 06/11/18 at 09:00 Albuterol/ Ipratropium (Duoneb) 3 ml Q6H RESP THERAPY HHN Last administered on 06/18/18 07:29; Admin Dose 3 ML; Start 06/11/18 at 20:00 Furosemide (Lasix) 20 mg DAILY IV Last administered on 06/18/18 08:43; Admin Dose 20 MG; Start 06/11/18 at 19:00 Apixaban (Eliquis) 2.5 mg BID PO Last administered on 06/18/18 08:42; Admin Dose 2.5 MG; Start 06/11/18 at 21:00 Latanoprost (Xalatan) 1 drop QHS BOTH EYES Last administered on 06/17/18 21:00; Admin Dose 1 DROP; Start 06/11/18 at 21:00 Levothyroxine Sodium (Synthroid) 50 mcg BEFORE BREAKFAST GTB Last administered on 06/18/18 07:01; Admin Dose 50 MCG; Start 06/12/18 at 07:00 Eye Lubricant (Artificial Tears Oph) 1 drop PRN PRN BOTH EYES DRY EYES; Start 06/11/18 at 17:30 Sirolimus (Rapamune) 1 mg QHS GTB Last administered on 06/17/18 22:03; Admin Dose 1 MG; Start 06/11/18 at 21:00 Tamsulosin HCl (Flomax) 0.4 mg DAILY PO Last administered on 06/18/18 08:42; Admin Dose 0.4 MG; Start 06/12/18 at 09:00 Tramadol HCl (Ultram) 50 mg Q6H PRN GTB PAIN LEVEL 4-7 Last administered on 05/31 22:11; Admin Dose 50 MG; Start 06/11/18 at 17:30 Hydralazine HCl (Apresoline) 10 mg Q4H PRN IV SBP>170 Last administered on 06/15/18 12:59; Admin Dose 10 MG; Start 06/11/18 at 19:30 Metoprolol Tartrate (Lopressor) 5 mg Q4H PRN IV HR>110 HOld SBP<100 Last administered on 06/15/18 15:29; Admin Dose 5 MG; Start 06/11/18 at 19:30 Acetylcysteine (Mucomyst) 2 ml Q6H RESP THERAPY NEB Last administered on 06/18/18at 07:30; Admin Dose 2 ML; Start 06/12/18 at 02:00 Diltiazem HCl (Cardizem) 30 mg Q8 PO Last administered on 06/18/18at 06:00; Admin Dose 30 MG; Start 06/14/18 at 14:00 Carvedilol (Coreg) 6.25 mg BID PO Last administered on 06/18/18at 08:43; Admin Dose 6.25 MG; Start 06/15/18 at 10:00 Ondansetron HCl (Zofran Inj) 4 mg Q6H PRN IV NAUSEA AND/OR VOMITING Last administered on 06/15/18at 16:11; Admin Dose 4 MG; Start 06/15/18 at 16:30 Vancomycin HCl 250 ml @ 125 mls/hr Q36H IVPB ; Start 06/18/18 at 16:00 MATHEW MCCOY MD Jun 18, 2018 10:53
--- NOTE | 2018-06-18 11:07 | DS ---
Date/Time of Note Date/Time of Note DATE: 06/18/18 TIME: 11:07 Discharge Summary Admission/Discharge Info Admit Date/Time Jun 11, 2018 at 09:53 Discharge Date/Time Patient Condition: Stable Consults Dr. Cerrato, cardiology, Dr Torres, ID, dr Pena, palliative care, dr Bland, Hospital Course This is an 83-year-old male with a past medical history of kidney stones, status post nephrectomy, was on dialysis, status post DDRT 9 years ago on sirolimus, history of hypertension, AFib, hypothyroidism, BPH, COPD , history of recent CVA 4 months ago, chronic hypoxia requiring oxygen, G-tube placement, who was transferred to [facility] secondary to shortness of breath. History is obtained from the son, as the patient is a poor historian. According to him 4 months ago, the patient had a stroke. The patient's condition had been declining. The patient was in [place] almost 2 weeks ago where the patient was short of breath, was found to be in sepsis, was transferred and was thought to have pneumonia, was treated there with IV antibiotics and then was transferred to [facility]. After the patient stayed in the [facility] for 2 days, the patient was sent to [facility]. The patient was seen in the [facility]. According to the son, the patient was also started on some feeding. According to the son, the other brother had been feeding the father and he feels that probably the patient could have aspirated. The patient's facility called the family today and told the patient is short of breath and congested. O2 sats were only 80% and was transferred to [facility]. On admission, vital signs show temperature 99.6, initial heart rate 150, respiratory rate 30, blood pressure 145/71, saturating 98% on 6 liters. White count was 11.1, BUN of 35, creatinine 0.75, glucose was 233. The patient was given vancomycin, cefepime, albuterol, Atrovent, diltiazem, NS and was admitted for further management. Chest x-ray showed postsurgical changes, left upper thorax, left basilar atelectasis, cardiomegaly with calcified aorta. Admission Ds: 1. Shortness of breath, could be secondary to underlying congestive heart failure, chronic obstructive pulmonary disease, also rule out aspiration. 2. Chronic atrial fibrillation, was in rapid ventricular response on admission, currently controlled. 3. Sepsis, Bl. Cul. are positive. Fevers. UA negative. Chest Xray neg. for pneumonia, will repeat 4. Hypoxic respiratory failure. 5. Hypertension. 6. Status post donor renal transplantation. 7. History of stroke with G-tube placement. 8. Hypothyroidism. 9. Hyperlipidemia. 10. G-tube placement. 11. Chronic bedbound status. Pt was monitored on telemetry service,there were serial ecg's done, pt afib was controlled and Dr Cerrato, pt cardiology continued lasix to manage CHF. Pt was continued on eliquis for A.fib. Pt rhytm showed prolong pauses and dr Cerrato offered pt a pacemaker. Pt son refused. Pt was switched to diltiazem/coreg and metoprolol was discontinued. For pneumonia dr Torres managed pt on Vanco and Cefipime , after discharged IV ab required for [address] Rowell, palliative care approached pt and they had family conference regarding the code status. The results are unknown to me. We received repeat cultures negative and transfer pt to facility after overall improvement. Pt tube feeding was continued, his oral gratifications are on hold due to weakness, but swallow eval. pt passed. Dr Bland was called due to pt vomiting. It stopped and pt was c/w tube feeding. In SNF pt would be continued on nebs around the clock. For his transplant it is important to continue with sirolimus. Aspiration precautions should be in place and we kept pt HOB 30 degrees. Home Meds Reported Medications Tramadol HCl (Tramadol HCl) 50 Mg Tablet, 50 MG G-TUBE Q6H PRN for PAIN LEVEL 4- 7, #120 TAB 06/11/18 Tiotropium [place]* (Spiriva*) 18 Mcg Cap.w.dev, 1 CAP INHALATION DAILY, #30 CAP 06/11/18 Sotalol Hcl* (Betapace*) 80 Mg Tab, 40 MG G-TUBE BID, TAB 06/11/18 Sirolimus* (Rapamune*) 1 Mg Tablet, 1 MG G-TUBE QHS, TAB 06/11/18 Levothyroxine Sodium* (Levoxyl*) 50 Mcg Tablet, 50 MCG GTB BEFORE BREAKFAST, #30 TAB 06/11/18 Latanoprost (Latanoprost) 2.5 Ml Drops, 1 DROP BOTH EYES QHS, #1 BOTTLE 06/11/18 Guaifenesin* (Refenesen*) 400 Mg Tablet, 400 MG G-TUBE Q8H PRN for COUGH, TAB 06/11/18 Tamsulosin Hcl* (Tamsulosin Hcl*) 0.4 Mg Cap.er.24h, 0.4 MG G-TUBE DAILY, CAP 06/11/18 Polyvinyl Alcohol (Tears Again) 15 Ml Drops, 15 ML OP PRN PRN for DRY EYES, BOTTLE 06/11/18 Apixaban* (Eliquis*) 2.5 Mg Tablet, 2.5 MG PO BID, TAB 06/11/18 Amlodipine Besylate* (Amlodipine Besylate*) 10 Mg Tablet, 10 MG G-TUBE DAILY, #30 TAB 06/11/18 Acetaminophen* (Acetaminophen* Susp) 325 Mg/10.15 Ml Solution, 640 MG G-TUBE Q4H PRN for PAIN OR TEMP ABOVE 38C, ML 06/11/18 Follow-up Plan [facility] Primary Care Provider Rylan Dyson MD Time spent on discharge: < 30 minutes Pending Labs Laboratory Tests Test 06/18/18 02:47 Vancomycin Level Trough 20.9 ug/ml (10.0-20.0) JOSIAH BRIONES Jun 18, 2018 11:07
--- NOTE | 2018-06-18 12:37 | CONS ---
Assessment/Plan Assessment/Plan Assessment/Plan (Daily) Family conference done with patient's 2 sons. There is a third son who lives in the [facility] but 2 sons were available make all decisions on level of care for their father. Reviewed all of his current acute and chronic major medical problems recent hospitalizations, mental status respiratory condition which has deteriorated, G-tube placement and recent CVA. We discussed options for ongoing level of care family members were very realistic that their father was deteriorating and his quality of life was poor. Prior to this hospitalization they were taking care of him at home but they feel that he will probably be total body care will not be able to take care of him when he was more fun ctional. The prospect of the chcf unit is highly likely. Conversation turned to the patient's CODE STATUS and it was the 2 sons opinion at the father is capable of the make of his own decisions. Based upon that I have given him my cell phone number and they are to call back today or tomorrow after he speak with her father decide upon level of care and whether or not placement of a pacemaker would be indicated or not based upon patient's decision to pursue aggressive intervention or not. Patient is not end-of-life but in my opinion it appropriate to address CODE STATUS to DO NOT RESUSCITATE but I have also given patient option for DO NOT RESUSCITATE but intubation if necessary for a brief period of time. I believe this is necessary because family members were in crisis and needed to have more options. There was no disagreement amongst the 2 sons were there, he was clearly did not want the father suffered for a prolonged period of time in a chcf unit felt that there was a possibility he may improve somewhat with aggressive physical therapy. At the end of the discussion family members are to get back to me CODE STATUS will be addressed first and I do believe the patient is a candidate for outpatient hospice services based upon the extent of his debility cognitive decline and 2 recent bouts of sepsis syndrome. Per Medicare guidelines he qualifies for o utpatient hospice if family members are in agreement. Consultation Date/Type/Reason Admit Date/Time Jun 11, 2018 at 09:53 Initial Consult Date Requesting Provider: DAVEY GUTIERREZ MD Date/Time of Note DATE: 06/18/18 TIME: 12:31 Exam/Review of Systems Exam Vitals Vital Signs Date Temp Pulse Resp B/P (MAP) Pulse Ox O2 O2 Flow FiO2 Time Delivery Rate 06/18/18 84 12:10 06/18/18 98.2 18 108/66 98 11:48 (80) 06/18/18 Nasal 2.0 08:00 Cannula Intake and Output 06/17/18 06/17/18 06/18/18 1515:00 23:00 07:00 IntakeIntake Total 340 ml 250 ml 510 ml OutputOutput Total 900 ml 300 ml BalanceBalance 340 ml -650 ml 210 ml Results Result Diagram: 06/17/1852006/17/18520 Results 24hrs Laboratory Tests Test 06/18/18 02:47 Vancomycin Level Trough 20.9 *H Medications Medication Current Medications IV Flush (NS 3 ml) 3 ml PER PROTOCOL IV ; Start 06/11/18 at 17:30 Ondansetron HCl (Zofran Tab) 4 mg Q6H PRN PO NAUSEA/VOMITING; Start 06/11/18 at 17:30 Acetaminophen (Tylenol Tab) 650 mg Q6H PRN GTB .PAIN 1-3 OR TEMP; Start 06/11/18 at 17:30 Famotidine (Pepcid Iv) 20 mg DAILY IV Last administered on 06/18/18 08:42; Admin Dose 20 MG; Start 06/11/18 at 21:00 Vancomycin HCl (Vanco Iv Per Pharmacy) VANCOMYCIN PER PHARMACY PER PROTOCOL XX ; Start 06/11/18 at 17:30 Cefepime HCl 50 ml @ 100 mls/hr Q24H IVPB Last administered on 06/18/18 08:43; Admin Dose 100 MLS/HR; Start 06/11/18 at 09:00 Albuterol/ Ipratropium (Duoneb) 3 ml Q6H RESP THERAPY HHN Last administered on 06/18/18 07:29; Admin Dose 3 ML; Start 06/11/18 at 20:00 Furosemide (Lasix) 20 mg DAILY IV Last administered on 06/18/18 08:43; Admin Dose 20 MG; Start 06/11/18 at 19:00 Apixaban (Eliquis) 2.5 mg BID PO Last administered on 06/18/18 08:42; Admin Dose 2.5 MG; Start 06/11/18 at 21:00 Latanoprost (Xalatan) 1 drop QHS BOTH EYES Last administered on 06/17/18 21:00; Admin Dose 1 DROP; Start 06/11/18 at 21:00 Levothyroxine Sodium (Synthroid) 50 mcg BEFORE BREAKFAST GTB Last administered on 06/18/18 07:01; Admin Dose 50 MCG; Start 06/12/18 at 07:00 Eye Lubricant (Artificial Tears Oph) 1 drop PRN PRN BOTH EYES DRY EYES; Start 06/11/18 at 17:30 Sirolimus (Rapamune) 1 mg QHS GTB Last administered on 06/17/18 22:03; Admin Dose 1 MG; Start 06/11/18 at 21:00 Tamsulosin HCl (Flomax) 0.4 mg DAILY PO Last administered on 06/18/18 08:42; Admin Dose 0.4 MG; Start 06/12/18 at 09:00 Tramadol HCl (Ultram) 50 mg Q6H PRN GTB PAIN LEVEL 4-7 Last administered on 06/17/18 22:11; Admin Dose 50 MG; Start 06/11/18 at 17:30 Hydralazine HCl (Apresoline) 10 mg Q4H PRN IV SBP>170 Last administered on 06/15/18 12:59; Admin Dose 10 MG; Start 06/11/18 at 19:30 Metoprolol Tartrate (Lopressor) 5 mg Q4H PRN IV HR>110 HOld SBP<100 Last administered on 06/15/18 15:29; Admin Dose 5 MG; Start 06/11/18 at 19:30 Acetylcysteine (Mucomyst) 2 ml Q6H RESP THERAPY NEB Last administered on 06/18/18 07:30; Admin Dose 2 ML; Start 06/12/18 at 02:00 Diltiazem HCl (Cardizem) 30 mg Q8 PO Last administered on 06/18/18 06:00; Admin Dose 30 MG; Start 06/14/18 at 14:00 Carvedilol (Coreg) 6.25 mg BID PO Last administered on 06/18/18 08:43; Admin Dose 6.25 MG; Start 06/15/18 at 10:00 Ondansetron HCl (Zofran Inj) 4 mg Q6H PRN IV NAUSEA AND/OR VOMITING Last administered on 06/15/18 16:11; Admin Dose 4 MG; Start 06/15/18 at 16:30 Vancomycin HCl 250 ml @ 125 mls/hr Q36H IVPB ; Start 06/18/18 at 16:00 MARGRET JAMESON Jun 18, 2018 12:37
--- NOTE | 2018-06-18 13:45 | CONS ---
Assessment/Plan Assessment/Plan Hospital Course (Demo Recall) Awake, looks comfortable, no fevers Microbiology: Blood culture grew coag negative staph 1 out of 2 sets urine culture negative Chest x-ray revealed left basilar infiltrate and trace left pleural effusion Indwelling: PEG Antimicrobials: Vancomycin, cefepime Physical examination: This is a chronically ill-appearing wasted elderly man who is awake in no distress. Head atraumatic normocephalic sclera nonicteric vehicle mucosa dry neck is supple chest rise symmetrical breath sounds dimin ished bases. Heart: S1-S2. Abdomen soft bowel sounds present. Extremities without cyanosis edema. Assessment: 1. Healthcare associated pneumonia, possibly aspiration 2. Coag negative staph bacteremia, consistent with contaminant 3. Dysphasia 4. Hypertension 5. BPH 6. Atrial fibrillation, status post RVR Plan: Remains stable, continue antibiotics for couple more days Consultation Date/Type/Reason Admit Date/Time Jun 11, 2018 at 09:53 Initial Consult Date Type of Consult id Requesting Provider: DAVEY GUTIERREZ MD Date/Time of Note DATE: 06/18/18 TIME: 13:44 Exam/Review of Systems Exam Vitals Vital Signs Date Temp Pulse Resp B/P (MAP) Pulse Ox O2 O2 Flow FiO2 Time Delivery Rate 06/18/18 84 12:10 06/18/18 98.2 18 108/66 98 11:48 (80) 06/18/18 Nasal 2.0 08:00 Cannula Intake and Output 06/17/18 06/17/18 06/18/18 1515:00 23:00 07:00 IntakeIntake Total 340 ml 250 ml 510 ml OutputOutput Total 900 ml 300 ml BalanceBalance 340 ml -650 ml 210 ml Results Result Diagram: 06/17/18 0521 06/17/18 0521 Results 24hrs Laboratory Tests Test 06/18/18 02:47 Vancomycin Level Trough 20.9 *H Medications Medication Current Medications IV Flush (NS 3 ml) 3 ml PER PROTOCOL IV ; Start 06/11/18 at 17:30 Ondansetron HCl (Zofran Tab) 4 mg Q6H PRN PO NAUSEA/VOMITING; Start 06/11/18 at 17:30 Acetaminophen (Tylenol Tab) 650 mg Q6H PRN GTB .PAIN 1-3 OR TEMP; Start 06/11/18 at 17:30 Famotidine (Pepcid Iv) 20 mg DAILY IV Last administered on 06/18/18 08:42; Admin Dose 20 MG; Start 06/11/18 at 21:00 Vancomycin HCl (Vanco Iv Per Pharmacy) VANCOMYCIN PER PHARMACY PER PROTOCOL XX ; Start 06/11/18 at 17:30 Cefepime HCl 50 ml @ 100 mls/hr Q24H IVPB Last administered on 06/18/18 08:43; Admin Dose 100 MLS/HR; Start 06/11/18 at 09:00 Albuterol/ Ipratropium (Duoneb) 3 ml Q6H RESP THERAPY HHN Last administered on 06/18/18 07:29; Admin Dose 3 ML; Start 06/11/18 at 20:00 Furosemide (Lasix) 20 mg DAILY IV Last administered on 06/18/18 08:43; Admin Dose 20 MG; Start 06/11/18 at 19:00 Apixaban (Eliquis) 2.5 mg BID PO Last administered on 06/18/18 08:42; Admin Dose 2.5 MG; Start 06/11/18 at 21:00 Latanoprost (Xalatan) 1 drop QHS BOTH EYES Last administered on 06/17/18 21:00; Admin Dose 1 DROP; Start 06/11/18 at 21:00 Levothyroxine Sodium (Synthroid) 50 mcg BEFORE BREAKFAST GTB Last administered on 06/18/18 07:01; Admin Dose 50 MCG; Start 06/12/18 at 07:00 Eye Lubricant (Artificial Tears Oph) 1 drop PRN PRN BOTH EYES DRY EYES; Start 06/11/18 at 17:30 Sirolimus (Rapamune) 1 mg QHS GTB Last administered on 06/17/18 22:03; Admin Dose 1 MG; Start 06/11/18 at 21:00 Tamsulosin HCl (Flomax) 0.4 mg DAILY PO Last administered on 06/18/18 08:42; Admin Dose 0.4 MG; Start 06/12/18 at 09:00 Tramadol HCl (Ultram) 50 mg Q6H PRN GTB PAIN LEVEL 4-7 Last administered on 06/17/18 22:11; Admin Dose 50 MG; Start 06/11/18 at 17:30 Hydralazine HCl (Apresoline) 10 mg Q4H PRN IV SBP>170 Last administered on 06/15/18 12:59; Admin Dose 10 MG; Start 06/11/18 at 19:30 Metoprolol Tartrate (Lopressor) 5 mg Q4H PRN IV HR>110 HOld SBP<100 Last administered on 06/15/18 15:29; Admin Dose 5 MG; Start 06/11/18 at 19:30 Acetylcysteine (Mucomyst) 2 ml Q6H RESP THERAPY NEB Last administered on 06/18/18 07:30; Admin Dose 2 ML; Start 06/12/18 at 02:00 Diltiazem HCl (Cardizem) 30 mg Q8 PO Last administered on 06/18/18 06:00; Admin Dose 30 MG; Start 06/14/18 at 14:00 Carvedilol (Coreg) 6.25 mg BID PO Last administered on 06/18/18 08:43; Admin Dose 6.25 MG; Start 06/15/18 at 10:00 Ondansetron HCl (Zofran Inj) 4 mg Q6H PRN IV NAUSEA AND/OR VOMITING Last administered on 06/15/18 16:11; Admin Dose 4 MG; Start 06/15/18 at 16:30 Vancomycin HCl 250 ml @ 125 mls/hr Q36H IVPB ; Start 06/18/18 at 16:00 ALEE CASTAÑEDA NP Jun 18, 2018 13:45
--- NOTE | 2018-06-18 15:04 | CONS ---
Assessment/Plan Assessment/Plan Hospital Course (Demo Recall) IMPRESSION: 1. Atrial fibrillation with mild rapid ventricular response.-neg trop x 3. NL EF by echo. Had apparan[employer] long pause. ? true. in chart not monitor. 2. Abnormal electrocardiogram with nonspecific ST abnormalities, assess for acute coronary syndrome. 3. Hypertension. 4. Shortness of breath with possible pneumonia by chest x-ray. 5. Elevated blood sugars. 6. Leukocytosis. 7. Hypothyroidism. 8. Benign prostatic hypertrophy. Recc: -Tele -serial ecg's -Continue lasix -Continue eliquis -Continue dilt/coreg as tolerated and follow HR/rhythm closely with PPM for recurrent sig pause/inability to control HR on these relatively low doses of grace agents. -s/p EP consult with PPM as absolutely necessary only and per conversation with son today patient states that he does not want PPM at this time and will discuss with patient again. Consultation Date/Type/Reason Admit Date/Time Jun 11, 2018 at 09:53 Initial Consult Date 06/11/18 Type of Consult Cardiology Reason for Consultation AF Requesting Provider: DAVEY GUTIERREZ MD Date/Time of Note DATE: 06/18/18 TIME: 15:02 Exam/Review of Systems Vital Signs Vitals Vital Signs Date Temp Pulse Resp B/P (MAP) Pulse Ox O2 O2 Flow FiO2 Time Delivery Rate 06/18/18 2.0 14:26 06/18/18 86 18 95 Nasal 14:26 Cannula 06/18/18 98.2 108/66 11:48 (80) Intake and Output 06/17/18 06/17/18 06/18/18 1515:00 23:00 07:00 IntakeIntake Total 340 ml 250 ml 510 ml OutputOutput Total 900 ml 300 ml BalanceBalance 340 ml -650 ml 210 ml Exam Exam Review of Systems: CONSTITUTIONAL: No fevers, chills. PULMONARY: No sob CARDIOVASCULAR: No chest pain/palpitations GASTROINTESTINAL: No nausea/vomiting. GENITOURINARY: No hematuria/dysuria. MUSCULOSKELETAL: No myagias/arthalgias. PSYCHIATRIC: The patient denies depression. NEUROLOGIC: No weakness Constitutional: alert Psych: no complaints ENMT: mucosa pink and moist Neck: supple, jvd (9 cm water) Respiratory: diminished breath sounds (at bases/B) Cardiovascular: regular rate and rhythm Gastrointestinal: soft, non-tender Musculoskeletal: muscle tone (normal) Extremities: edema (none) Neurological: other (No focal deficits) Labs Result Diagram: 06/17/1852006/17/18520 Results 24hrs Laboratory Tests Test 06/18/18 02:47 Vancomycin Level Trough 20.9 *H Medications Medications Current Medications IV Flush (NS 3 ml) 3 ml PER PROTOCOL IV ; Start 06/11/18 at 17:30 Ondansetron HCl (Zofran Tab) 4 mg Q6H PRN PO NAUSEA/VOMITING; Start 06/11/18 at 17:30 Acetaminophen (Tylenol Tab) 650 mg Q6H PRN GTB .PAIN 1-3 OR TEMP; Start 06/11/18 at 17:30 Famotidine (Pepcid Iv) 20 mg DAILY IV Last administered on 06/18/18 08:42; Admin Dose 20 MG; Start 06/11/18 at 21:00 Vancomycin HCl (Vanco Iv Per Pharmacy) VANCOMYCIN PER PHARMACY PER PROTOCOL XX ; Start 06/11/18 at 17:30 Cefepime HCl 50 ml @ 100 mls/hr Q24H IVPB Last administered on 06/18/18 08:43; Admin Dose 100 MLS/HR; Start 06/11/18 at 09:00 Albuterol/ Ipratropium (Duoneb) 3 ml Q6H RESP THERAPY HHN Last administered on 06/18/18 14:25; Admin Dose 3 ML; Start 06/11/18 at 20:00 Furosemide (Lasix) 20 mg DAILY IV Last administered on 06/18/18 08:43; Admin Dose 20 MG; Start 06/11/18 at 19:00 Apixaban (Eliquis) 2.5 mg BID PO Last administered on 06/18/18 08:42; Admin Dose 2.5 MG; Start 06/11/18 at 21:00 Latanoprost (Xalatan) 1 drop QHS BOTH EYES Last administered on 06/17/18at 21:00; Admin Dose 1 DROP; Start 06/11/18 at 21:00 Levothyroxine Sodium (Synthroid) 50 mcg BEFORE BREAKFAST GTB Last administered on 06/18/18 07:01; Admin Dose 50 MCG; Start 06/12/18 at 07:00 Eye Lubricant (Artificial Tears Oph) 1 drop PRN PRN BOTH EYES DRY EYES; Start 06/11/18 at 17:30 Sirolimus (Rapamune) 1 mg QHS GTB Last administered on 06/17/18 22:03; Admin Dose 1 MG; Start 06/11/18 at 21:00 Tamsulosin HCl (Flomax) 0.4 mg DAILY PO Last administered on 06/18/18 08:42; Admin Dose 0.4 MG; Start 06/12/18 at 09:00 Tramadol HCl (Ultram) 50 mg Q6H PRN GTB PAIN LEVEL 4-7 Last administered on 06/17/18 22:11; Admin Dose 50 MG; Start 06/11/18 at 17:30 Hydralazine HCl (Apresoline) 10 mg Q4H PRN IV SBP>170 Last administered on 06/15/18 12:59; Admin Dose 10 MG; Start 06/11/18 at 19:30 Metoprolol Tartrate (Lopressor) 5 mg Q4H PRN IV HR>110 HOld SBP<100 Last administered on 06/15/18at 15:29; Admin Dose 5 MG; Start 06/11/18 at 19:30 Acetylcysteine (Mucomyst) 2 ml Q6H RESP THERAPY NEB Last administered on 06/18/18 14:25; Admin Dose 2 ML; Start 06/12/18 at 02:00 Diltiazem HCl (Cardizem) 30 mg Q8 PO Last administered on 06/18/18 06:00; Admin Dose 30 MG; Start 06/14/18 at 14:00 Carvedilol (Coreg) 6.25 mg BID PO Last administered on 06/18/18 08:43; Admin Dose 6.25 MG; Start 06/15/18 at 10:00 Ondansetron HCl (Zofran Inj) 4 mg Q6H PRN IV NAUSEA AND/OR VOMITING Last administered on 06/15/18 16:11; Admin Dose 4 MG; Start 06/15/18 at 16:30 Vancomycin HCl 250 ml @ 125 mls/hr Q36H IVPB ; Start 06/18/18 at 16:00 RORY JANSEN Jun 18, 2018 15:04
--- NOTE | 2018-06-18 15:53 | QN ---
Documentation Comment PT SEEN AND EXAMINED SEE DC ADVEY YEPEZ MD Jun 18, 2018 15:53
[2018-06-18] MEDS ORDERED: VANCOMYCIN 1 GM 250 ML IVPB SCH (16:00)
[2018-06-19] MEDS ORDERED: FAMOTIDINE 20 MG TAB GTB SCH (09:00)
== END 2018-06-18 19:30 | DRG 291 ==
LOC: E/R 07:53 → 6WM 09:53
PROVIDERS: ADMIT Family Medicine; ATTEND Internal Medicine Nephrology
DX: I11.0 Hypertensive heart disease with heart failure (principal); J69.0 Pneumonitis due to inhalation of food and vomit; J96.21 Acute and chronic respiratory failure with hypoxia; Z94.0 Kidney transplant status; D68.69 Other thrombophilia; I69.354 Hemiplegia and hemiparesis following cerebral infarction affecting left non-dominant side; I49.5 Sick sinus syndrome; R13.11 Dysphagia, oral phase; Z99.81 Dependence on supplemental oxygen; J44.9 Chronic obstructive pulmonary disease, unspecified; Z93.1 Gastrostomy status; I69.391 Dysphagia following cerebral infarction; I48.2 Chronic atrial fibrillation; D64.9 Anemia, unspecified; Z79.01 Long term (current) use of anticoagulants; I50.9 Heart failure, unspecified; E03.9 Hypothyroidism, unspecified; E78.5 Hyperlipidemia, unspecified; N40.1 Benign prostatic hyperplasia with lower urinary tract symptoms; R33.8 Other retention of urine; Z74.01 Bed confinement status; Z90.5 Acquired absence of kidney
CPT/HCPCS: 36415; 36600; 71045; 74018; 74230; 80048; 80053; 80202; 81001; 82550; 82553; 82803; 83036; 83605; 83690; 83735; 83880; 84100; 84443; 84484; 85025; 85610; 85730; 87086; 87400; 92610; 92611; 93005; 93306; 94640; 94664; 96374; 96375; 97162; J0360; J0692; J1940; J2405; J3370; J7040; J7042

== ENCOUNTER 2018-09-29 06:54 | Inpatient (IN) | payer MEDICARE, OTHER ==
[~2018-09-29] VITALS: Ht 170.2 cm; Wt 67.6 kg
[~2018-09-29 06:54] MED LIST: ACET-2047 GTB; ACET325S G-TUBE; ALBU2.5V3 NEB; AMLO-147 G-TUBE; APIX2.5T GTB; CARV6.25 GTB; DILTIAZEM HCL GTB; FAMO20TA18 GTB; FURO20TA3 GTB; GUAI400T22 G-TUBE; LATA2.5D2 BOTH EYES; LEVO50TA71 GTB; MUCO4 NEB; ONDA4TAB13 GTB; POLY15DR11 BOTH EYES; POLY15DR25 OP; SIRO1TAB G-TUBE; SOTA80TA53 G-TUBE; TAMS0.4C2 G-TUBE; TIOT18CA INHALATION; TRAM50TA2 G-TUBE
--- NOTE | 2018-09-29 07:45 | ERD ---
ER Documentation Chief Complaint Chief Complaint BIB [facility] FOR EVAL OF SEIZURE HX OF SZ. TAKES KEPPRA. COUGHING LOW O2 HPI 83-year-old male coming in from a nursing facility after witnessed tonic-clonic seizure after the seizure patient developed temporary chest pain that resolved prior to arrival to the from the emergency department. Patient has a history of A. 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 No known history of seizures. Patient currently is denying any symptoms. States he is back to his baseline. ROS All systems reviewed and are negative except as per history of present illness. Medications Home Meds Reported Medications [Diltiazem Hcl] No Conflict Check, 2.5 ML GTB Q8H DILTIAZEM HCL SOLUTION 12MG/ML HOLD IF SBP<110 OR [place]<60 09/29/18 Ondansetron Hcl* (Zofran*) 4 Mg Tab, 4 MG GTB Q6H PRN for NAUSEA AND OR VOMITING, TAB 09/29/18 Latanoprost (Latanoprost) 2.5 Ml Drops, 1 DROP BOTH EYES QHS, #1 BOTTLE 09/29/18 Famotidine* (Famotidine*) 20 Mg Tablet, 20 MG GTB BID, #60 TAB 09/29/18 Furosemide* (Furosemide*) 20 Mg Tablet, 20 MG GTB DAILY, #60 TAB 09/29/18 Carvedilol* (Coreg*) 6.25 Mg Tablet, 6.25 MG GTB BID, #60 TAB HOLD FOR SBP<110 OR [place]<60 09/29/18 Polyvinyl Alcohol* (Akwa Tears*) 1.4% - 15 Ml Drops, 1 DROP BOTH EYES Q6H, #1 BOTTLE 09/29/18 Albuterol Sulfate* (Albuterol Sulfate* Neb) 0.083%-3 Ml Neb, 1.25 MG NEB Q6H PRN for WHEEZING AND SOB, #30 VIAL GIVE WITH ACETYLCYSTEINE SOLUTION 09/29/18 Acetylcysteine* (Mucomyst*) 4 Ml Soln, 2 ML NEB Q6H PRN for COPD, EA GIVE WITH ALBUTEROL 09/29/18 Acetaminophen* (Acetaminophen*) 650 Mg Tablet, 650 MG GTB Q4H PRN for PAIN LEVEL 1-5/10, #30 TAB 09/29/18 Tramadol HCl (Tramadol HCl) 50 Mg Tablet, 50 MG G-TUBE Q6H PRN for PAIN LEVEL 6- 12/09, #120 TAB 06/11/18 Sirolimus* (Rapamune*) 1 Mg Tablet, 1 MG G-TUBE QHS, TAB 06/11/18 Levothyroxine Sodium* (Levoxyl*) 50 Mcg Tablet, 50 MCG GTB BEFORE BREAKFAST, #30 TAB 06/11/18 Tamsulosin Hcl* (Tamsulosin Hcl*) 0.4 Mg Cap.er.24h, 0.4 MG G-TUBE QPM, CAP 06/11/18 Apixaban* (Eliquis*) 2.5 Mg Tablet, 2.5 MG GTB BID, TAB 06/11/18 Discontinued Reported Medications Tiotropium [place]* (Spiriva*) 18 Mcg Cap.w.dev, 1 CAP INHALATION DAILY, #30 CAP 06/11/18 Sotalol Hcl* (Betapace*) 80 Mg Tab, 40 MG G-TUBE BID, TAB 06/11/18 Latanoprost (Latanoprost) 2.5 Ml Drops, 1 DROP BOTH EYES QHS, #1 BOTTLE 06/11/18 Guaifenesin* (Refenesen*) 400 Mg Tablet, 400 MG G-TUBE Q8H PRN for COUGH, TAB 06/11/18 Polyvinyl Alcohol (Tears Again) 15 Ml Drops, 15 ML OP PRN PRN for DRY EYES, BOTTLE 06/11/18 Amlodipine Besylate* (Amlodipine Besylate*) 10 Mg Tablet, 10 MG G-TUBE DAILY, #30 TAB 06/11/18 Acetaminophen* (Acetaminophen* Susp) 325 Mg/10.15 Ml Solution, 640 MG G-TUBE Q4H PRN for PAIN OR TEMP ABOVE 38C, ML 06/11/18 Allergies Allergies: Coded Allergies: No Known Allergy (Unverified , 09/29/18) PMhx/Soc History of Surgery: Yes (surgical clips in lungs, no documentation for what kind of surgery) Hx Neurological Disorder: Yes (CVA 4 months ago, left side weakness, hemiplegia) Hx Respiratory Disorders: Yes (pneumonitis) Hx Cardiac Disorders: Yes (essential hypertension, cardiomegaly) Hx Psychiatric Problems: No Hx Miscellaneous Medical Probl: Yes (CVA,chronic hypoxia on O2, G-tube) Hx Alcohol Use: No Hx Substance Use: No Hx Tobacco Use: No Smoking Status: Never smoker Physical Exam Vitals Vital Signs Date Temp Pulse Resp B/P (MAP) Pulse Ox O2 O2 Flow FiO2 Time Delivery Rate 09/29/18 97.9 82 20 102/78 90 07:11 (86) Physical Exam Const: No acute distress Head: Atraumatic Eyes: Normal Conjunctiva ENT: Normal External Ears, Nose and Mouth. Neck: Full range of motion. No meningismus. Resp: Clear to auscultation bilaterally Cardio: Regular rate and rhythm, no murmurs Abd: Soft, non tender, non distended. Normal bowel sounds. G-tube site clean dry intact Skin: No petechiae or rashes Back: No midline or flank tenderness Ext: No cyanosis, or edema Neur: Awake and alert. Extremities with limited range of motion. Left upper and lower spastic. Psych: Normal Mood and Affect Result Diagram: 09/29/1836 09/29/18 0736 Results 24 hrs Laboratory Tests Test 09/29/18 07:36 White Blood Count 5.3 10^3/ul Red Blood Count 4.45 10^6/ul Hemoglobin 13.7 g/dl Hematocrit 44.6 % Mean Corpuscular Volume 100.2 fl Mean Corpuscular Hemoglobin 30.8 pg Mean Corpuscular Hemoglobin Concent 30.7 g/dl Red Cell Distribution Width 13.8 % Platelet Count 134 10^3/UL Mean Platelet Volume 13.1 fl Immature Granulocytes % 0.400 % Neutrophils % 67.3 % Lymphocytes % 14.0 % Monocytes % 11.5 % Eosinophils % 6.2 % Basophils % 0.6 % Nucleated Red Blood Cells % 0.0 /100WBC Immature Granulocytes # 0.020 10^3/ul Neutrophils # 3.6 10^3/ul Lymphocytes # 0.7 10^3/ul Monocytes # 0.6 10^3/ul Eosinophils # 0.3 10^3/ul Basophils # 0.0 10^3/ul Nucleated Red Blood Cells # 0.0 10^3/ul Sodium Level 141 mmol/L Potassium Level 4.0 mmol/L Chloride Level 96 mmol/L Carbon Dioxide Level 38 mmol/L Anion Gap 7 Blood Urea Nitrogen 39 mg/dl Creatinine 0.89 mg/dl Est Glomerular Filtrat Rate mL/min mL/min Glucose Level 152 mg/dl Calcium Level 10.5 mg/dl Total Bilirubin 0.9 mg/dl Direct Bilirubin 0.00 mg/dl Indirect Bilirubin 0.9 mg/dl Aspartate Amino Transf (AST/SGOT) 30 IU/L Alanine Aminotransferase (ALT/SGPT) 17 IU/L Alkaline Phosphatase 60 IU/L Troponin I < 0.012 ng/ml Total Protein 8.2 g/dl Albumin 4.2 g/dl Globulin 4.00 g/dl Albumin/Globulin Ratio 1.05 Current Medications Medications Dose Sig/Sharif Start Time Status Last (Trade) Ordered Route PRN Stop Time Admin Dose Reason Admin 112.5 ml @ Q12 IVPB 09/29/18 Levetiracetam 450 mls/hr 09:30 1250 mg/Dextrose Procedures/MDM ECG Time: 730 Ventricular Rate: 84 Rhythm: normal sinus rhythm. ST Segments: without evidence of depressions or elevations Intervals: Atrial fibrillation. QRS within normal limits QT within normal limits 83-year-old male presenting with first-time seizure currently at mental baseline CT brain showing new lytic lesion. Vital signs and labs are unremarkable. Keppra given prophylactically spoke with neurosurgery Dr. Moreno who recommended admission for further work-up he will follow patient. patient is currently protecting his airway no evidence of infection at this time. QUINTEN MILLER MD Sep 29, 2018 07:45
[2018-09-29] MEDS ORDERED: LEVETIRACETAM IV 1,250 MG in DEXTROSE 5% 100 ML IVPB SCH (09:30)
[2018-09-29] MEDS ORDERED: ACETAMINOPHEN 325 MG TAB PO PRN ×2 (10:30→15:30)
[2018-09-29] MEDS ORDERED: ONDANSETRON 4 MG INJ IV PRN ×2 (10:30→15:30)
--- NOTE | 2018-09-29 14:03 | CONSI ---
Assessment/Plan Assessment/Plan Assessment/Plan (Recall) 83 M c/ afib c/b prior stroke, and other comorbidities...who presents for evaluation following his first seizure of life.. CT head confirms extensive encephalomalacia from prior infarction.. The clinical picture suggests new onset epilepsy.. P: Change Keppra to 500mg bid for now Ativan iv prn prolonged seizure or cluster Continue eliquis for secondary stroke prevention Other management and supportive care per primary Will follow Consultation Date/Type/Reason Admit Date/Time Type of Consult Neurology Reason for Consultation seizure Requesting Provider: SERAFIN GALE Date/Time of Note DATE: 09/29/18 TIME: 14:03 Hx of Present Illness Patient is unable to contribute a Hx. It else elsewhere noted: Patient is a [place] male with a past medical history significant for atrial fibrillation, COPD, chronic debility, CVA with residual left-sided deficit, nephrectomy, hypothyroidism, BPH,'s chronic dysphasia, chronic hypoxia who presents to [facility] for new onset seizure. Patient has been in a [facility] facility ever since he has had chronic dysphasia with PEG tube and persistent debility secondary to a stroke last year. Patient is currently back to baseline after seizure. More history is received from patient's sons at bedside. Patient is able to follow command however does have a residual left sided deficit with minimal movement on the left upper and lower extremity however is able to squeeze fingers and move his leg. Patient has been able to walk with assistance and walker as recently as 1 month ago. Patient had a questionable chest pain complaint that subsequently resolved after he got to the ED, currently has no acute complaints at this time. Patient denies chest pain, shortness of breath, abdominal pain, headache, nausea, vomiting, leg pain Subjective hx not possible: pt non-verbal Objective Exam Vitals Vital Signs Date Temp Pulse Resp B/P (MAP) Pulse Ox O2 O2 Flow FiO2 Time Delivery Rate 09/29/18 82 20 95/59 (71) 99 Room Air 13:15 09/29/18 97.9 07:11 Exam PE: Gen Appearance: No Apparent Distress HEENT: Normocephalic Cardiovascular: Regular rate Abdomen: Soft Extremities: Dry NE: The patient was alert though nonverbal, able to follow simple commands. Pupils were equal and reactive to light. There was no afferent pupillary defect. Visual muniz were normal. Funduscopic examination was limited. Extra-ocular movements were full. Ptosis was absent. There was no nystagmus. Facial sensation was normal. Face was symmetric with normal strength. Hearing was intact. Palate movements were normal. Neck strength was normal. There was normal tongue bulk and speed of movement. Tone was increased on the left. Muscle bulk was normal. I did not see fasciculations. Arms and legs were asymmetric, with left sided weakness (arm > leg) Sensation was difficult to assess. Rapid alternating movements were slow. There was no obvious dysmetria. There was no intention tremor. Gait was deferred due to bedrest. Arm and leg reflexes were brisk on the left. Rene's sign was absent. Plantar responses were flexor. Results Result Diagram: 09/29/18 0736 09/29/18 0736 Results 24hrs Laboratory Tests Test 09/29/18 07:36 09/29/18 09:39 White Blood Count 5.3 # Red Blood Count 4.45 #L Hemoglobin 13.7 #L Hematocrit 44.6 Mean Corpuscular Volume 100.2 Mean Corpuscular Hemoglobin 30.8 Mean Corpuscular Hemoglobin Concent 30.7 L Red Cell Distribution Width 13.8 Platelet Count 134 L Mean Platelet Volume 13.1 H Immature Granulocytes % 0.400 Neutrophils % 67.3 Lymphocytes % 14.0 L Monocytes % 11.5 H Eosinophils % 6.2 Basophils % 0.6 Nucleated Red Blood Cells % 0.0 Immature Granulocytes # 0.020 Neutrophils # 3.6 Lymphocytes # 0.7 L Monocytes # 0.6 Eosinophils # 0.3 Basophils # 0.0 Nucleated Red Blood Cells # 0.0 Sodium Level 141 Potassium Level 4.0 Chloride Level 96 L Carbon Dioxide Level 38 H Anion Gap 7 Blood Urea Nitrogen 39 H Creatinine 0.89 Est Glomerular Filtrat Rate mL/min Glucose Level 152 Calcium Level 10.5 H Total Bilirubin 0.9 Direct Bilirubin 0.00 Indirect Bilirubin 0.9 Aspartate Amino Transf (AST/SGOT) 30 Alanine Aminotransferase (ALT/SGPT) 17 Alkaline Phosphatase 60 Troponin I < 0.012 Total Protein 8.2 H Albumin 4.2 Globulin 4.00 H Albumin/Globulin Ratio 1.05 Urine Color YELLOW Urine Clarity CLOUDY A Urine pH 7.0 Urine Specific [place] 1.017 Urine Ketones NEGATIVE Urine Nitrite NEGATIVE Urine Bilirubin NEGATIVE Urine Urobilinogen NEGATIVE Urine Leukocyte Esterase NEGATIVE Urine Microscopic RBC 1 Urine Microscopic WBC 0 Urine Amorphous Crystals FEW A Urine Bacteria FEW A Urine Hemoglobin NEGATIVE Urine Glucose NEGATIVE Urine Total Protein NEGATIVE Past Medical History reviewed Home Meds Reported Medications [Diltiazem Hcl] No Conflict Check, 2.5 ML GTB Q8H DILTIAZEM HCL SOLUTION 12MG/ML HOLD IF SBP<110 OR [place]<60 09/29/18 Ondansetron Hcl* (Zofran*) 4 Mg Tab, 4 MG GTB Q6H PRN for NAUSEA AND OR VOMITING, TAB 09/29/18 Latanoprost (Latanoprost) 2.5 Ml Drops, 1 DROP BOTH EYES QHS, #1 BOTTLE 09/29/18 Famotidine* (Famotidine*) 20 Mg Tablet, 20 MG GTB BID, #60 TAB 09/29/18 Furosemide* (Furosemide*) 20 Mg Tablet, 20 MG GTB DAILY, #60 TAB 09/29/18 Carvedilol* (Coreg*) 6.25 Mg Tablet, 6.25 MG GTB BID, #60 TAB HOLD FOR SBP<110 OR [place]<60 09/29/18 Polyvinyl Alcohol* (Akwa Tears*) 1.4% - 15 Ml Drops, 1 DROP BOTH EYES Q6H, #1 BOTTLE 09/29/18 Albuterol Sulfate* (Albuterol Sulfate* Neb) 0.083%-3 Ml Neb, 1.25 MG NEB Q6H PRN for WHEEZING AND SOB, #30 VIAL GIVE WITH ACETYLCYSTEINE SOLUTION 09/29/18 Acetylcysteine* (Mucomyst*) 4 Ml Soln, 2 ML NEB Q6H PRN for COPD, EA GIVE WITH ALBUTEROL 09/29/18 Acetaminophen* (Acetaminophen*) 650 Mg Tablet, 650 MG GTB Q4H PRN for PAIN LEVEL 1-5/10, #30 TAB 09/29/18 Tramadol HCl (Tramadol HCl) 50 Mg Tablet, 50 MG G-TUBE Q6H PRN for PAIN LEVEL 6- 10/10, #120 TAB 06/11/18 Sirolimus* (Rapamune*) 1 Mg Tablet, 1 MG G-TUBE QHS, TAB 06/11/18 Levothyroxine Sodium* (Levoxyl*) 50 Mcg Tablet, 50 MCG GTB BEFORE BREAKFAST, #30 TAB 06/11/18 Tamsulosin Hcl* (Tamsulosin Hcl*) 0.4 Mg Cap.er.24h, 0.4 MG G-TUBE QPM, CAP 06/11/18 Apixaban* (Eliquis*) 2.5 Mg Tablet, 2.5 MG GTB BID, TAB 06/11/18 Discontinued Reported Medications Tiotropium [place]* (Spiriva*) 18 Mcg Cap.w.dev, 1 CAP INHALATION DAILY, #30 CAP 06/11/18 Sotalol Hcl* (Betapace*) 80 Mg Tab, 40 MG G-TUBE BID, TAB 06/11/18 Latanoprost (Latanoprost) 2.5 Ml Drops, 1 DROP BOTH EYES QHS, #1 BOTTLE 06/11/18 Guaifenesin* (Refenesen*) 400 Mg Tablet, 400 MG G-TUBE Q8H PRN for COUGH, TAB 06/11/18 Polyvinyl Alcohol (Tears Again) 15 Ml Drops, 15 ML OP PRN PRN for DRY EYES, BOTTLE 06/11/18 Amlodipine Besylate* (Amlodipine Besylate*) 10 Mg Tablet, 10 MG G-TUBE DAILY, #30 TAB 06/11/18 Acetaminophen* (Acetaminophen* Susp) 325 Mg/10.15 Ml Solution, 640 MG G-TUBE Q4H PRN for PAIN OR TEMP ABOVE 38C, ML 06/11/18 Medications Current Medications Levetiracetam 1250 mg/Dextrose 112.5 ml @ 450 mls/hr Q12 IVPB Last administered on 09/29/18at 09:43; Admin Dose 450 MLS/HR; Start 09/29/18 at 09:30 Ondansetron HCl (Zofran Inj) 4 mg ER BRIDGE PRN IV NAUSEA/VOMITING; Start 09/29/18 at 10:30; Stop 09/30/18 at 10:29 Acetaminophen (Tylenol Tab) 650 mg ER BRIDGE PRN PO .MILD PAIN 1-3 OR TEMP; Start 09/29/18 at 10:30; Stop 09/30/18 at 10:29 Allergies: Coded Allergies: No Known Allergy (Unverified , 09/29/18) Social History Smoking Status: Never smoker ELIANA LISA Sep 29, 2018 14:03
[2018-09-29] MEDS ORDERED: HYDROCODONE/APAP (5/325) TAB PO PRN (15:30)
[2018-09-29] MEDS ORDERED: morphine 2 MG INJ IV PRN (15:30)
[2018-09-29] MEDS ORDERED: LORAZEPAM 2 MG INJ IV PRN (15:30)
[2018-09-29] MEDS ORDERED: NACL 0.9% 3 ML SYG IV SCH (15:30)
[2018-09-29] MEDS: ARTIFICIAL TEARS 15 ML OPH BOTH EYES SCH ×2 (16:00→21:30)
--- NOTE | 2018-09-29 16:08 | HP ---
Date/Time of Note Date/Time of Note DATE: 09/29/18 TIME: 16:08 Assessment/Plan VTE Prophylaxis Pharmacological prophylaxis: apixaban Lines/Catheters IV Catheter Type (from Nrs): Mid Line Assessment/Plan Hospital Course Patient is a [place] male with a past medical history significant for atrial fibrillation, COPD, chronic debility, CVA with residual left-sided deficit, nephrectomy, hypothyroidism, BPH,'s chronic dysphasia, chronic hypoxia who pre sents to [facility] for new onset seizure. Patient has been in a snf facility ever since he has had chronic dysphasia with PEG tube and persistent debility secondary to a stroke last year. Patient is currently back to baseline after seizure. More history is received from patient's sons at bedside. Patient is able to follow command however does have a residual left sided deficit with minimal movement on the left upper and lower extremity however is able to squeeze fingers and move his leg. Patient has been able to walk with assistance and walker as recently as 1 month ago. Patient had a questionable chest pain complaint that subsequently resolved after he got to the ED, currently has no acute complaints at this time. Patient denies chest pain, shortness of breath, abdominal pain, headache, nausea, vomiting, leg pain Objective Physical exam General: Patient is laying in bed and answers questions appropriately, but slowly and some garbled speech Mentation: Patient is alert and oriented Head: Normocephalic atraumatic Eyes: EOMI, pupils reactive to light Neck: Supple, nontender, midline Respiratory: Clear to auscultation bilaterally Cardiovascular: regular rate, no obvious murmurs Gastrointestinal: non-tender to palpation, bowel sounds heard. Neurological: Only able to squeeze lightly and left upper extremity, able to move left lower extremity slightly with toes, right lower extremity has slightly more movement than left and right upper extremity has full movement with good mold filler strength Skin: No new skin lesions Assessment and plan New onset seizure -Patient seen by neurology, due to abnormality in the cortex, recommends patient to be on Keppra twice a day -We will follow, was loaded with Keppra in the ER -As needed Ativan for additional seizure Lytic lesion in the skull -Oncology consulted, questionable multiple myeloma -Patient does have mildly elevated calcium Atrial fibrillation -Continue home medications as well as Eliquis -Cardiology has been consulted Chest pain -Cardiology consulted, no more chest pain at this time, even questionable history of chest pain COPD -Nebulizers History of nephrectomy and kidney repair transplant -Continue on serial limits BPH Continue Flomax History of CVA with residual left-sided weakness -Stable, neurology following Chronic dysphasia -Patient with PEG tube Disposition -Continue work-up from oncology, neurology and cardiology also following. Result Diagram: 09/29/18 0736 09/29/18 0736 Results 24hrs Laboratory Tests Test 09/29/18 07:36 09/29/18 09:39 White Blood Count 5.3 # Red Blood Count 4.45 #L Hemoglobin 13.7 #L Hematocrit 44.6 Mean Corpuscular Volume 100.2 Mean Corpuscular Hemoglobin 30.8 Mean Corpuscular Hemoglobin Concent 30.7 L Red Cell Distribution Width 13.8 Platelet Count 134 L Mean Platelet Volume 13.1 H Immature Granulocytes % 0.400 Neutrophils % 67.3 Lymphocytes % 14.0 L Monocytes % 11.5 H Eosinophils % 6.2 Basophils % 0.6 Nucleated Red Blood Cells % 0.0 Immature Granulocytes # 0.020 Neutrophils # 3.6 Lymphocytes # 0.7 L Monocytes # 0.6 Eosinophils # 0.3 Basophils # 0.0 Nucleated Red Blood Cells # 0.0 Sodium Level 141 Potassium Level 4.0 Chloride Level 96 L Carbon Dioxide Level 38 H Anion Gap 7 Blood Urea Nitrogen 39 H Creatinine 0.89 Est Glomerular Filtrat Rate mL/min Glucose Level 152 Calcium Level 10.5 H Total Bilirubin 0.9 Direct Bilirubin 0.00 Indirect Bilirubin 0.9 Aspartate Amino Transf (AST/SGOT) 30 Alanine Aminotransferase (ALT/SGPT) 17 Alkaline Phosphatase 60 Troponin I < 0.012 Total Protein 8.2 H Albumin 4.2 Globulin 4.00 H Albumin/Globulin Ratio 1.05 Urine Color YELLOW Urine Clarity CLOUDY A Urine pH 7.0 Urine Specific [place] 1.017 Urine Ketones NEGATIVE Urine Nitrite NEGATIVE Urine Bilirubin NEGATIVE Urine Urobilinogen NEGATIVE Urine Leukocyte Esterase NEGATIVE Urine Microscopic RBC 1 Urine Microscopic WBC 0 Urine Amorphous Crystals FEW A Urine Bacteria FEW A Urine Hemoglobin NEGATIVE Urine Glucose NEGATIVE Urine Total Protein NEGATIVE HPI/ROS Admit Date/Time Admit Date/Time PMH/Family/Social Past Medical History Medications Current Medications IV Flush (NS 3 ml) 3 ml PER PROTOCOL IV ; Start 09/29/18 at 15:30 Lorazepam (Ativan) 2 mg Q10MIN PRN IV seizure; Start 09/29/18 at 15:30 Ondansetron HCl (Zofran Inj) 4 mg Q6H PRN IV NAUSEA/VOMITING; Start 09/29/18 at 15:30 Acetaminophen (Tylenol Tab) 650 mg Q6H PRN PO .PAIN 1-3 OR TEMP; Start 09/29/18 at 15:30 Acetaminophen/ Hydrocodone Bitart ([place] (5/325)) 1 tab Q6H PRN PO .PAIN 4-6; Start 09/29/18 at 15:30 Morphine Sulfate (morphine) 2 mg Q4H PRN IV .PAIN 7-10; Start 09/29/18 at 15:30 Levetiracetam (Keppra) 500 mg BID PEG ; Start 09/29/18 at 21:00 Apixaban (Eliquis) 2.5 mg BID GTB ; Start 09/29/18 at 21:00; Status UNV Carvedilol (Coreg) 6.25 mg BID GTB ; Start 09/29/18 at 21:00; Status UNV Famotidine (Pepcid) 20 mg BID GTB ; Start 09/29/18 at 21:00; Status UNV Furosemide (Lasix) 20 mg DAILY GTB ; Start 09/30/18 at 09:00; Status UNV Latanoprost (Xalatan) 1 drop QHS BOTH EYES ; Start 09/29/18 at 21:00; Status UNV Levothyroxine Sodium (Synthroid) 50 mcg BEFORE BREAKFAST GTB ; Start 09/30/18 at 07:00; Status UNV Eye Lubricant (Artificial Tears Oph) 1 drop Q6H BOTH EYES ; Start 09/29/18 at 16:00; Status UNV Sirolimus (Rapamune) 1 mg QHS PEG ; Start 09/29/18 at 21:00; Status UNV Tamsulosin HCl (Flomax) 0.4 mg QPM PO ; Start 09/29/18 at 21:00; Status UNV Diltiazem HCl (Cardizem) 30 mg Q8 PEG ; Start 09/29/18 at 22:00; Status UNV Coded Allergies: No Known Allergy (Unverified , 09/29/18) Social History Smoking Status: Never smoker Exam/Review of Systems Vital Signs Vitals Vital Signs Date Temp Pulse Resp B/P (MAP) Pulse Ox O2 O2 Flow FiO2 Time Delivery Rate 09/29/18 97.2 78 18 104/59 99 Room Air 15:16 (74) SERAFIN GALE Sep 29, 2018 16:08
[2018-09-29 16:14] VITALS: Ht 170.2 cm; Wt 67.6 kg
[2018-09-29 16:28] VITALS: BP 109/59; PULSE 71; RESP 18
[2018-09-29] MEDS ORDERED: ALBUTEROL/IPRATROPIUM (NEB) 3 ML AMP HHN PRN (16:30)
[2018-09-29] MEDS ORDERED: METOPROLOL 5 MG INJ IV PRN (16:30)
[2018-09-29 20:23] VITALS: BP 109/81; PULSE 68; RESP 20
[2018-09-29] MEDS: ALBUTEROL/IPRATROPIUM (NEB) 3 ML AMP HHN SCH (20:34)
[2018-09-29] MEDS ORDERED: LEVETIRACETAM 500 MG TAB PO ONE (21:00)
[2018-09-29] MEDS: LATANOPROST 0.005% 2.5 ML OPH BOTH EYES SCH (21:00)
[2018-09-29] MEDS: SIROLIMUS 1 MG TAB PEG SCH (21:30)
[2018-09-29] MEDS: FAMOTIDINE 20 MG TAB GTB SCH (21:30)
[2018-09-29] MEDS: LEVETIRACETAM 500 MG TAB PEG SCH (21:32)
[2018-09-29] MEDS: TAMSULOSIN (SR) 0.4 MG CAP PO SCH (21:32)
[2018-09-29] MEDS: DILTIAZEM 30 MG TAB PEG SCH (21:32)
[2018-09-29] MEDS: APIXABAN 5 MG TABLET GTB SCH (21:32)
[2018-09-30 00:17] VITALS: BP 108/60; PULSE 71; RESP 20
--- NOTE | 2018-09-30 00:48 | CONS ---
DATE OF ADMISSION: 09/29/2018 DATE OF CONSULTATION: 09/29/2018 REASON FOR CONSULTATION: Atrial fibrillation. REQUESTING PHYSICIAN: Dr. Serafin aGle HISTORY OF PRESENT ILLNESS: Mr. Richey is a very pleasant 83-year-old male, history of atrial fibri llation, preserved EF by echo 05/2018, hypertension, hypothyroidism, diabetes mellitus, BPH, who had been discharged to a retirement facility for ongoing evaluation and treatment, CVA with residual left-sided deficit, nephrectomy, chronic dysphagia status post G-tube, who had been discharged to a chronic care facility and at the chronic care facility was found to suffer a seizure, and therefore t ransferred to the ER at [facility] where upon arrival, temperature of 97.9, blood p ressure 102/78, pulse 82, respiratory rate 20, satting 98%. The patient's labs revealed a white coun t 5.3, hemoglobin 13.7, platelet count of 134. Sodium 141, potassium 4.0, creatinine 0.8, BUN 39, T 30, ALT 17. UA negative. The patient underwent a head CT revealing encephalomalacia and gliosis i nvolving the inferior frontal lobe, lytic lesions of the right parietal and left frontal calvarium wi th erosion of inner table, moderate generalized cortical volume loss and a chest x-ray that revealed persistent patchy left lower lobe retrocardiac infiltrate with small to moderate left pleural effusio n. The patient's electrocardiogram revealed atrial fibrillation at a rate of 84, normal axis, normal intervals, nonspecific ST-T abnormalities, borderline anterior R progression. The patient subsequen tly has been admitted to the floor and since admit to the floor has been monitored on telemetry revea ling sinus rhythm. The patient is awake with son sitting near bed, does not respond much to question ing. PAST MEDICAL HISTORY: As above in HPI. MEDICATIONS CURRENTLY IN HOSPITAL: 1. Lasix 20 mg daily. 2. Synthroid 50 mcg daily. 3. Diltiazem 30 mg p.o. q.8. 4. Keppra 500 mg b.i.d. 5. Eliquis 2.5 b.i.d. 6. Carvedilol 6.25 mg p.o. b.i.d. 7. Pepcid 20 mg b.i.d. 8. Xalatan eyedrops. 9. Sirolimus 1 gram at bedtime. 10. Flomax 0.4 mg daily. 11. DuoNeb. 12. Zofran p.r.n. 13. Ativan p.r.n. ALLERGIES: NO KNOWN DRUG ALLERGIES. SOCIAL HISTORY: No current tobacco, EtOH or illicit drug use. FAMILY HISTORY: No sudden cardiac or early CAD. REVIEW OF SYSTEMS: As above in HPI. CONSTITUTIONAL: No fevers, chills. PULMONARY: No current signs of respiratory compromise. GASTROINTESTINAL: No vomiting, but dysphagia status post G-tube. GENITOURINARY: No hematuria. MUSCULOSKELETAL: Degenerative joint disease. PSYCHIATRIC: No documented psych history. NEUROLOGIC: Altered mental state, history of CVA, left-sided deficit. PHYSICAL EXAMINATION: VITAL SIGNS: Temperature 97.2, blood pressure 104/59, pulse 78, respiratory rate 18, satting 99%. GENERAL: The patient is alert, awake. Minimally communicative. NECK: JVP approximately 8 to 9 cm of water. CHEST: Fair air movement throughout. HEART: Irregularly irregular, I/ systolic murmur, nondisplaced PMI. ABDOMEN: Positive bowel sounds, soft. EXTREMITIES: No significant pitting edema, 1+ pulses, bilateral posterior tibial. LABORATORY DATA: No further labs for my review at this time. IMAGING STUDIES: As above in HPI. No further imaging for my review at this time. ECG: As above in HPI. No further electrocardiograms for my review at this time. IMPRESSION: 1. Atrial fibrillation, currently rate controlled, on Eliquis, but presenting with seizure. 2. Abnormal electrocardiogram with nonspecific ST and T wave abnormality, suggestive for acute coron lisa syndrome. 3. Hypertension, under reasonable control. 4. Hypothyroidism. 5. BPH. 6. Seizure, now on Keppra. 7. Lytic lesions on head CT, question etiology. 8. Hypothyroidism. 9. Congestive heart failure with preserved EF, on Lasix. RECOMMENDATIONS: 1. At this time, we would maintain the patient on telemetry monitoring to continue to follow rhythm and rates closely. 2. Continue the patient's baseline diltiazem and carvedilol as tolerated, following blood pressure a nd heart rate closely. 3. Continue the patient's Eliquis for prevention of thromboembolic complications in the setting of a trial fibrillation but must continue cautiously, given history of recent seizure. 4. Continue the patient's Keppra. 5. Ongoing neurological followup and workup of seizure. 6. Continue the patient's daily Lasix and follow volume status closely. 7. Continue the patient's immunosuppressant with Sirolimus at this time. 8. We would check serial EKGs, assess for ongoing changes, thus an EKG in the morning, EKG for any c omplaints of chest pain or change in rhythm. 9. Check a TSH to be sure subclinical hyperthyroidism is not contributing to bouts of atrial fibrill ation. 10. Complete the patient's workup for myocardial infarction to ensure this patient's EKG abnormaliti es are chronic in nature and not due to any invoked acute coronary syndrome in the setting of seizure . Thank you for allowing me to take part in the care of this patient. I will continue to follow very c losely with you. Further recommendations will be made as the patient progresses through his [employer] clinical [facility]. Dictated By: RORY FERGUSON/JULIOCESAR Conf#: [id number] DID#: [id number] CC: SERAFIN GALE MD;*EndCC*
[2018-09-30 04:05] VITALS: BP 138/75; PULSE 79; RESP 20
[2018-09-30] MEDS: ARTIFICIAL TEARS 15 ML OPH BOTH EYES SCH ×4 (04:31→21:16)
[2018-09-30] MEDS: LEVOTHYROXINE 50 MCG TAB GTB SCH (06:04)
[2018-09-30] MEDS: DILTIAZEM 30 MG TAB PEG SCH ×3 (06:04→21:04)
[2018-09-30 07:22] VITALS: BP 106/61; PULSE 75; RESP 20
[2018-09-30] MEDS: ALBUTEROL/IPRATROPIUM (NEB) 3 ML AMP HHN SCH ×3 (07:42→20:09)
[2018-09-30] MEDS: FUROSEMIDE 20 MG TAB GTB SCH (09:13)
[2018-09-30] MEDS: FAMOTIDINE 20 MG TAB GTB SCH ×2 (09:13→20:33)
[2018-09-30] MEDS: APIXABAN 5 MG TABLET GTB SCH ×2 (09:13→20:31)
[2018-09-30] MEDS: LEVETIRACETAM 500 MG TAB PEG SCH ×2 (09:14→20:32)
[2018-09-30 11:33] VITALS: BP 100/65; PULSE 63; RESP 20
--- NOTE | 2018-09-30 12:22 | CONS ---
Assessment/Plan Assessment/Plan Hospital Course (Demo Recall) IMPRESSION: 1. Atrial fibrillation, currently rate controlled, on Eliquis, but presenting with seizure. 2. Abnormal electrocardiogram with nonspecific ST and T wave abnormality, suggestive for acute coronary syndrome.-neg trop x 3 3. Hypertension, under reasonable control. 4. Hypothyroidism. 5. BPH. 6. Seizure, now on Keppra. 7. Lytic lesions on head CT, question etiology. 8. Hypothyroidism. 9. Congestive heart failure with preserved EF, on Lasix. Recc: -Tele -serial ecg's -will continue coreg and hold dilt given episode of violetta to 30's intermittent -Continue eliquis -check Free T4 to better assess current thyroid state -Continue lasix -Contineu synthroid Consultation Date/Type/Reason Admit Date/Time Sep 29, 2018 at 10:04 Initial Consult Date 09/29/18 Type of Consult Cardiology Reason for Consultation AF Requesting Provider: SERAFIN GALE Date/Time of Note DATE: 09/30/18 TIME: 12:18 Exam/Review of Systems Vital Signs Vitals Vital Signs Date Temp Pulse Resp B/P (MAP) Pulse Ox O2 O2 Flow FiO2 Time Delivery Rate 09/30/18 97.9 63 20 100/65 99 Nasal 11:33 (77) Cannula 09/30/18 1.0 08:00 Exam Exam Review of Systems: CONSTITUTIONAL: No fevers, chills. PULMONARY: No sob CARDIOVASCULAR: No chest pain/palpitations GASTROINTESTINAL: No nausea/vomiting. GENITOURINARY: No hematuria/dysuria. MUSCULOSKELETAL: No myagias/arthalgias. PSYCHIATRIC: The patient denies depression. NEUROLOGIC: No weakness Constitutional: alert Psych: no complaints Head: normocephalic ENMT: mucosa pink and moist Neck: supple, jvd (9 cm water) Respiratory: clear to auscultation Cardiovascular: irregular rhythm Gastrointestinal: soft, non-tender Musculoskeletal: muscle weakness (generalized) Extremities: edema (trace/B) Neurological: other (No focal deficits) Labs Result Diagram: 09/30/18 0559 09/30/18 0559 Results 24hrs Laboratory Tests Test 09/29/18 18:39 09/30/18 00:30 09/30/18 05:59 Troponin I < 0.012 < 0.012 < 0.012 White Blood Count 5.4 Red Blood Count 4.05 L Hemoglobin 12.6 L Hematocrit 40.7 L Mean Corpuscular Volume 100.5 Mean Corpuscular Hemoglobin 31.1 Mean Corpuscular Hemoglobin Concent 31.0 L Red Cell Distribution Width 13.4 Platelet Count 131 L Mean Platelet Volume 13.3 H Immature Granulocytes % 0.200 Neutrophils % 67.2 Lymphocytes % 14.0 L Monocytes % 11.2 H Eosinophils % 7.0 Basophils % 0.4 Nucleated Red Blood Cells % 0.0 Immature Granulocytes # 0.010 Neutrophils # 3.7 Lymphocytes # 0.8 Monocytes # 0.6 Eosinophils # 0.4 Basophils # 0.0 Nucleated Red Blood Cells # 0.0 Sodium Level 142 Potassium Level 4.2 Chloride Level 96 L Carbon Dioxide Level 37 H Anion Gap 9 Blood Urea Nitrogen 38 H Creatinine 0.76 Est Glomerular Filtrat Rate mL/min Glucose Level 155 Hemoglobin A1c 5.5 Calcium Level 9.9 Magnesium Level 2.3 Total Bilirubin 0.6 Direct Bilirubin 0.00 Indirect Bilirubin 0.6 Aspartate Amino Transf (AST/SGOT) 29 Alanine Aminotransferase (ALT/SGPT) 20 Alkaline Phosphatase 57 Total Protein 7.2 # Albumin 3.9 Globulin 3.30 H Albumin/Globulin Ratio 1.18 Triglycerides Level 203 H Cholesterol Level 168 LDL Cholesterol, Calculated 95 HDL Cholesterol 32 Cholesterol/HDL Ratio 5.2 Thyroid Stimulating Hormone (TSH) 6.860 H Medications Medications Current Medications IV Flush (NS 3 ml) 3 ml PER PROTOCOL IV ; Start 09/29/18 at 15:30 Lorazepam (Ativan) 2 mg Q10MIN PRN IV seizure; Start 09/29/18 at 15:30 Ondansetron HCl (Zofran Inj) 4 mg Q6H PRN IV NAUSEA/VOMITING; Start 09/29/18 at 15:30 Acetaminophen (Tylenol Tab) 650 mg Q6H PRN PO .PAIN 1-3 OR TEMP; Start 09/29/18 at 15:30 Acetaminophen/ Hydrocodone Bitart ([place] (5/325)) 1 tab Q6H PRN PO .PAIN 4-6; Start 09/29/18 at 15:30 Morphine Sulfate (morphine) 2 mg Q4H PRN IV .PAIN 7-10; Start 09/29/18 at 15:30 Levetiracetam (Keppra) 500 mg BID PEG Last administered on 09/30/18at 09:14; Admin Dose 500 MG; Start 09/29/18 at 21:00 Apixaban (Eliquis) 2.5 mg BID GTB Last administered on 09/30/18 09:13; Admin Dose 2.5 MG; Start 09/29/18 at 21:00 Carvedilol (Coreg) 6.25 mg BID GTB Last administered on 09/30/18 09:13; Admin Dose 6.25 MG; Start 09/29/18 at 21:00 Famotidine (Pepcid) 20 mg BID GTB Last administered on 09/30/18 09:13; Admin Dose 20 MG; Start 09/29/18 at 21:00 Furosemide (Lasix) 20 mg DAILY GTB Last administered on 09/30/18 09:13; Admin Dose 20 MG; Start 09/30/18 at 09:00 Latanoprost (Xalatan) 1 drop QHS BOTH EYES ; Start 09/29/18 at 21:00 Levothyroxine Sodium (Synthroid) 50 mcg BEFORE BREAKFAST GTB Last administered on 09/30/18 06:04; Admin Dose 50 MCG; Start 09/30/18 at 07:00 Eye Lubricant (Artificial Tears Oph) 1 drop Q6H BOTH EYES Last administered on 09/30/18 09:18; Admin Dose 1 DROP; Start 09/29/18 at 16:00 Sirolimus (Rapamune) 1 mg QHS PEG Last administered on 09/29/18 21:30; Admin Dose 1 MG; Start 09/29/18 at 21:00 Tamsulosin HCl (Flomax) 0.4 mg QPM PO Last administered on 09/29/18 21:32; Admin Dose 0.4 MG; Start 09/29/18 at 21:00 Diltiazem HCl (Cardizem) 30 mg Q8 PEG Last administered on 09/30/18 06:04; Admin Dose 30 MG; Start 09/29/18 at 22:00 Albuterol/ Ipratropium (Duoneb) 3 ml Q6HWA RESP THERAPY HHN Last administered on 09/30/18 07:42; Admin Dose 3 ML; Start 09/29/18 at 20:00 Albuterol/ Ipratropium (Duoneb) 3 ml Q2H RESP THERAPY PRN HHN shortness of breath; Start 09/29/18 at 16:30 Metoprolol Tartrate (Lopressor) 5 mg Q4H PRN IV HR>110 Hold SBP<100; Start 09/29/18 at 16:30 RORY JANSEN Sep 30, 2018 12:22
--- NOTE | 2018-09-30 14:04 | PN ---
Date/Time of Note Date/Time of Note DATE: 09/30/18 TIME: 14:03 Objective Vitals Vital Signs Date Temp Pulse Resp B/P (MAP) Pulse Ox O2 O2 Flow FiO2 Time Delivery Rate 09/30/18 97.9 63 20 100/65 99 Nasal 11:33 (77) Cannula 09/30/18 1.0 08:00 Results Result Diagram: 09/30/18 0559 09/30/18 0559 Medications Medications Current Medications IV Flush (NS 3 ml) 3 ml PER PROTOCOL IV ; Start 09/29/18 at 15:30 Lorazepam (Ativan) 2 mg Q10MIN PRN IV seizure; Start 09/29/18 at 15:30 Ondansetron HCl (Zofran Inj) 4 mg Q6H PRN IV NAUSEA/VOMITING; Start 09/29/18 at 15:30 Acetaminophen (Tylenol Tab) 650 mg Q6H PRN PO .PAIN 1-3 OR TEMP; Start 09/29/18 at 15:30 Acetaminophen/ Hydrocodone Bitart ([place] (5/325)) 1 tab Q6H PRN PO .PAIN 4-6; Start 09/29/18 at 15:30 Morphine Sulfate (morphine) 2 mg Q4H PRN IV .PAIN 7-10; Start 09/29/18 at 15:30 Levetiracetam (Keppra) 500 mg BID PEG Last administered on 09/30/18at 09:14; Admin Dose 500 MG; Start 09/29/18 at 21:00 Apixaban (Eliquis) 2.5 mg BID GTB Last administered on 09/30/18at 09:13; Admin Dose 2.5 MG; Start 09/29/18 at 21:00 Carvedilol (Coreg) 6.25 mg BID GTB Last administered on 09/30/18at 09:13; Admin Dose 6.25 MG; Start 09/29/18 at 21:00 Famotidine (Pepcid) 20 mg BID GTB Last administered on 09/30/18at 09:13; Admin Dose 20 MG; Start 09/29/18 at 21:00 Furosemide (Lasix) 20 mg DAILY GTB Last administered on 09/30/18at 09:13; Admin Dose 20 MG; Start 09/30/18 at 09:00 Latanoprost (Xalatan) 1 drop QHS BOTH EYES ; Start 09/29/18 at 21:00 Levothyroxine Sodium (Synthroid) 50 mcg BEFORE BREAKFAST GTB Last administered on 09/30/18 06:04; Admin Dose 50 MCG; Start 09/30/18 at 07:00 Eye Lubricant (Artificial Tears Oph) 1 drop Q6H BOTH EYES Last administered on 09/30/18 09:18; Admin Dose 1 DROP; Start 09/29/18 at 16:00 Sirolimus (Rapamune) 1 mg QHS PEG Last administered on 09/29/18at 21:30; Admin Dose 1 MG; Start 09/29/18 at 21:00 Tamsulosin HCl (Flomax) 0.4 mg QPM PO Last administered on 09/29/18 21:32; Admin Dose 0.4 MG; Start 09/29/18 at 21:00 Diltiazem HCl (Cardizem) 30 mg Q8 PEG Last administered on 09/30/18 06:04; Admin Dose 30 MG; Start 09/29/18 at 22:00 Albuterol/ Ipratropium (Duoneb) 3 ml Q6HWA RESP THERAPY HHN Last administered on 09/30/18 07:42; Admin Dose 3 ML; Start 09/29/18 at 20:00 Albuterol/ Ipratropium (Duoneb) 3 ml Q2H RESP THERAPY PRN HHN shortness of breath; Start 09/29/18 at 16:30 Metoprolol Tartrate (Lopressor) 5 mg Q4H PRN IV HR>110 Hold SBP<100; Start 09/29/18 at 16:30 VTE Prophylaxis Risk score (from Nsg)>0 risk: 7 SCD applied (from Nsg): No SCD contraindication: other Lines/Catheters IV Catheter Type: Camejo in Place: No Assessment/Plan Hospital Course Subjective No acute changes overnight, patient was asleep and easily awoken. Objective Physical exam General: Patient is laying in bed and answers questions appropriately, but slowly and some garbled speech Mentation: Patient is alert and oriented Head: Normocephalic atraumatic Eyes: EOMI, pupils reactive to light Neck: Supple, nontender, midline Respiratory: Clear to auscultation bilaterally Cardiovascular: regular rate, no obvious murmurs Gastrointestinal: non-tender to palpation, bowel sounds heard. Neurological: Only able to squeeze lightly and left upper extremity, able to move left lower extremity slightly with toes, right lower extremity has slightly more movement than left and right upper extremity has full movement with good front end technician strength Skin: No new skin lesions Assessment and plan New onset seizure -Patient seen by neurology, due to abnormality in the cortex, recommends patient to be on Keppra twice a day -We will follow, was loaded with Keppra in the ER -As needed Ativan for additional seizure Lytic lesion in the skull -Oncology consulted, questionable multiple myeloma -Patient does have mildly elevated calcium Atrial fibrillation -Continue home medications as well as Eliquis -Cardiology has been consulted Chest pain -Cardiology consulted, no more chest pain at this time, even questionable hi story of chest pain COPD -Nebulizers History of nephrectomy and kidney repair transplant -Continue on serial limits BPH Continue Flomax History of CVA with residual left-sided weakness -Stable, neurology following Chronic dysphasia -Patient with PEG tube Disposition -Continue work-up from oncology, neurology and cardiology also following. SERAFIN GALE Sep 30, 2018 14:04
[2018-09-30 15:13] VITALS: BP 109/59; PULSE 68; RESP 18
--- NOTE | 2018-09-30 15:22 | CONS ---
Assessment/Plan Assessment/Plan Hospital Course (Demo Recall) 83 yo admitted with seizure, CT Head showed skull lesion we are asked to see for myeloma w/u check SPEP/IF light chains check LDH and beta 2 microglibulin if these results are abnormal, may need skeletal survey and bone marrow biopsy Consultation Date/Type/Reason Admit Date/Time Sep 29, 2018 at 10:04 Date/Time of Note DATE: 09/30/18 TIME: 13:49 Hx of Present Illness 83 yo with a past medical history significant for atrial fibrillation, COPD, chronic debility, CVA with residual left-sided deficit, nephrectomy, hy pothyroidism, BPH,'s chronic dysphasia, chronic hypoxia who presents to [facility] for new onset seizure. He was seen by neurology. Has had w/u including CT Head showing: Lytic lesions of the right parietal and left frontal calvarium with erosion of the inner table. Considerations include multiple myeloma, osseous metastasis, and metabolic disorder. We are asked to see him for workup of this. He has mild macrocytosis. Constitutional: no complaints, improved Eyes: no complaints ENT: no complaints Respiratory: no complaints Cardiovascular: no complaints Gastrointestinal: no complaints Genitourinary: no complaints Musculoskeletal: no complaints Skin: no complaints Neurologic: no complaints Endocrine: no complaints Lymphatic: no complaints Psychological: no complaints, nl mood/affect Immunologic: no complaints Past Medical History Home Meds Reported Medications [Diltiazem Hcl] No Conflict Check, 2.5 ML GTB Q8H DILTIAZEM HCL SOLUTION 12MG/ML HOLD IF SBP<110 OR MN<60 09/29/18 Ondansetron Hcl* (Zofran*) 4 Mg Tab, 4 MG GTB Q6H PRN for NAUSEA AND OR VOMITING, TAB 09/29/18 Latanoprost (Latanoprost) 2.5 Ml Drops, 1 DROP BOTH EYES QHS, #1 BOTTLE 09/29/18 Famotidine* (Famotidine*) 20 Mg Tablet, 20 MG GTB BID, #60 TAB 09/29/18 Furosemide* (Furosemide*) 20 Mg Tablet, 20 MG GTB DAILY, #60 TAB 09/29/18 Carvedilol* (Coreg*) 6.25 Mg Tablet, 6.25 MG GTB BID, #60 TAB HOLD FOR SBP<110 OR MN<60 09/29/18 Polyvinyl Alcohol* ([place] Tears*) 1.4% - 15 Ml Drops, 1 DROP BOTH EYES Q6H, #1 BOTTLE 09/29/18 Albuterol Sulfate* (Albuterol Sulfate* Neb) 0.083%-3 Ml Neb, 1.25 MG NEB Q6H PRN for WHEEZING AND SOB, #30 VIAL GIVE WITH ACETYLCYSTEINE SOLUTION 09/29/18 Acetylcysteine* (Mucomyst*) 4 Ml Soln, 2 ML NEB Q6H PRN for COPD, EA GIVE WITH ALBUTEROL 09/29/18 Acetaminophen* (Acetaminophen*) 650 Mg Tablet, 650 MG GTB Q4H PRN for PAIN LEVEL 1-07/09, #30 TAB 09/29/18 Tramadol HCl (Tramadol HCl) 50 Mg Tablet, 50 MG G-TUBE Q6H PRN for PAIN LEVEL 6- 12/09, #120 TAB 06/11/18 Sirolimus* (Rapamune*) 1 Mg Tablet, 1 MG G-TUBE QHS, TAB 06/11/18 Levothyroxine Sodium* (Levoxyl*) 50 Mcg Tablet, 50 MCG GTB BEFORE BREAKFAST, #30 TAB 06/11/18 Tamsulosin Hcl* (Tamsulosin Hcl*) 0.4 Mg Cap.er.24h, 0.4 MG G-TUBE QPM, CAP 06/11/18 Apixaban* (Eliquis*) 2.5 Mg Tablet, 2.5 MG GTB BID, TAB 06/11/18 Discontinued Reported Medications Tiotropium [place]* (Spiriva*) 18 Mcg Cap.w.dev, 1 CAP INHALATION DAILY, #30 CAP 06/11/18 Sotalol Hcl* (Betapace*) 80 Mg Tab, 40 MG G-TUBE BID, TAB 06/11/18 Latanoprost (Latanoprost) 2.5 Ml Drops, 1 DROP BOTH EYES QHS, #1 BOTTLE 06/11/18 Guaifenesin* (Refenesen*) 400 Mg Tablet, 400 MG G-TUBE Q8H PRN for COUGH, TAB 06/11/18 Polyvinyl Alcohol (Tears Again) 15 Ml Drops, 15 ML OP PRN PRN for DRY EYES, BOTTLE 06/11/18 Amlodipine Besylate* (Amlodipine Besylate*) 10 Mg Tablet, 10 MG G-TUBE DAILY, #30 TAB 06/11/18 Acetaminophen* (Acetaminophen* Susp) 325 Mg/10.15 Ml Solution, 640 MG G-TUBE Q4H PRN for PAIN OR TEMP ABOVE 38C, ML 06/11/18 Medications Current Medications IV Flush (NS 3 ml) 3 ml PER PROTOCOL IV ; Start 09/29/18 at 15:30 Lorazepam (Ativan) 2 mg Q10MIN PRN IV seizure; Start 09/29/18 at 15:30 Ondansetron HCl (Zofran Inj) 4 mg Q6H PRN IV NAUSEA/VOMITING; Start 09/29/18 at 15:30 Acetaminophen (Tylenol Tab) 650 mg Q6H PRN PO .PAIN 1-3 OR TEMP; Start 09/29/18 at 15:30 Acetaminophen/ Hydrocodone Bitart ([place] (5/325)) 1 tab Q6H PRN PO .PAIN 4-6; Start 09/29/18 at 15:30 Morphine Sulfate (morphine) 2 mg Q4H PRN IV .PAIN 7-10; Start 09/29/18 at 15:30 Levetiracetam (Keppra) 500 mg BID PEG Last administered on 09/30/18 09:14; Admin Dose 500 MG; Start 09/29/18 at 21:00 Apixaban (Eliquis) 2.5 mg BID GTB Last administered on 09/30/18 09:13; Admin Dose 2.5 MG; Start 09/29/18 at 21:00 Carvedilol (Coreg) 6.25 mg BID GTB Last administered on 09/30/18 09:13; Admin Dose 6.25 MG; Start 09/29/18 at 21:00 Famotidine (Pepcid) 20 mg BID GTB Last administered on 09/30/18 09:13; Admin Dose 20 MG; Start 09/29/18 at 21:00 Furosemide (Lasix) 20 mg DAILY GTB Last administered on 09/30/18 09:13; Admin Dose 20 MG; Start 09/30/18 at 09:00 Latanoprost (Xalatan) 1 drop QHS BOTH EYES ; Start 09/29/18 at 21:00 Levothyroxine Sodium (Synthroid) 50 mcg BEFORE BREAKFAST GTB Last administered on 09/30/18at 06:04; Admin Dose 50 MCG; Start 09/30/18 at 07:00 Eye Lubricant (Artificial Tears Oph) 1 drop Q6H BOTH EYES Last administered on 09/30/18at 09:18; Admin Dose 1 DROP; Start 09/29/18 at 16:00 Sirolimus (Rapamune) 1 mg QHS PEG Last administered on 09/29/18at 21:30; Admin Dose 1 MG; Start 09/29/18 at 21:00 Tamsulosin HCl (Flomax) 0.4 mg QPM PO Last administered on 09/29/18at 21:32; Admin Dose 0.4 MG; Start 09/29/18 at 21:00 Diltiazem HCl (Cardizem) 30 mg Q8 PEG Last administered on 09/30/18at 06:04; Admin Dose 30 MG; Start 09/29/18 at 22:00 Albuterol/ Ipratropium (Duoneb) 3 ml Q6HWA RESP THERAPY HHN Last administered on 09/30/18at 07:42; Admin Dose 3 ML; Start 09/29/18 at 20:00 Albuterol/ Ipratropium (Duoneb) 3 ml Q2H RESP THERAPY PRN HHN shortness of breath; Start 09/29/18 at 16:30 Metoprolol Tartrate (Lopressor) 5 mg Q4H PRN IV HR>110 Hold SBP<100; Start 09/29/18 at 16:30 Allergies: Coded Allergies: No Known Allergy (Unverified , 09/29/18) Social History Smoking Status: Former smoker Exam/Review of Systems Exam Vitals Vital Signs Date Temp Pulse Resp B/P (MAP) Pulse Ox O2 O2 Flow FiO2 Time Delivery Rate 09/30/18 97.9 63 20 100/65 99 Nasal 11:33 (77) Cannula 09/30/18 1.0 08:00 Constitutional: alert, oriented, well developed Psych: no complaints, nl mood/affect Head: normocephalic, atraumatic Eyes: nl conjunctiva, EOMI, nl lids, nl sclera, PERRL ENMT: nl external ears & nose, nl lips & teeth, nl nasal mucosa & septum Neck: supple, non-tender Respiratory: clear to auscultation, normal air movement Gastrointestinal: soft, nl liver, spleen, non-tender Results Result Diagram: 09/30/18 0559 09/30/18 0559 Results 24hrs Laboratory Tests Test 09/29/18 18:39 09/30/18 00:30 09/30/18 05:59 Troponin I < 0.012 < 0.012 < 0.012 White Blood Count 5.4 Red Blood Count 4.05 L Hemoglobin 12.6 L Hematocrit 40.7 L Mean Corpuscular Volume 100.5 Mean Corpuscular Hemoglobin 31.1 Mean Corpuscular Hemoglobin Concent 31.0 L Red Cell Distribution Width 13.4 Platelet Count 131 L Mean Platelet Volume 13.3 H Immature Granulocytes % 0.200 Neutrophils % 67.2 Lymphocytes % 14.0 L Monocytes % 11.2 H Eosinophils % 7.0 Basophils % 0.4 Nucleated Red Blood Cells % 0.0 Immature Granulocytes # 0.010 Neutrophils # 3.7 Lymphocytes # 0.8 Monocytes # 0.6 Eosinophils # 0.4 Basophils # 0.0 Nucleated Red Blood Cells # 0.0 Sodium Level 142 Potassium Level 4.2 Chloride Level 96 L Carbon Dioxide Level 37 H Anion Gap 9 Blood Urea Nitrogen 38 H Creatinine 0.76 Est Glomerular Filtrat Rate mL/min Glucose Level 155 Hemoglobin A1c 5.5 Calcium Level 9.9 Magnesium Level 2.3 Total Bilirubin 0.6 Direct Bilirubin 0.00 Indirect Bilirubin 0.6 Aspartate Amino Transf (AST/SGOT) 29 Alanine Aminotransferase (ALT/SGPT) 20 Alkaline Phosphatase 57 Total Protein 7.2 # Albumin 3.9 Globulin 3.30 H Albumin/Globulin Ratio 1.18 Triglycerides Level 203 H Cholesterol Level 168 LDL Cholesterol, Calculated 95 HDL Cholesterol 32 Cholesterol/HDL Ratio 5.2 Thyroid Stimulating Hormone (TSH) 6.860 H Medications Medication Current Medications IV Flush (NS 3 ml) 3 ml PER PROTOCOL IV ; Start 09/29/18 at 15:30 Lorazepam (Ativan) 2 mg Q10MIN PRN IV seizure; Start 09/29/18 at 15:30 Ondansetron HCl (Zofran Inj) 4 mg Q6H PRN IV NAUSEA/VOMITING; Start 09/29/18 at 15:30 Acetaminophen (Tylenol Tab) 650 mg Q6H PRN PO .PAIN 1-3 OR TEMP; Start 09/29/18 at 15:30 Acetaminophen/ Hydrocodone Bitart ([place] (5/325)) 1 tab Q6H PRN PO .PAIN 4-6; Start 09/29/18 at 15:30 Morphine Sulfate (morphine) 2 mg Q4H PRN IV .PAIN 7-10; Start 09/29/18 at 15:30 Levetiracetam (Keppra) 500 mg BID PEG Last administered on 09/30/18 09:14; Admin Dose 500 MG; Start 09/29/18 at 21:00 Apixaban (Eliquis) 2.5 mg BID GTB Last administered on 09/30/18 09:13; Admin Dose 2.5 MG; Start 09/29/18 at 21:00 Carvedilol (Coreg) 6.25 mg BID GTB Last administered on 09/30/18 09:13; Admin Dose 6.25 MG; Start 09/29/18 at 21:00 Famotidine (Pepcid) 20 mg BID GTB Last administered on 09/30/18 09:13; Admin Dose 20 MG; Start 09/29/18 at 21:00 Furosemide (Lasix) 20 mg DAILY GTB Last administered on 09/30/18 09:13; Admin Dose 20 MG; Start 09/30/18 at 09:00 Latanoprost (Xalatan) 1 drop QHS BOTH EYES ; Start 09/29/18 at 21:00 Levothyroxine Sodium (Synthroid) 50 mcg BEFORE BREAKFAST GTB Last administered on 09/30/18 06:04; Admin Dose 50 MCG; Start 09/30/18 at 07:00 Eye Lubricant (Artificial Tears Oph) 1 drop Q6H BOTH EYES Last administered on 09/30/18 09:18; Admin Dose 1 DROP; Start 09/29/18 at 16:00 Sirolimus (Rapamune) 1 mg QHS PEG Last administered on 09/29/18 21:30; Admin Dose 1 MG; Start 09/29/18 at 21:00 Tamsulosin HCl (Flomax) 0.4 mg QPM PO Last administered on 09/29/18 21:32; Admin Dose 0.4 MG; Start 09/29/18 at 21:00 Diltiazem HCl (Cardizem) 30 mg Q8 PEG Last administered on 09/30/18 06:04; Admin Dose 30 MG; Start 7/31/19 at 22:00 Albuterol/ Ipratropium (Duoneb) 3 ml Q6HWA RESP THERAPY HHN Last administered on 09/30/18at 07:42; Admin Dose 3 ML; Start 09/29/18 at 20:00 Albuterol/ Ipratropium (Duoneb) 3 ml Q2H RESP THERAPY PRN HHN shortness of breath; Start 09/29/18 at 16:30 Metoprolol Tartrate (Lopressor) 5 mg Q4H PRN IV HR>110 Hold SBP<100; Start 09/29/18 at 16:30 ROMELIA JACKMAN Sep 30, 2018 13:59
[2018-09-30 20:08] VITALS: BP 122/72; PULSE 79; RESP 18
[2018-09-30] MEDS: TAMSULOSIN (SR) 0.4 MG CAP PO SCH (20:32)
[2018-09-30] MEDS: SIROLIMUS 1 MG TAB PEG SCH (20:33)
[2018-09-30] MEDS: BALSAM PERU/CASTOR OIL 60 GM TUBE TOP SCH (20:37)
[2018-09-30] MEDS: LATANOPROST 0.005% 2.5 ML OPH BOTH EYES SCH (20:42)
--- NOTE | 2018-09-30 20:55 | RADRPT ---
Vent Rate: 71 bpm RR Interval: 832 msec NH Interval: [id number] msec QRS Duration: 89 msec QT Interval: 420 msec QTC Interval: 460 msec P-R-T [place]: [id number] - 49 - 52 degrees Atrial fibrillation...V-rate 60- 82, irreg A-activity Anterior infarct, old...Q >40mS, abnormal ST-T, V2-V5 Electronically Signed By: Vignesh Lay
[2018-10-01] VITALS: BP 108/68; PULSE 77; RESP 18
[2018-10-01] MEDS: ARTIFICIAL TEARS 15 ML OPH BOTH EYES SCH ×4 (03:26→21:07)
[2018-10-01 05:08] VITALS: BP 109/65; PULSE 78; RESP 18
[2018-10-01] MEDS: DILTIAZEM 30 MG TAB PEG SCH (05:49)
[2018-10-01] MEDS: LEVOTHYROXINE 50 MCG TAB GTB SCH (06:00)
[2018-10-01 07:12] VITALS: BP 116/67; PULSE 81; RESP 18
[2018-10-01] MEDS: ALBUTEROL/IPRATROPIUM (NEB) 3 ML AMP HHN SCH ×3 (08:16→19:14)
[2018-10-01] MEDS: FAMOTIDINE 20 MG TAB GTB SCH ×2 (09:41→20:22)
[2018-10-01] MEDS: FUROSEMIDE 20 MG TAB GTB SCH (09:42)
[2018-10-01] MEDS: LEVETIRACETAM 500 MG TAB PEG SCH ×2 (09:42→20:22)
[2018-10-01] MEDS: BALSAM PERU/CASTOR OIL 60 GM TUBE TOP SCH ×2 (09:43→20:25)
[2018-10-01] MEDS: APIXABAN 5 MG TABLET GTB SCH ×2 (09:43→20:22)
[2018-10-01 11:08] VITALS: BP 96/55; PULSE 70; RESP 18
--- NOTE | 2018-10-01 14:01 | CONS ---
Assessment/Plan Assessment/Plan Hospital Course (Demo Recall) 83 yo admitted with seizure, CT Head showed skull lesion we are asked to see for myeloma w/u SPEP pending immunofixation normal may consider MRI to better evaluate skull lesions if these results are abnormal, may need bone marrow biopsy Consultation Date/Type/Reason Admit Date/Time Sep 29, 2018 at 10:04 Initial Consult Date Requesting Provider: SERAFIN GALE Date/Time of Note DATE: 10/01/18 TIME: 13:59 Exam/Review of Systems Exam Vitals Vital Signs Date Temp Pulse Resp B/P (MAP) Pulse Ox O2 O2 Flow FiO2 Time Delivery Rate 10/01/18 91 18 95 13:00 10/01/18 98.0 96/55 (69) Nasal 11:08 Cannula 10/01/18 21 08:11 09/30/18 1.0 19:15 Intake and Output 09/30/18 09/30/18 10/01/18 1515:00 23:00 07:00 IntakeIntake Total 1080 ml OutputOutput Total 1 ml 3 ml 1 ml BalanceBalance -1 ml -3 ml 1079 ml Results Result Diagram: 10/01/18 0642 10/01/18 0642 Results 24hrs Laboratory Tests Test 09/30/18 14:35 10/01/18 06:42 Total Protein (PEP) 6.8 Albumin (PEP) Pending Ikqyx-6-Tojezkqfu Pending Xfniz-9-Eoiswcwig Pending Beta Globulins Pending Mbvw-6-Cdgcdrhpujtni Pending Gamma Globulins Pending Protein Electrophoresis Interpret Pending White Blood Count 6.7 # Red Blood Count 4.17 L Hemoglobin 12.8 L Hematocrit 41.5 L Mean Corpuscular Volume 99.5 Mean Corpuscular Hemoglobin 30.7 Mean Corpuscular Hemoglobin Concent 30.8 L Red Cell Distribution Width 13.5 Platelet Count 130 L Mean Platelet Volume 13.0 H Immature Granulocytes % 0.300 Neutrophils % 70.9 Lymphocytes % 11.4 L Monocytes % 11.0 Eosinophils % 5.9 Basophils % 0.5 Nucleated Red Blood Cells % 0.0 Immature Granulocytes # 0.020 Neutrophils # 4.7 Lymphocytes # 0.8 Monocytes # 0.7 Eosinophils # 0.4 Basophils # 0.0 Nucleated Red Blood Cells # 0.0 Sodium Level 139 Potassium Level 3.9 Chloride Level 94 L Carbon Dioxide Level 39 H Anion Gap 6 Blood Urea Nitrogen 39 H Creatinine 0.90 Est Glomerular Filtrat Rate mL/min Glucose Level 175 Calcium Level 9.6 Phosphorus Level 3.5 Magnesium Level 2.2 Medications Medication Current Medications IV Flush (NS 3 ml) 3 ml PER PROTOCOL IV ; Start 09/29/18 at 15:30 Lorazepam (Ativan) 2 mg Q10MIN PRN IV seizure; Start 09/29/18 at 15:30 Ondansetron HCl (Zofran Inj) 4 mg Q6H PRN IV NAUSEA/VOMITING; Start 09/29/18 at 15:30 Acetaminophen (Tylenol Tab) 650 mg Q6H PRN PO .PAIN 1-3 OR TEMP; Start 09/29/18 at 15:30 Acetaminophen/ Hydrocodone Bitart ([place] (5/325)) 1 tab Q6H PRN PO .PAIN 4-6; Start 09/29/18 at 15:30 Morphine Sulfate (morphine) 2 mg Q4H PRN IV .PAIN 7-10; Start 09/29/18 at 15:30 Levetiracetam (Keppra) 500 mg BID PEG Last administered on 10/01/18 09:42; Admin Dose 500 MG; Start 09/29/18 at 21:00 Apixaban (Eliquis) 2.5 mg BID GTB Last administered on 10/01/18 09:43; Admin Dose 2.5 MG; Start 09/29/18 at 21:00 Carvedilol (Coreg) 6.25 mg BID GTB Last administered on 10/01/18 09:42; Admin Dose 6.25 MG; Start 09/29/18 at 21:00 Famotidine (Pepcid) 20 mg BID GTB Last administered on 10/01/18 09:41; Admin Dose 20 MG; Start 09/29/18 at 21:00 Furosemide (Lasix) 20 mg DAILY GTB Last administered on 10/01/18 09:42; Admin Dose 20 MG; Start 09/30/18 at 09:00 Latanoprost (Xalatan) 1 drop QHS BOTH EYES ; Start 09/29/18 at 21:00 Levothyroxine Sodium (Synthroid) 50 mcg BEFORE BREAKFAST GTB Last administered on 10/01/18at 06:00; Admin Dose 50 MCG; Start 09/30/18 at 07:00 Eye Lubricant (Artificial Tears Oph) 1 drop Q6H BOTH EYES Last administered on 10/01/18 09:43; Admin Dose 1 DROP; Start 09/29/18 at 16:00 Sirolimus (Rapamune) 1 mg QHS PEG Last administered on 09/30/18 20:33; Admin Dose 1 MG; Start 09/29/18 at 21:00 Tamsulosin HCl (Flomax) 0.4 mg QPM PO Last administered on 09/30/18 20:32; Admin Dose 0.4 MG; Start 09/29/18 at 21:00 Diltiazem HCl (Cardizem) 30 mg Q8 PEG Last administered on 09/30/18at 15:50; Admin Dose 30 MG; Start 09/29/18 at 22:00 Albuterol/ Ipratropium (Duoneb) 3 ml Q6HWA RESP THERAPY HHN Last administered on 10/01/18at 13:00; Admin Dose 3 ML; Start 09/29/18 at 20:00 Albuterol/ Ipratropium (Duoneb) 3 ml Q2H RESP THERAPY PRN HHN shortness of breath; Start 09/29/18 at 16:30 Metoprolol Tartrate (Lopressor) 5 mg Q4H PRN IV HR>110 Hold SBP<100; Start 09/29/18 at 16:30 ROMELIA JACKMAN Oct 01, 2018 14:01
--- NOTE | 2018-10-01 14:02 | CONS ---
Assessment/Plan Assessment/Plan Hospital Course (Demo Recall) IMPRESSION: 1. Atrial fibrillation, currently rate controlled, on Eliquis, but presenting with seizure. 2. Abnormal electrocardiogram with nonspecific ST and T wave abnormality, suggestive for acute coronary syndrome.-neg trop x 3 3. Hypertension, under reasonable control. 4. Hypothyroidism. 5. BPH. 6. Seizure, now on Keppra. 7. Lytic lesions on head CT, question etiology. 8. Hypothyroidism. 9. Congestive heart failure with preserved EF, on Lasix. Recc: -Tele -serial ecg's -will continue coreg and will continue to hold dilt given episode of [place] to 30's intermittent. No recurrence with holding of CCB at this time -Continue eliquis -check Free T4 to better assess current thyroid state -Continue lasix -Contineu synthroid Consultation Date/Type/Reason Admit Date/Time Sep 29, 2018 at 10:04 Initial Consult Date 09/29/18 Type of Consult Cardiology Reason for Consultation AF Requesting Provider: SERAFIN GALE Date/Time of Note DATE: 10/01/18 TIME: 13:58 Exam/Review of Systems Vital Signs Vitals Vital Signs Date Temp Pulse Resp B/P (MAP) Pulse Ox O2 O2 Flow FiO2 Time Delivery Rate 10/01/18 91 18 95 13:00 10/01/18 98.0 96/55 (69) Nasal 11:08 Cannula 10/01/18 21 08:11 09/30/18 1.0 19:15 Intake and Output 09/30/18 09/30/18 10/01/18 1515:00 23:00 07:00 IntakeIntake Total 1080 ml OutputOutput Total 1 ml 3 ml 1 ml BalanceBalance -1 ml -3 ml 1079 ml Exam Exam Review of Systems: CONSTITUTIONAL: No fevers, chills. PULMONARY: No sob CARDIOVASCULAR: No chest pain/palpitations GASTROINTESTINAL: No nausea/vomiting. GENITOURINARY: No hematuria/dysuria. MUSCULOSKELETAL: No myagias/arthalgias. PSYCHIATRIC: The patient denies depression. NEUROLOGIC: lethargic Constitutional: other (lethargic) Psych: no complaints Head: normocephalic ENMT: mucosa pink and moist Neck: supple, jvd (9 cm water) Respiratory: diminished breath sounds Cardiovascular: regular rate and rhythm Gastrointestinal: soft, non-tender Musculoskeletal: muscle tone Extremities: edema (trace/B) Neurological: other (No focal deficits) Labs Result Diagram: 10/01/18 0642 10/01/18 0642 Results 24hrs Laboratory Tests Test 09/30/18 14:35 10/01/18 06:42 Total Protein (PEP) 6.8 Albumin (PEP) Pending Hlzjr-8-Ugacmuhuh Pending Nhgyr-8-Aymvcahia Pending Beta Globulins Pending Kmoj-7-Aatandqkspgam Pending Gamma Globulins Pending Protein Electrophoresis Interpret Pending White Blood Count 6.7 # Red Blood Count 4.17 L Hemoglobin 12.8 L Hematocrit 41.5 L Mean Corpuscular Volume 99.5 Mean Corpuscular Hemoglobin 30.7 Mean Corpuscular Hemoglobin Concent 30.8 L Red Cell Distribution Width 13.5 Platelet Count 130 L Mean Platelet Volume 13.0 H Immature Granulocytes % 0.300 Neutrophils % 70.9 Lymphocytes % 11.4 L Monocytes % 11.0 Eosinophils % 5.9 Basophils % 0.5 Nucleated Red Blood Cells % 0.0 Immature Granulocytes # 0.020 Neutrophils # 4.7 Lymphocytes # 0.8 Monocytes # 0.7 Eosinophils # 0.4 Basophils # 0.0 Nucleated Red Blood Cells # 0.0 Sodium Level 139 Potassium Level 3.9 Chloride Level 94 L Carbon Dioxide Level 39 H Anion Gap 6 Blood Urea Nitrogen 39 H Creatinine 0.90 Est Glomerular Filtrat Rate mL/min Glucose Level 175 Calcium Level 9.6 Phosphorus Level 3.5 Magnesium Level 2.2 Medications Medications Current Medications IV Flush (NS 3 ml) 3 ml PER PROTOCOL IV ; Start 09/29/18 at 15:30 Lorazepam (Ativan) 2 mg Q10MIN PRN IV seizure; Start 09/29/18 at 15:30 Ondansetron HCl (Zofran Inj) 4 mg Q6H PRN IV NAUSEA/VOMITING; Start 09/29/18 at 15:30 Acetaminophen (Tylenol Tab) 650 mg Q6H PRN PO .PAIN 1-3 OR TEMP; Start 09/29/18 at 15:30 Acetaminophen/ Hydrocodone Bitart ([place] (5/325)) 1 tab Q6H PRN PO .PAIN 4-6; Start 09/29/18 at 15:30 Morphine Sulfate (morphine) 2 mg Q4H PRN IV .PAIN 7-10; Start 09/29/18 at 15:30 Levetiracetam (Keppra) 500 mg BID PEG Last administered on 10/01/18 09:42; Admin Dose 500 MG; Start 09/29/18 at 21:00 Apixaban (Eliquis) 2.5 mg BID GTB Last administered on 10/01/18 09:43; Admin Dose 2.5 MG; Start 09/29/18 at 21:00 Carvedilol (Coreg) 6.25 mg BID GTB Last administered on 10/01/18 09:42; Admin Dose 6.25 MG; Start 09/29/18 at 21:00 Famotidine (Pepcid) 20 mg BID GTB Last administered on 10/01/18 09:41; Admin Dose 20 MG; Start 09/29/18 at 21:00 Furosemide (Lasix) 20 mg DAILY GTB Last administered on 10/01/18 09:42; Admin Dose 20 MG; Start 09/30/18 at 09:00 Latanoprost (Xalatan) 1 drop QHS BOTH EYES ; Start 09/29/18 at 21:00 Levothyroxine Sodium (Synthroid) 50 mcg BEFORE BREAKFAST GTB Last administered on 10/01/18 06:00; Admin Dose 50 MCG; Start 09/30/18 at 07:00 Eye Lubricant (Artificial Tears Oph) 1 drop Q6H BOTH EYES Last administered on 10/01/18 09:43; Admin Dose 1 DROP; Start 09/29/18 at 16:00 Sirolimus (Rapamune) 1 mg QHS PEG Last administered on 09/30/18 20:33; Admin Dose 1 MG; Start 09/29/18 at 21:00 Tamsulosin HCl (Flomax) 0.4 mg QPM PO Last administered on 09/30/18 20:32; Admin Dose 0.4 MG; Start 09/29/18 at 21:00 Diltiazem HCl (Cardizem) 30 mg Q8 PEG Last administered on 09/30/18 15:50; Admin Dose 30 MG; Start 09/29/18 at 22:00 Albuterol/ Ipratropium (Duoneb) 3 ml Q6HWA RESP THERAPY HHN Last administered on 10/01/18 13:00; Admin Dose 3 ML; Start 09/29/18 at 20:00 Albuterol/ Ipratropium (Duoneb) 3 ml Q2H RESP THERAPY PRN HHN shortness of breath; Start 09/29/18 at 16:30 Metoprolol Tartrate (Lopressor) 5 mg Q4H PRN IV HR>110 Hold SBP<100; Start 09/29/18 at 16:30 RORY JANSEN Oct 01, 2018 14:02
--- NOTE | 2018-10-01 14:14 | PN ---
Date/Time of Note Date/Time of Note DATE: 10/01/18 TIME: 14:13 Objective Vitals Vital Signs Date Temp Pulse Resp B/P (MAP) Pulse Ox O2 O2 Flow FiO2 Time Delivery Rate 10/01/18 91 18 95 13:00 10/01/18 98.0 96/55 (69) Nasal 11:08 Cannula 10/01/18 21 08:11 09/30/18 1.0 19:15 Intake and Output 09/30/18 09/30/18 10/01/18 1515:00 23:00 07:00 IntakeIntake Total 1080 ml OutputOutput Total 1 ml 3 ml 1 ml BalanceBalance -1 ml -3 ml 1079 ml Results Result Diagram: 10/01/18 0642 10/01/18 0642 Medications Medications Current Medications IV Flush (NS 3 ml) 3 ml PER PROTOCOL IV ; Start 09/29/18 at 15:30 Lorazepam (Ativan) 2 mg Q10MIN PRN IV seizure; Start 09/29/18 at 15:30 Ondansetron HCl (Zofran Inj) 4 mg Q6H PRN IV NAUSEA/VOMITING; Start 09/29/18 at 15:30 Acetaminophen (Tylenol Tab) 650 mg Q6H PRN PO .PAIN 1-3 OR TEMP; Start 09/29/18 at 15:30 Acetaminophen/ Hydrocodone Bitart ([place] (5/325)) 1 tab Q6H PRN PO .PAIN 4-6; Start 09/29/18 at 15:30 Morphine Sulfate (morphine) 2 mg Q4H PRN IV .PAIN 7-10; Start 09/29/18 at 15:30 Levetiracetam (Keppra) 500 mg BID PEG Last administered on 10/01/18at 09:42; Admin Dose 500 MG; Start 09/29/18 at 21:00 Apixaban (Eliquis) 2.5 mg BID GTB Last administered on 10/01/18at 09:43; Admin Dose 2.5 MG; Start 09/29/18 at 21:00 Carvedilol (Coreg) 6.25 mg BID GTB Last administered on 10/01/18at 09:42; Admin Dose 6.25 MG; Start 09/29/18 at 21:00 Famotidine (Pepcid) 20 mg BID GTB Last administered on 10/01/18 09:41; Admin Dose 20 MG; Start 09/29/18 at 21:00 Furosemide (Lasix) 20 mg DAILY GTB Last administered on 10/01/18 09:42; Admin Dose 20 MG; Start 09/30/18 at 09:00 Latanoprost (Xalatan) 1 drop QHS BOTH EYES ; Start 09/29/18 at 21:00 Levothyroxine Sodium (Synthroid) 50 mcg BEFORE BREAKFAST GTB Last administered on 10/01/18 06:00; Admin Dose 50 MCG; Start 09/30/18 at 07:00 Eye Lubricant (Artificial Tears Oph) 1 drop Q6H BOTH EYES Last administered on 10/01/18 09:43; Admin Dose 1 DROP; Start 09/29/18 at 16:00 Sirolimus (Rapamune) 1 mg QHS PEG Last administered on 09/30/18 20:33; Admin Dose 1 MG; Start 09/29/18 at 21:00 Tamsulosin HCl (Flomax) 0.4 mg QPM PO Last administered on 09/30/18 20:32; Admin Dose 0.4 MG; Start 09/29/18 at 21:00 Albuterol/ Ipratropium (Duoneb) 3 ml Q6HWA RESP THERAPY HHN Last administered on 10/01/18 13:00; Admin Dose 3 ML; Start 09/29/18 at 20:00 Albuterol/ Ipratropium (Duoneb) 3 ml Q2H RESP THERAPY PRN HHN shortness of breath; Start 09/29/18 at 16:30 Metoprolol Tartrate (Lopressor) 5 mg Q4H PRN IV HR>110 Hold SBP<100; Start 09/29/18 at 16:30 VTE Prophylaxis Risk score (from Nsg)>0 risk: 8 SCD applied (from Nsg): No SCD contraindication: other Lines/Catheters IV Catheter Type: Camejo in Place: No Assessment/Plan Hospital Course Subjective No acute changes overnight, patient was asleep and easily awoken. Objective Physical exam General: Patient is laying in bed and answers questions appropriately, but slowly and some garbled speech Mentation: Patient is alert and oriented Head: Normocephalic atraumatic Eyes: EOMI, pupils reactive to light Neck: Supple, nontender, midline Respiratory: Clear to auscultation bilaterally Cardiovascular: regular rate, no obvious murmurs Gastrointestinal: non-tender to palpation, bowel sounds heard. Neurological: Only able to squeeze lightly and left upper extremity, able to move left lower extremity slightly with toes, right lower extremity has slightly more movement than left and right upper extremity has full movement with good flame channeler strength Skin: No new skin lesions Assessment and plan New onset seizure -Patient seen by neurology, due to abnormality in the cortex, recommends patient to be on Keppra twice a day -We will follow, was loaded with Keppra in the ER -As needed Ativan for additional seizure Lytic lesion in the skull -Oncology consulted, questionable multiple myeloma -Patient does have mildly elevated calcium -mri pending Atrial fibrillation -Continue home medications as well as Eliquis -Cardiology has been consulted Chest pain -Cardiology consulted, no more chest pain at this time, even questionable history of chest pain bradycardia -mild, resolved, dilt on hold per cardiology COPD -Nebulizers History of nephrectomy and kidney repair transplant -Continue on serial limits BPH Continue Flomax History of CVA with residual left-sided weakness -Stable, neurology following Chronic dysphasia -Patient with PEG tube Disposition -Continue work-up from oncology, neurology and cardiology also following. SERAFIN GALE Oct 01, 2018 14:14
[2018-10-01 15:04] VITALS: BP 116/59; PULSE 82; RESP 20
[2018-10-01 20:00] VITALS: BP 127/77; PULSE 78; RESP 18
[2018-10-01] MEDS: TAMSULOSIN (SR) 0.4 MG CAP PO SCH (20:22)
[2018-10-01] MEDS: SIROLIMUS 1 MG TAB PEG SCH (20:22)
[2018-10-01] MEDS: LATANOPROST 0.005% 2.5 ML OPH BOTH EYES SCH (20:25)
[2018-10-02] VITALS (7 sets, daily range): BP systolic 101–144; BP diastolic 63–75; PULSE 76–90; RESP 18–22
[2018-10-02] MEDS: ARTIFICIAL TEARS 15 ML OPH BOTH EYES SCH ×4 (04:23→22:14)
[2018-10-02] MEDS: LEVOTHYROXINE 50 MCG TAB GTB SCH (06:23)
[2018-10-02] MEDS: ALBUTEROL/IPRATROPIUM (NEB) 3 ML AMP HHN SCH ×3 (07:43→19:32)
[2018-10-02] MEDS: FAMOTIDINE 20 MG TAB GTB SCH ×2 (08:54→22:15)
[2018-10-02] MEDS: LEVETIRACETAM 500 MG TAB PEG SCH ×2 (08:54→22:16)
[2018-10-02] MEDS: BALSAM PERU/CASTOR OIL 60 GM TUBE TOP SCH ×2 (08:54→22:15)
[2018-10-02] MEDS: APIXABAN 5 MG TABLET GTB SCH ×2 (08:55→22:15)
[2018-10-02] MEDS: FUROSEMIDE 20 MG TAB GTB SCH (08:55)
--- NOTE | 2018-10-02 12:32 | PN ---
Date/Time of Note Date/Time of Note DATE: 10/02/18 TIME: 12:31 Objective Vitals Vital Signs Date Temp Pulse Resp B/P (MAP) Pulse Ox O2 O2 Flow FiO2 Time Delivery Rate 10/02/18 98.0 83 20 140/70 95 Nasal 11:00 (93) Cannula 10/02/18 21 07:43 10/01/18 1.0 19:15 Intake and Output 10/01/18 10/01/18 10/02/18 1515:00 23:00 07:00 IntakeIntake Total 1080 ml OutputOutput Total 4 ml BalanceBalance -4 ml 1080 ml Results Result Diagram: 10/02/18 0615 10/02/18 0615 Medications Medications Current Medications IV Flush (NS 3 ml) 3 ml PER PROTOCOL IV ; Start 09/29/18 at 15:30 Lorazepam (Ativan) 2 mg Q10MIN PRN IV seizure; Start 09/29/18 at 15:30 Ondansetron HCl (Zofran Inj) 4 mg Q6H PRN IV NAUSEA/VOMITING; Start 09/29/18 at 15:30 Acetaminophen (Tylenol Tab) 650 mg Q6H PRN PO .PAIN 1-3 OR TEMP; Start 09/29/18 at 15:30 Acetaminophen/ Hydrocodone Bitart ([place] (5/325)) 1 tab Q6H PRN PO .PAIN 4-6; Start 09/29/18 at 15:30 Morphine Sulfate (morphine) 2 mg Q4H PRN IV .PAIN 7-10; Start 09/29/18 at 15:30 Levetiracetam (Keppra) 500 mg BID PEG Last administered on 10/02/18at 08:54; Admin Dose 500 MG; Start 09/29/18 at 21:00 Apixaban (Eliquis) 2.5 mg BID GTB Last administered on 10/02/18at 08:55; Admin D ose 2.5 MG; Start 09/29/18 at 21:00 Carvedilol (Coreg) 6.25 mg BID GTB Last administered on 10/02/18at 08:56; Admin Dose 6.25 MG; Start 09/29/18 at 21:00 Famotidine (Pepcid) 20 mg BID GTB Last administered on 10/02/18at 08:54; Admin Dose 20 MG; Start 09/29/18 at 21:00 Furosemide (Lasix) 20 mg DAILY GTB Last administered on 10/02/18 08:55; Admin Dose 20 MG; Start 09/30/18 at 09:00 Latanoprost (Xalatan) 1 drop QHS BOTH EYES Last administered on 10/01/18 20:25; Admin Dose 1 DROP; Start 09/29/18 at 21:00 Levothyroxine Sodium (Synthroid) 50 mcg BEFORE BREAKFAST GTB Last administered on 10/02/18 06:23; Admin Dose 50 MCG; Start 09/30/18 at 07:00 Eye Lubricant (Artificial Tears Oph) 1 drop Q6H BOTH EYES Last administered on 10/02/18 08:56; Admin Dose 1 DROP; Start 09/29/18 at 16:00 Sirolimus (Rapamune) 1 mg QHS PEG Last administered on 10/01/18 20:22; Admin Dose 1 MG; Start 09/29/18 at 21:00 Tamsulosin HCl (Flomax) 0.4 mg QPM PO Last administered on 10/01/18 20:22; Admin Dose 0.4 MG; Start 09/29/18 at 21:00 Albuterol/ Ipratropium (Duoneb) 3 ml Q6HWA RESP THERAPY HHN Last administered on 10/02/18 07:43; Admin Dose 3 ML; Start 09/29/18 at 20:00 Albuterol/ Ipratropium (Duoneb) 3 ml Q2H RESP THERAPY PRN HHN shortness of breath; Start 09/29/18 at 16:30 Metoprolol Tartrate (Lopressor) 5 mg Q4H PRN IV HR>110 Hold SBP<100; Start 09/29/18 at 16:30 VTE Prophylaxis Risk score (from Nsg)>0 risk: 7 SCD applied (from Nsg): No SCD contraindication: other Lines/Catheters IV Catheter Type: Camejo in Place: No Assessment/Plan Hospital Course Subjective No acute changes overnight, patient was asleep and easily awoken. Objective Physical exam General: Patient is laying in bed and answers questions appropriately, but slowly and some garbled speech Mentation: Patient is alert and oriented Head: Normocephalic atraumatic Eyes: EOMI, pupils reactive to light Neck: Supple, nontender, midline Respiratory: Clear to auscultation bilaterally Cardiovascular: regular rate, no obvious murmurs Gastrointestinal: non-tender to palpation, bowel sounds heard. Neurological: Only able to squeeze lightly and left upper extremity, able to move left lower extremity slightly with toes, right lower extremity has slightly more movement than left and right upper extremity has full movement with good brazing machine feeder strength Skin: No new skin lesions Assessment and plan New onset seizure -Patient seen by neurology, due to abnormality in the cortex, recommends patient to be on Keppra twice a day -We will follow, was loaded with Keppra in the ER -As needed Ativan for additional seizure Lytic lesion in the skull -Oncology consulted, questionable multiple myeloma -Patient does have mildly elevated calcium -mri noted Brain mass -Found on MRI -Neurosurgeon will evaluate Atrial fibrillation -Continue home medications as well as Eliquis -Cardiology has been consulted Chest pain -Cardiology consulted, no more chest pain at this time, even questionable history of chest pain bradycardia -mild, resolved, dilt on hold per cardiology COPD -Nebulizers History of nephrectomy and kidney repair transplant -Continue on serial limits BPH Continue Flomax History of CVA with residual left-sided weakness -Stable, neurology following Chronic dysphasia -Patient with PEG tube Disposition -Continue work-up from oncology, neurology and cardiology also following. SERAFIN GALE Oct 02, 2018 12:32
--- NOTE | 2018-10-02 15:53 | CONS ---
Assessment/Plan Assessment/Plan Hospital Course (Demo Recall) Subjective Says he has a cough but its improving. No CV complaints. Gen: Denies fever, chills CV: Denies chest pain, palpitations, SOB, LANE, orthopnea, PNA, edema, claudication Resp: Denies SOB, + cough GI: Denies nausea, vomiting, diarrhea, constipation, abdominal pain Neuro: Denies lightheadedness, dizziness, presyncope/syncope Medications and allergies reviewed Past medical, surgical, family and social history reviewed. Objective General: WD/WN, NAD HEENT: NC/AT, PERRLA, dry mucus membranes CV: irreg-irreg, grade 1/6 systolic murmur, S1/S2, no S3/S4, no JVD, no carotid bruits Respiratory: CTAB, no W/C/R, non-labored breathing GI: abdomen soft, NT/ND, normoactive bowel sounds Vascular: extremities are warm, 2+ radial/DT/PT pulses bilaterally, no edema Neuro: A/O x3, no focal deficits Assessment & Plan IMPRESSION: 1. Atrial fibrillation, currently rate controlled, on Eliquis 2. Abnormal electrocardiogram with nonspecific ST and T wave abnormality, suggestive for acute coronary syndrome.-neg trop x 3 3. Hypertension, under reasonable control. 4. Hypothyroidism. TSH 6.86 5. BPH. 6. Seizure, now on Keppra. 7. Lytic lesions on head CT, question etiology. 8. Congestive heart failure with preserved EF, on Lasix. Recc: -Tele -will continue coreg and will continue to hold dilt given episode of [place] to 30's intermittent. No recurrence with holding of CCB at this time -Continue eliquis -Continue lasix -Primary team to f/u on elevated TSH Consultation Date/Type/Reason Admit Date/Time Sep 29, 2018 at 10:04 Initial Consult Date Type of Consult Cardiology Requesting Provider: SERAFIN GALE Date/Time of Note DATE: 10/02/18 TIME: 15:48 Exam/Review of Systems Vital Signs Vitals Vital Signs Date Temp Pulse Resp B/P (MAP) Pulse Ox O2 O2 Flow FiO2 Time Delivery Rate 10/02/18 98.0 89 22 116/74 96 Room Air 15:03 (88) 10/02/18 21 13:43 10/01/18 1.0 19:15 Intake and Output 10/01/18 10/01/18 10/02/18 1515:00 23:00 07:00 IntakeIntake Total 1080 ml OutputOutput Total 4 ml BalanceBalance -4 ml 1080 ml Labs Result Diagram: 10/02/18 0615 10/02/18 0615 Results 24hrs Laboratory Tests Test 10/02/18 06:15 White Blood Count 5.6 Red Blood Count 4.11 L Hemoglobin 12.8 L Hematocrit 40.4 L Mean Corpuscular Volume 98.3 Mean Corpuscular Hemoglobin 31.1 Mean Corpuscular Hemoglobin Concent 31.7 L Red Cell Distribution Width 13.5 Platelet Count 129 L Mean Platelet Volume 13.6 H Immature Granulocytes % 0.400 Neutrophils % 65.1 Lymphocytes % 13.5 L Monocytes % 13.9 H Eosinophils % 6.4 Basophils % 0.7 Nucleated Red Blood Cells % 0.0 Immature Granulocytes # 0.020 Neutrophils # 3.7 Lymphocytes # 0.8 Monocytes # 0.8 Eosinophils # 0.4 Basophils # 0.0 Nucleated Red Blood Cells # 0.0 Sodium Level 140 Potassium Level 3.8 Chloride Level 95 L Carbon Dioxide Level 36 H Anion Gap 9 Blood Urea Nitrogen 35 H Creatinine 0.82 Est Glomerular Filtrat Rate mL/min Glucose Level 171 Calcium Level 9.7 Phosphorus Level 3.3 Magnesium Level 2.2 Medications Medications Current Medications IV Flush (NS 3 ml) 3 ml PER PROTOCOL IV ; Start 09/29/18 at 15:30 Lorazepam (Ativan) 2 mg Q10MIN PRN IV seizure; Start 09/29/18 at 15:30 Ondansetron HCl (Zofran Inj) 4 mg Q6H PRN IV NAUSEA/VOMITING; Start 09/29/18 at 15:30 Acetaminophen (Tylenol Tab) 650 mg Q6H PRN PO .PAIN 1-3 OR TEMP; Start 09/29/18 at 15:30 Acetaminophen/ Hydrocodone Bitart ([place] (5/325)) 1 tab Q6H PRN PO .PAIN 4-6; Start 09/29/18 at 15:30 Morphine Sulfate (morphine) 2 mg Q4H PRN IV .PAIN 7-10; Start 09/29/18 at 15:30 Levetiracetam (Keppra) 500 mg BID PEG Last administered on 10/02/18at 08:54; Admin Dose 500 MG; Start 09/29/18 at 21:00 Apixaban (Eliquis) 2.5 mg BID GTB Last administered on 10/02/18 08:55; Admin Dose 2.5 MG; Start 09/29/18 at 21:00 Carvedilol (Coreg) 6.25 mg BID GTB Last administered on 10/02/18 08:56; Admin Dose 6.25 MG; Start 09/29/18 at 21:00 Famotidine (Pepcid) 20 mg BID GTB Last administered on 10/02/18 08:54; Admin Dose 20 MG; Start 09/29/18 at 21:00 Furosemide (Lasix) 20 mg DAILY GTB Last administered on 10/02/18 08:55; Admin Dose 20 MG; Start 09/30/18 at 09:00 Latanoprost (Xalatan) 1 drop QHS BOTH EYES Last administered on 10/01/18 20:25; Admin Dose 1 DROP; Start 09/29/18 at 21:00 Levothyroxine Sodium (Synthroid) 50 mcg BEFORE BREAKFAST GTB Last administered on 10/02/18 06:23; Admin Dose 50 MCG; Start 09/30/18 at 07:00 Eye Lubricant (Artificial Tears Oph) 1 drop Q6H BOTH EYES Last administered on 10/02/18 15:26; Admin Dose 1 DROP; Start 09/29/18 at 16:00 Sirolimus (Rapamune) 1 mg QHS PEG Last administered on 10/01/18 20:22; Admin Dose 1 MG; Start 09/29/18 at 21:00 Tamsulosin HCl (Flomax) 0.4 mg QPM PO Last administered on 10/01/18 20:22; Admin Dose 0.4 MG; Start 09/29/18 at 21:00 Albuterol/ Ipratropium (Duoneb) 3 ml Q6HWA RESP THERAPY HHN Last administered on 10/02/18 13:43; Admin Dose 3 ML; Start 09/29/18 at 20:00 Albuterol/ Ipratropium (Duoneb) 3 ml Q2H RESP THERAPY PRN HHN shortness of breath; Start 09/29/18 at 16:30 Metoprolol Tartrate (Lopressor) 5 mg Q4H PRN IV HR>110 Hold SBP<100; Start 09/29/18 at 16:30 CHELY CLINE DO Oct 02, 2018 15:53
--- NOTE | 2018-10-02 16:10 | QN ---
Documentation Comment 83 year old with multiple medical problems including CVA last year with si gnificant residual neurologic deficits. Admitted for new onset seizure disorder. Patient had CT in ER which was felt to demonstrate 'lytic' calvarial lesions; I reviewed this CT and cannot appreciate them, though it is clear the patient has a left frontal extra-axial mass that is better defined on the follow up MRI. This lesion is enhancing and might be a meningioma. Other DDx considerations include dural based masses such as metastatic malignancy, lymphoma, etc. He probably has an old CT or even MRI from when he presented with CVA. These studies should be obtained for comparison purposes and to confirm the diagnosis of meningioma (ie meningiomas are slow growing tumors and would be expected to be unchanged from last year). Otherwise he needs a follow up MRI in 3-4 months. He is welcome to follow up with me as an outpatient with his old CT/ MRI studies, or to order repeat imaging if needed. His seizure disorder should be managed by neurology. [phone]. Thank you. PEDRITO POST MD Oct 02, 2018 16:10
[2018-10-02] MEDS: SIROLIMUS 1 MG TAB PEG SCH (22:15)
[2018-10-02] MEDS: TAMSULOSIN (SR) 0.4 MG CAP PO SCH (22:15)
[2018-10-02] MEDS: LATANOPROST 0.005% 2.5 ML OPH BOTH EYES SCH (22:24)
[2018-10-03 04:20] VITALS: BP 129/80; PULSE 77; RESP 20
[2018-10-03] MEDS: LEVOTHYROXINE 50 MCG TAB GTB SCH (06:07)
[2018-10-03] MEDS: ARTIFICIAL TEARS 15 ML OPH BOTH EYES SCH ×4 (06:07→20:57)
[2018-10-03 07:06] VITALS: BP 107/72; PULSE 71; RESP 18
[2018-10-03] MEDS: ALBUTEROL/IPRATROPIUM (NEB) 3 ML AMP HHN SCH ×3 (07:54→19:49)
[2018-10-03] MEDS: BALSAM PERU/CASTOR OIL 60 GM TUBE TOP SCH ×2 (08:42→20:57)
[2018-10-03] MEDS: FAMOTIDINE 20 MG TAB GTB SCH ×2 (08:42→20:58)
[2018-10-03] MEDS: FUROSEMIDE 20 MG TAB GTB SCH (08:42)
[2018-10-03] MEDS: LEVETIRACETAM 500 MG TAB PEG SCH ×2 (08:42→20:59)
[2018-10-03] MEDS: APIXABAN 5 MG TABLET GTB SCH ×2 (08:42→20:59)
--- NOTE | 2018-10-03 11:14 | PN ---
Date/Time of Note Date/Time of Note DATE: 10/03/18 TIME: 11:13 Objective Vitals Vital Signs Date Temp Pulse Resp B/P (MAP) Pulse Ox O2 O2 Flow FiO2 Time Delivery Rate 10/03/18 88 18 96 21 07:54 10/03/18 98.2 107/72 07:06 (84) 10/03/18 Room Air 04:20 10/01/18 1.0 19:15 Intake and Output 10/02/18 10/02/18 10/03/18 1515:00 23:00 07:00 IntakeIntake Total 1080 ml 1160 ml OutputOutput Total 4 ml BalanceBalance 1076 ml 1160 ml Results Result Diagram: 10/03/1803 10/03/18 0603 Medications Medications Current Medications IV Flush (NS 3 ml) 3 ml PER PROTOCOL IV ; Start 09/29/18 at 15:30 Lorazepam (Ativan) 2 mg Q10MIN PRN IV seizure; Start 09/29/18 at 15:30 Ondansetron HCl (Zofran Inj) 4 mg Q6H PRN IV NAUSEA/VOMITING; Start 09/29/18 at 15:30 Acetaminophen (Tylenol Tab) 650 mg Q6H PRN PO .PAIN 1-3 OR TEMP; Start 09/29/18 at 15:30 Acetaminophen/ Hydrocodone Bitart ([place] (5/325)) 1 tab Q6H PRN PO .PAIN 4-6; Start 09/29/18 at 15:30 Morphine Sulfate (morphine) 2 mg Q4H PRN IV .PAIN 7-10; Start 09/29/18 at 15:30 Levetiracetam (Keppra) 500 mg BID PEG Last administered on 10/03/18at 08:42; Admin Dose 500 MG; Start 09/29/18 at 21:00 Apixaban (Eliquis) 2.5 mg BID GTB Last administered on 10/03/18at 08:42; Admin Dose 2.5 MG; Start 09/29/18 at 21:00 Carvedilol (Coreg) 6.25 mg BID GTB Last administered on 10/02/18at 22:16; Admin Dose 6.25 MG; Start 09/29/18 at 21:00 Famotidine (Pepcid) 20 mg BID GTB Last administered on 10/03/18 08:42; Admin Dose 20 MG; Start 09/29/18 at 21:00 Furosemide (Lasix) 20 mg DAILY GTB Last administered on 10/03/18 08:42; Admin Dose 20 MG; Start 09/30/18 at 09:00 Latanoprost (Xalatan) 1 drop QHS BOTH EYES Last administered on 10/02/18 22:24; Admin Dose 1 DROP; Start 09/29/18 at 21:00 Levothyroxine Sodium (Synthroid) 50 mcg BEFORE BREAKFAST GTB Last administered on 10/03/18 06:07; Admin Dose 50 MCG; Start 09/30/18 at 07:00 Eye Lubricant (Artificial Tears Oph) 1 drop Q6H BOTH EYES Last administered on 10/03/18 08:43; Admin Dose 1 DROP; Start 09/29/18 at 16:00 Sirolimus (Rapamune) 1 mg QHS PEG Last administered on 10/02/18 22:15; Admin Dose 1 MG; Start 09/29/18 at 21:00 Tamsulosin HCl (Flomax) 0.4 mg QPM PO Last administered on 10/02/18 22:15; Admin Dose 0.4 MG; Start 09/29/18 at 21:00 Albuterol/ Ipratropium (Duoneb) 3 ml Q6HWA RESP THERAPY HHN Last administered on 10/03/18 07:54; Admin Dose 3 ML; Start 09/29/18 at 20:00 Albuterol/ Ipratropium (Duoneb) 3 ml Q2H RESP THERAPY PRN HHN shortness of breath; Start 09/29/18 at 16:30 Metoprolol Tartrate (Lopressor) 5 mg Q4H PRN IV HR>110 Hold SBP<100; Start 09/29/18 at 16:30 VTE Prophylaxis Risk score (from Nsg)>0 risk: 7 SCD applied (from Nsg): No SCD contraindication: other Lines/Catheters IV Catheter Type: Camejo in Place: No Assessment/Plan Hospital Course Subjective No acute changes overnight, patient was asleep and easily awoken. Objective Physical exam General: Patient is laying in bed and answers questions appropriately, but slowly and some garbled speech Mentation: Patient is alert and oriented Head: Normocephalic atraumatic Eyes: EOMI, pupils reactive to light Neck: Supple, nontender, midline Respiratory: Clear to auscultation bilaterally Cardiovascular: regular rate, no obvious murmurs Gastrointestinal: non-tender to palpation, bowel sounds heard. Neurological: Only able to squeeze lightly and left upper extremity, able to move left lower extremity slightly with toes, right lower extremity has slightly more movement than left and right upper extremity has full movement with good barrel tester and drainer strength Skin: No new skin lesions Assessment and plan New onset seizure -Patient seen by neurology, due to abnormality in the cortex, recommends patient to be on Keppra twice a day -We will follow, was loaded with Keppra in the ER -As needed Ativan for additional seizure Lytic lesion in the skull -Oncology consulted, questionable multiple myeloma -Patient does have mildly elevated calcium -mri noted Brain mass -Found on MRI -Neurosurgeon saw patient, recommended outpatient follow-up with previous images,. Also recommended oncology work-up to continue to rule out other causes. Atrial fibrillation -Continue home medications as well as Eliquis -Cardiology has been consulted Chest pain -Cardiology consulted, no more chest pain at this time, even questionable history of chest pain bradycardia -mild, resolved, dilt on hold per cardiology COPD -Nebulizers History of nephrectomy and kidney repair transplant -Continue on serial limits BPH Continue Flomax History of CVA with residual left-sided weakness -Stable, neurology following Chronic dysphasia -Patient with PEG tube Disposition -Continue work-up from oncology, neurology and cardiology also following. SERAFIN GALE Oct 03, 2018 11:14
[2018-10-03 11:20] VITALS: BP 120/77; PULSE 84; RESP 18
--- NOTE | 2018-10-03 13:57 | CONS ---
Assessment/Plan Assessment/Plan Hospital Course (Demo Recall) Subjective Still has a has a cough but its improving. No CV complaints. Gen: Denies fever, chills CV: Denies chest pain, palpitations, SOB, LANE, orthopnea, PND, edema, claudication Resp: Denies SOB, + cough GI: Denies nausea, vomiting, diarrhea, constipation, abdominal pain Neuro: Denies lightheadedness, dizziness, presyncope/syncope Medications and allergies reviewed Past medical, surgical, family and social history reviewed. Objective General: WD/WN, NAD HEENT: NC/AT, PERRLA, dry mucus membranes CV: irreg-irreg, grade 1/6 systolic murmur, S1/S2, no S3/S4, no JVD, no carotid bruits Respiratory: CTAB, no W/C/R, non-labored breathing GI: abdomen soft, NT/ND, normoactive bowel sounds Vascular: extremities are warm, 2+ radial/DT/PT pulses bilaterally, no edema Neuro: A/O x3, no focal deficits Assessment & Plan IMPRESSION: 1. Atrial fibrillation, currently rate controlled, on Eliquis 2. Abnormal electrocardiogram with nonspecific ST and T wave abnormality, suggestive for acute coronary syndrome.-neg trop x 3 3. Hypertension, well controlled 4. Hypothyroidism. TSH 6.86 5. BPH. 6. Seizure, now on Keppra. 7. Lytic lesions on head CT, question etiology. 8. Congestive heart failure with preserved EF, on Lasix. Recc: -Tele -will continue coreg and will continue to hold dilt given episode of violetta to 30's intermittent. No recurrence with holding of CCB at this time -Continue eliquis -Continue lasix -Primary team to f/u on elevated TSH Consultation Date/Type/Reason Admit Date/Time Sep 29, 2018 at 10:04 Initial Consult Date Type of Consult Cardiology Requesting Provider: SERAFIN GALE Date/Time of Note DATE: 10/03/18 TIME: 13:55 Exam/Review of Systems Vital Signs Vitals Vital Signs Date Temp Pulse Resp B/P (MAP) Pulse Ox O2 O2 Flow FiO2 Time Delivery Rate 10/03/18 75 18 21 13:46 10/03/18 98.2 120/77 98 11:20 (91) 10/03/18 Room Air 04:20 10/01/18 1.0 19:15 Intake and Output 10/02/18 10/02/18 10/03/18 1515:00 23:00 07:00 IntakeIntake Total 1080 ml 1160 ml OutputOutput Total 4 ml BalanceBalance 1076 ml 1160 ml Labs Result Diagram: 10/03/18 0603 10/03/18 0603 Results 24hrs Laboratory Tests Test 10/03/18 06:03 White Blood Count 5.5 Red Blood Count 4.25 L Hemoglobin 13.2 L Hematocrit 41.9 L Mean Corpuscular Volume 98.6 Mean Corpuscular Hemoglobin 31.1 Mean Corpuscular Hemoglobin Concent 31.5 L Red Cell Distribution Width 13.4 Platelet Count 130 L Mean Platelet Volume 13.5 H Immature Granulocytes % 0.400 Neutrophils % 66.3 Lymphocytes % 14.6 L Monocytes % 12.0 H Eosinophils % 6.2 Basophils % 0.5 Nucleated Red Blood Cells % 0.0 Immature Granulocytes # 0.020 Neutrophils # 3.6 Lymphocytes # 0.8 Monocytes # 0.7 Eosinophils # 0.3 Basophils # 0.0 Nucleated Red Blood Cells # 0.0 Sodium Level 137 Potassium Level 3.9 Chloride Level 94 L Carbon Dioxide Level 36 H Anion Gap 7 Blood Urea Nitrogen 40 H Creatinine 0.87 Est Glomerular Filtrat Rate mL/min Glucose Level 160 Calcium Level 9.9 Phosphorus Level 3.7 Magnesium Level 2.3 Medications Medications Current Medications IV Flush (NS 3 ml) 3 ml PER PROTOCOL IV ; Start 09/29/18 at 15:30 Lorazepam (Ativan) 2 mg Q10MIN PRN IV seizure; Start 09/29/18 at 15:30 Ondansetron HCl (Zofran Inj) 4 mg Q6H PRN IV NAUSEA/VOMITING; Start 09/29/18 at 15:30 Acetaminophen (Tylenol Tab) 650 mg Q6H PRN PO .PAIN 1-3 OR TEMP; Start 09/29/18 at 15:30 Acetaminophen/ Hydrocodone Bitart ([place] (5/325)) 1 tab Q6H PRN PO .PAIN 4-6; Start 09/29/18 at 15:30 Morphine Sulfate (morphine) 2 mg Q4H PRN IV .PAIN 7-10; Start 09/29/18 at 15:30 Levetiracetam (Keppra) 500 mg BID PEG Last administered on 10/03/18 08:42; Admin Dose 500 MG; Start 09/29/18 at 21:00 Apixaban (Eliquis) 2.5 mg BID GTB Last administered on 10/03/18 08:42; Admin Dose 2.5 MG; Start 09/29/18 at 21:00 Carvedilol (Coreg) 6.25 mg BID GTB Last administered on 10/02/18 22:16; Admin Dose 6.25 MG; Start 09/29/18 at 21:00 Famotidine (Pepcid) 20 mg BID GTB Last administered on 10/03/18 08:42; Admin Dose 20 MG; Start 09/29/18 at 21:00 Furosemide (Lasix) 20 mg DAILY GTB Last administered on 10/03/18 08:42; Admin Dose 20 MG; Start 09/30/18 at 09:00 Latanoprost (Xalatan) 1 drop QHS BOTH EYES Last administered on 10/02/18 22:24; Admin Dose 1 DROP; Start 09/29/18 at 21:00 Levothyroxine Sodium (Synthroid) 50 mcg BEFORE BREAKFAST GTB Last administered on 10/03/18 06:07; Admin Dose 50 MCG; Start 09/30/18 at 07:00 Eye Lubricant (Artificial Tears Oph) 1 drop Q6H BOTH EYES Last administered on 10/03/18 08:43; Admin Dose 1 DROP; Start 09/29/18 at 16:00 Sirolimus (Rapamune) 1 mg QHS PEG Last administered on 10/02/18 22:15; Admin Dose 1 MG; Start 09/29/18 at 21:00 Tamsulosin HCl (Flomax) 0.4 mg QPM PO Last administered on 10/02/18 22:15; Admin Dose 0.4 MG; Start 09/29/18 at 21:00 Albuterol/ Ipratropium (Duoneb) 3 ml Q6HWA RESP THERAPY HHN Last administered on 10/03/18 13:46; Admin Dose 3 ML; Start 09/29/18 at 20:00 Albuterol/ Ipratropium (Duoneb) 3 ml Q2H RESP THERAPY PRN HHN shortness of breath; Start 09/29/18 at 16:30 Metoprolol Tartrate (Lopressor) 5 mg Q4H PRN IV HR>110 Hold SBP<100; Start 09/29/18 at 16:30 CHELY CLINE DO Oct 03, 2018 13:57
[2018-10-03 15:37] VITALS: BP 109/60; PULSE 74; RESP 18
[2018-10-03 19:21] VITALS: BP 131/69; PULSE 91; RESP 18
[2018-10-03] MEDS: LATANOPROST 0.005% 2.5 ML OPH BOTH EYES SCH (20:57)
[2018-10-03] MEDS: TAMSULOSIN (SR) 0.4 MG CAP PO SCH (20:58)
[2018-10-03] MEDS: SIROLIMUS 1 MG TAB PEG SCH (20:59)
[2018-10-04] VITALS (7 sets, daily range): BP systolic 92–130; BP diastolic 56–75; PULSE 81–94; RESP 16–20
[2018-10-04] MEDS: LEVOTHYROXINE 50 MCG TAB GTB SCH (06:43)
[2018-10-04] MEDS: ARTIFICIAL TEARS 15 ML OPH BOTH EYES SCH ×4 (06:43→21:00)
[2018-10-04] MEDS: ALBUTEROL/IPRATROPIUM (NEB) 3 ML AMP HHN SCH ×3 (08:22→19:48)
[2018-10-04] MEDS: FUROSEMIDE 20 MG TAB GTB SCH (08:29)
[2018-10-04] MEDS: LEVETIRACETAM 500 MG TAB PEG SCH ×2 (08:30→20:41)
[2018-10-04] MEDS: APIXABAN 5 MG TABLET GTB SCH ×2 (08:30→20:41)
[2018-10-04] MEDS: FAMOTIDINE 20 MG TAB GTB SCH ×2 (08:30→20:40)
[2018-10-04] MEDS: BALSAM PERU/CASTOR OIL 60 GM TUBE TOP SCH ×2 (08:31→20:41)
--- NOTE | 2018-10-04 10:43 | PN ---
Date/Time of Note Date/Time of Note DATE: 10/04/18 TIME: 10:41 Assessment/Plan VTE Prophylaxis Risk score (from Nsg)>0 risk: 7 SCD applied (from Nsg): Yes Pharmacological prophylaxis: apixaban Lines/Catheters IV Catheter Type (from Nrsg): [place] Urinary Cath still in place: No Assessment/Plan Assessment/Plan Assessment and plan New onset seizure -Patient seen by neurology, due to abnormality in the cortex, recommends patient to be on Keppra twice a day -We will follow, was loaded with Keppra in the ER -As needed Ativan for additional seizure Lytic lesion in the skull -Oncology consulted, questionable multiple myeloma -Patient does have mildly elevated calcium -mri noted Brain mass -Found on MRI -Neurosurgeon saw patient, recommended outpatient follow-up with previous i kam,. Also recommended oncology work-up to continue to rule out other causes. Atrial fibrillation -Continue home medications as well as Eliquis -Cardiology has been consulted Chest pain -Cardiology consulted, no more chest pain at this time, even questionable history of chest pain bradycardia -mild, resolved, dilt on hold per cardiology COPD -Nebulizers History of nephrectomy and kidney repair transplant -Continue on serial limits BPH Continue Flomax History of CVA with residual left-sided weakness -Stable, neurology following Chronic dysphasia -Patient with PEG tube Disposition - Plan for discharge back to SNF pending FT4 result and possible change in neuro status today. Result Diagram: 10/04/18 0724 10/04/18 0724 Subjective 24 Hr Interval Summary Free Text/Dictation No acute overnight events. Patient lethargic today. Exam/Review of Systems Exam Vitals Vital Signs Date Temp Pulse Resp B/P (MAP) Pulse Ox O2 O2 Flow FiO2 Time Delivery Rate 10/04/18 76 16 96 21 08:22 10/04/18 98.4 122/69 07:21 (86) 10/04/18 Room Air 04:10 10/01/18 1.0 19:15 Intake and Output 10/03/18 10/03/18 10/04/18 1515:00 23:00 07:00 IntakeIntake Total 1130 ml 1160 ml OutputOutput Total 450 ml 350 ml BalanceBalance -450 ml 780 ml 1160 ml Exam General: Elderly man supine in bed, lethargic. Neuro: Moves all extremities to pain. Moans to sternal rub. Does not answer questions. Head: Normocephalic atraumatic Eyes: EOMI, pupils reactive to light Neck: Supple, nontender, midline Respiratory: Clear to auscultation bilaterally Cardiovascular: regular rate, no obvious murmurs Gastrointestinal: non-tender to palpation, bowel sounds heard. Skin: No new skin lesions Results Results 24hrs Laboratory Tests Test 10/04/18 07:24 10/04/18 08:43 White Blood Count 6.7 # Red Blood Count 4.13 L Hemoglobin 12.8 L Hematocrit 40.5 L Mean Corpuscular Volume 98.1 Mean Corpuscular Hemoglobin 31.0 Mean Corpuscular Hemoglobin Concent 31.6 L Red Cell Distribution Width 13.4 Platelet Count 127 L Mean Platelet Volume 13.3 H Immature Granulocytes % 0.600 H Neutrophils % 65.1 Lymphocytes % 16.1 Monocytes % 11.7 H Eosinophils % 6.0 Basophils % 0.5 Nucleated Red Blood Cells % 0.0 Immature Granulocytes # 0.040 H Neutrophils # 4.3 Lymphocytes # 1.1 Monocytes # 0.8 Eosinophils # 0.4 Basophils # 0.0 Nucleated Red Blood Cells # 0.0 Sodium Level 139 Potassium Level 3.8 Chloride Level 94 L Carbon Dioxide Level 36 H Anion Gap 9 Blood Urea Nitrogen 41 H Creatinine 0.91 Est Glomerular Filtrat Rate mL/min Glucose Level 140 Calcium Level 9.6 Phosphorus Level 3.6 Magnesium Level 2.3 Lab Scanned Report REFERENCE LAB Medications Medication Current Medications IV Flush (NS 3 ml) 3 ml PER PROTOCOL IV ; Start 09/29/18 at 15:30 Lorazepam (Ativan) 2 mg Q10MIN PRN IV seizure; Start 09/29/18 at 15:30 Ondansetron HCl (Zofran Inj) 4 mg Q6H PRN IV NAUSEA/VOMITING; Start 09/29/18 at 15:30 Acetaminophen (Tylenol Tab) 650 mg Q6H PRN PO .PAIN 1-3 OR TEMP; Start 09/29/18 at 15:30 Acetaminophen/ Hydrocodone Bitart ([place] (5/325)) 1 tab Q6H PRN PO .PAIN 4-6; Start 09/29/18 at 15:30 Morphine Sulfate (morphine) 2 mg Q4H PRN IV .PAIN 7-10; Start 09/29/18 at 15:30 Levetiracetam (Keppra) 500 mg BID PEG Last administered on 10/04/18 08:30; Admin Dose 500 MG; Start 09/29/18 at 21:00 Apixaban (Eliquis) 2.5 mg BID GTB Last administered on 10/04/18 08:30; Admin Dose 2.5 MG; Start 09/29/18 at 21:00 Carvedilol (Coreg) 6.25 mg BID GTB Last administered on 10/04/18 08:30; Admin Dose 6.25 MG; Start 09/29/18 at 21:00 Famotidine (Pepcid) 20 mg BID GTB Last administered on 10/04/18 08:30; Admin Dose 20 MG; Start 09/29/18 at 21:00 Furosemide (Lasix) 20 mg DAILY GTB Last administered on 10/04/18 08:29; Admin Dose 20 MG; Start 09/30/18 at 09:00 Latanoprost (Xalatan) 1 drop QHS BOTH EYES Last administered on 10/03/18 20:57; Admin Dose 1 DROP; Start 09/29/18 at 21:00 Levothyroxine Sodium (Synthroid) 50 mcg BEFORE BREAKFAST GTB Last administered on 10/04/18 06:43; Admin Dose 50 MCG; Start 09/30/18 at 07:00 Eye Lubricant (Artificial Tears Oph) 1 drop Q6H BOTH EYES Last administered on 10/04/18 08:30; Admin Dose 1 DROP; Start 09/29/18 at 16:00 Sirolimus (Rapamune) 1 mg QHS PEG Last administered on 10/03/18 20:59; Admin Dose 1 MG; Start 09/29/18 at 21:00 Tamsulosin HCl (Flomax) 0.4 mg QPM PO Last administered on 10/03/18 20:58; Admin Dose 0.4 MG; Start 09/29/18 at 21:00 Albuterol/ Ipratropium (Duoneb) 3 ml Q6HWA RESP THERAPY HHN Last administered on 10/04/18 08:22; Admin Dose 3 ML; Start 09/29/18 at 20:00 Albuterol/ Ipratropium (Duoneb) 3 ml Q2H RESP THERAPY PRN HHN shortness of breath; Start 09/29/18 at 16:30 Metoprolol Tartrate (Lopressor) 5 mg Q4H PRN IV HR>110 Hold SBP<100; Start 09/29/18 at 16:30 RORY MORSE MD Oct 04, 2018 10:43
--- NOTE | 2018-10-04 13:23 | CONS ---
Assessment/Plan Assessment/Plan Hospital Course (Demo Recall) IMPRESSION: 1. Atrial fibrillation, currently rate controlled, on Eliquis, but presenting with seizure. 2. Abnormal electrocardiogram with nonspecific ST and T wave abnormality, suggestive for acute coronary syndrome.-neg trop x 3 3. Hypertension, under reasonable control. 4. Hypothyroidism. 5. BPH. 6. Seizure, now on Keppra. 7. Lytic lesions on head CT, question etiology. 8. Hypothyroidism. 9. Congestive heart failure with preserved EF, on Lasix. Recc: -Tele -serial ecg's -will continue coreg and will continue to hold dilt given episode of violetta to 30's intermittent. No recurrence with holding of CCB at this time -Continue eliquis -Continue lasix -Contineu synthroid Consultation Date/Type/Reason Admit Date/Time Sep 29, 2018 at 10:04 Initial Consult Date 09/29/18 Type of Consult Cardiology Reason for Consultation AF Requesting Provider: SERAFIN GALE Date/Time of Note DATE: 10/04/18 TIME: 13:18 Exam/Review of Systems Vital Signs Vitals Vital Signs Date Temp Pulse Resp B/P (MAP) Pulse Ox O2 O2 Flow FiO2 Time Delivery Rate 10/04/18 98.3 82 17 117/56 95 11:03 (76) 10/04/18 21 08:22 10/04/18 Room Air 04:10 10/01/18 1.0 19:15 Intake and Output 10/03/18 10/03/18 10/04/18 1515:00 23:00 07:00 IntakeIntake Total 1130 ml 1160 ml OutputOutput Total 450 ml 350 ml BalanceBalance -450 ml 780 ml 1160 ml Exam Exam Review of Systems: CONSTITUTIONAL: No fevers, chills. PULMONARY: No sob CARDIOVASCULAR: No chest pain/palpitations GASTROINTESTINAL: No nausea/vomiting. GENITOURINARY: No hematuria/dysuria. MUSCULOSKELETAL: No myagias/arthalgias. PSYCHIATRIC: The patient denies depression. NEUROLOGIC: No weakness Constitutional: alert Psych: no complaints ENMT: mucosa pink and moist Neck: supple, jvd Respiratory: diminished breath sounds Cardiovascular: regular rate and rhythm Gastrointestinal: soft Musculoskeletal: muscle tone (normal) Extremities: edema (none) Neurological: other (No focal deficits) Labs Result Diagram: 10/04/1872310/04/18 0724 Results 24hrs Laboratory Tests Test 10/04/18 07:21 10/04/18 07:24 10/04/18 08:43 Free Thyroxine 1.31 White Blood Count 6.7 # Red Blood Count 4.13 L Hemoglobin 12.8 L Hematocrit 40.5 L Mean Corpuscular Volume 98.1 Mean Corpuscular Hemoglobin 31.0 Mean Corpuscular Hemoglobin Concent 31.6 L Red Cell Distribution Width 13.4 Platelet Count 127 L Mean Platelet Volume 13.3 H Immature Granulocytes % 0.600 H Neutrophils % 65.1 Lymphocytes % 16.1 Monocytes % 11.7 H Eosinophils % 6.0 Basophils % 0.5 Nucleated Red Blood Cells % 0.0 Immature Granulocytes # 0.040 H Neutrophils # 4.3 Lymphocytes # 1.1 Monocytes # 0.8 Eosinophils # 0.4 Basophils # 0.0 Nucleated Red Blood Cells # 0.0 Sodium Level 139 Potassium Level 3.8 Chloride Level 94 L Carbon Dioxide Level 36 H Anion Gap 9 Blood Urea Nitrogen 41 H Creatinine 0.91 Est Glomerular Filtrat Rate mL/min Glucose Level 140 Calcium Level 9.6 Phosphorus Level 3.6 Magnesium Level 2.3 Lab Scanned Report REFERENCE LAB Medications Medications Current Medications IV Flush (NS 3 ml) 3 ml PER PROTOCOL IV ; Start 09/29/18 at 15:30 Lorazepam (Ativan) 2 mg Q10MIN PRN IV seizure; Start 09/29/18 at 15:30 Ondansetron HCl (Zofran Inj) 4 mg Q6H PRN IV NAUSEA/VOMITING; Start 09/29/18 at 15:30 Acetaminophen (Tylenol Tab) 650 mg Q6H PRN PO .PAIN 1-3 OR TEMP; Start 09/29/18 at 15:30 Acetaminophen/ Hydrocodone Bitart ([place] (5/325)) 1 tab Q6H PRN PO .PAIN 4-6; Start 09/29/18 at 15:30 Morphine Sulfate (morphine) 2 mg Q4H PRN IV .PAIN 7-10; Start 09/29/18 at 15:30 Levetiracetam (Keppra) 500 mg BID PEG Last administered on 10/04/18at 08:30; Admin Dose 500 MG; Start 09/29/18 at 21:00 Apixaban (Eliquis) 2.5 mg BID GTB Last administered on 10/04/18 08:30; Admin Dose 2.5 MG; Start 09/29/18 at 21:00 Carvedilol (Coreg) 6.25 mg BID GTB Last administered on 10/04/18 08:30; Admin Dose 6.25 MG; Start 09/29/18 at 21:00 Famotidine (Pepcid) 20 mg BID GTB Last administered on 10/04/18 08:30; Admin Dose 20 MG; Start 09/29/18 at 21:00 Furosemide (Lasix) 20 mg DAILY GTB Last administered on 10/04/18 08:29; Admin Dose 20 MG; Start 09/30/18 at 09:00 Latanoprost (Xalatan) 1 drop QHS BOTH EYES Last administered on 10/03/18 20:57; Admin Dose 1 DROP; Start 09/29/18 at 21:00 Levothyroxine Sodium (Synthroid) 50 mcg BEFORE BREAKFAST GTB Last administered on 10/04/18 06:43; Admin Dose 50 MCG; Start 09/30/18 at 07:00 Eye Lubricant (Artificial Tears Oph) 1 drop Q6H BOTH EYES Last administered on 10/04/18 08:30; Admin Dose 1 DROP; Start 09/29/18 at 16:00 Sirolimus (Rapamune) 1 mg QHS PEG Last administered on 10/03/18 20:59; Admin Dose 1 MG; Start 09/29/18 at 21:00 Tamsulosin HCl (Flomax) 0.4 mg QPM PO Last administered on 10/03/18 20:58; Admin Dose 0.4 MG; Start 09/29/18 at 21:00 Albuterol/ Ipratropium (Duoneb) 3 ml Q6HWA RESP THERAPY HHN Last administered on 10/04/18 08:22; Admin Dose 3 ML; Start 09/29/18 at 20:00 Albuterol/ Ipratropium (Duoneb) 3 ml Q2H RESP THERAPY PRN HHN shortness of breath; Start 09/29/18 at 16:30 Metoprolol Tartrate (Lopressor) 5 mg Q4H PRN IV HR>110 Hold SBP<100; Start 09/29/18 at 16:30 RORY JANSEN Oct 04, 2018 13:23
[2018-10-04] MEDS: TAMSULOSIN (SR) 0.4 MG CAP PO SCH (20:40)
[2018-10-04] MEDS: SIROLIMUS 1 MG TAB PEG SCH (20:41)
[2018-10-04] MEDS: LATANOPROST 0.005% 2.5 ML OPH BOTH EYES SCH (20:55)
[2018-10-05 03:49] VITALS: BP 134/77; PULSE 89; RESP 18
[2018-10-05] MEDS: ARTIFICIAL TEARS 15 ML OPH BOTH EYES SCH ×2 (05:05→08:28)
[2018-10-05] MEDS: LEVOTHYROXINE 50 MCG TAB GTB SCH (05:31)
[2018-10-05 07:09] VITALS: BP 119/67; PULSE 68; RESP 16
[2018-10-05] MEDS: ALBUTEROL/IPRATROPIUM (NEB) 3 ML AMP HHN SCH ×2 (07:58→13:36)
[2018-10-05] MEDS: APIXABAN 5 MG TABLET GTB SCH (08:27)
[2018-10-05] MEDS: FAMOTIDINE 20 MG TAB GTB SCH (08:27)
[2018-10-05] MEDS: LEVETIRACETAM 500 MG TAB PEG SCH (08:27)
[2018-10-05] MEDS: FUROSEMIDE 20 MG TAB GTB SCH (08:28)
[2018-10-05] MEDS: BALSAM PERU/CASTOR OIL 60 GM TUBE TOP SCH (08:28)
[2018-10-05 11:04] VITALS: BP 108/75; PULSE 73; RESP 17
--- NOTE | 2018-10-05 11:17 | CONS ---
Consult Date/Type/Reason Admit Date/Time Sep 29, 2018 at 10:04 Initial Consult Date Requesting Provider: SERAFIN GALE Date/Time of Note DATE: 10/05/18 TIME: 11:16 Subjective NO acute events - pt comfortable - no CP now - rate controlled - no new Sz noted. ROS: No fever, no chills, no nausea, no vomiting, no diarrhea/constipation - per nurse, no new Sz Objective Vitals Vital Signs Date Temp Pulse Resp B/P (MAP) Pulse Ox O2 O2 Flow FiO2 Time Delivery Rate 10/05/18 98.6 73 17 108/75 96 11:04 (86) 10/05/18 21 07:58 10/05/18 Room Air 03:49 10/01/18 1.0 19:15 Intake and Output 10/04/18 10/04/18 10/05/18 1515:00 23:00 07:00 IntakeIntake Total 1180 ml 1130 ml OutputOutput Total 450 ml 450 ml 320 ml BalanceBalance -450 ml 730 ml 810 ml Exam General: WN/WD/NAD, AOx 0 HEENT: Unicetric/atraumatic/EOMI (does not follow commands) NECK: JVD elevated, no thyromegaly Lymph: no lymphadenopathy HEART: irregular with no S3, II/ systolic murmur at apex LUNGS: Coarse sounds ABD: soft, NT, ND, +BS : Intact Neuro: non focal SKIN: chronic changes EXT: trace edema Results/Medications Result Diagram: 10/04/1872310/04/18 0724 Home Meds Reported Medications [Diltiazem Hcl] No Conflict Check, 2.5 ML GTB Q8H DILTIAZEM HCL SOLUTION 12MG/ML HOLD IF SBP<110 OR SC<60 09/29/18 Ondansetron Hcl* (Zofran*) 4 Mg Tab, 4 MG GTB Q6H PRN for NAUSEA AND OR VOMITING, TAB 09/29/18 Latanoprost (Latanoprost) 2.5 Ml Drops, 1 DROP BOTH EYES QHS, #1 BOTTLE 09/29/18 Famotidine* (Famotidine*) 20 Mg Tablet, 20 MG GTB BID, #60 TAB 09/29/18 Furosemide* (Furosemide*) 20 Mg Tablet, 20 MG GTB DAILY, #60 TAB 09/29/18 Carvedilol* (Coreg*) 6.25 Mg Tablet, 6.25 MG GTB BID, #60 TAB HOLD FOR SBP<110 OR SC<60 09/29/18 Polyvinyl Alcohol* ([place] Tears*) 1.4% - 15 Ml Drops, 1 DROP BOTH EYES Q6H, #1 BOTTLE 09/29/18 Albuterol Sulfate* (Albuterol Sulfate* Neb) 0.083%-3 Ml Neb, 1.25 MG NEB Q6H PRN for WHEEZING AND SOB, #30 VIAL GIVE WITH ACETYLCYSTEINE SOLUTION 09/29/18 Acetylcysteine* (Mucomyst*) 4 Ml Soln, 2 ML NEB Q6H PRN for COPD, EA GIVE WITH ALBUTEROL 09/29/18 Acetaminophen* (Acetaminophen*) 650 Mg Tablet, 650 MG GTB Q4H PRN for PAIN LEVEL 1-510, #30 TAB 09/29/18 Tramadol HCl (Tramadol HCl) 50 Mg Tablet, 50 MG G-TUBE Q6H PRN for PAIN LEVEL 6- 10, #120 TAB 06/11/18 Sirolimus* (Rapamune*) 1 Mg Tablet, 1 MG G-TUBE QHS, TAB 06/11/18 Levothyroxine Sodium* (Levoxyl*) 50 Mcg Tablet, 50 MCG GTB BEFORE BREAKFAST, #30 TAB 06/11/18 Tamsulosin Hcl* (Tamsulosin Hcl*) 0.4 Mg Cap.er.24h, 0.4 MG G-TUBE QPM, CAP 06/11/18 Apixaban* (Eliquis*) 2.5 Mg Tablet, 2.5 MG GTB BID, TAB 06/11/18 Discontinued Reported Medications Tiotropium [place]* (Spiriva*) 18 Mcg Cap.w.dev, 1 CAP INHALATION DAILY, #30 CAP 06/11/18 Sotalol Hcl* (Betapace*) 80 Mg Tab, 40 MG G-TUBE BID, TAB 06/11/18 Latanoprost (Latanoprost) 2.5 Ml Drops, 1 DROP BOTH EYES QHS, #1 BOTTLE 06/11/18 Guaifenesin* (Refenesen*) 400 Mg Tablet, 400 MG G-TUBE Q8H PRN for COUGH, TAB 06/11/18 Polyvinyl Alcohol (Tears Again) 15 Ml Drops, 15 ML OP PRN PRN for DRY EYES, BOTTLE 06/11/18 Amlodipine Besylate* (Amlodipine Besylate*) 10 Mg Tablet, 10 MG G-TUBE DAILY, #30 TAB 06/11/18 Acetaminophen* (Acetaminophen* Susp) 325 Mg/10.15 Ml Solution, 640 MG G-TUBE Q4H PRN for PAIN OR TEMP ABOVE 38C, ML 06/11/18 Medications Current Medications IV Flush (NS 3 ml) 3 ml PER PROTOCOL IV ; Start 09/29/18 at 15:30 Lorazepam (Ativan) 2 mg Q10MIN PRN IV seizure; Start 09/29/18 at 15:30 Ondansetron HCl (Zofran Inj) 4 mg Q6H PRN IV NAUSEA/VOMITING; Start 09/29/18 at 15:30 Acetaminophen (Tylenol Tab) 650 mg Q6H PRN PO .PAIN 1-3 OR TEMP; Start 09/29/18 at 15:30 Acetaminophen/ Hydrocodone Bitart ([place] (5/325)) 1 tab Q6H PRN PO .PAIN 4-6; Start 09/29/18 at 15:30 Morphine Sulfate (morphine) 2 mg Q4H PRN IV .PAIN 7-10; Start 09/29/18 at 15:30 Levetiracetam (Keppra) 500 mg BID PEG Last administered on 10/05/18 08:27; Admin Dose 500 MG; Start 09/29/18 at 21:00 Apixaban (Eliquis) 2.5 mg BID GTB Last administered on 10/05/18 08:27; Admin Dose 2.5 MG; Start 09/29/18 at 21:00 Carvedilol (Coreg) 6.25 mg BID GTB Last administered on 10/05/18 08:28; Admin Dose 6.25 MG; Start 09/29/18 at 21:00 Famotidine (Pepcid) 20 mg BID GTB Last administered on 10/05/18 08:27; Admin Dose 20 MG; Start 09/29/18 at 21:00 Furosemide (Lasix) 20 mg DAILY GTB Last administered on 10/05/18 08:28; Admin Dose 20 MG; Start 09/30/18 at 09:00 Latanoprost (Xalatan) 1 drop QHS BOTH EYES Last administered on 10/04/18 20:55; Admin Dose 1 DROP; Start 09/29/18 at 21:00 Levothyroxine Sodium (Synthroid) 50 mcg BEFORE BREAKFAST GTB Last administered on 10/05/18 05:31; Admin Dose 50 MCG; Start 09/30/18 at 07:00 Eye Lubricant (Artificial Tears Oph) 1 drop Q6H BOTH EYES Last administered on 10/05/18 08:28; Admin Dose 1 DROP; Start 09/29/18 at 16:00 Sirolimus (Rapamune) 1 mg QHS PEG Last administered on 10/04/18 20:41; Admin Dose 1 MG; Start 09/29/18 at 21:00 Tamsulosin HCl (Flomax) 0.4 mg QPM PO Last administered on 10/04/18 20:40; Admin Dose 0.4 MG; Start 09/29/18 at 21:00 Albuterol/ Ipratropium (Duoneb) 3 ml Q6HWA RESP THERAPY HHN Last administered on 10/05/18 07:58; Admin Dose 3 ML; Start 09/29/18 at 20:00 Albuterol/ Ipratropium (Duoneb) 3 ml Q2H RESP THERAPY PRN HHN shortness of breath; Start 09/29/18 at 16:30 Metoprolol Tartrate (Lopressor) 5 mg Q4H PRN IV HR>110 Hold SBP<100; Start 09/29/18 at 16:30 Assessment/Plan Hospital Course (Demo Recall) 1. Atrial fibrillation, currently rate controlled, on Eliquis, but presenting with seizure - rate controlled now, con't med RX. 2. Abnormal electrocardiogram with nonspecific ST and T wave abnormality, suggestive for acute coronary syndrome.-neg trop x 3 - treated. 3. Hypertension, under reasonable control - better now. 4. Hypothyroidism. 5. BPH. 6. Seizure, now on Keppra. 7. Lytic lesions on head CT, question etiology - defer to neurology. 8. Hypothyroidism. 9. Congestive heart failure with preserved EF, on Lasix- con't gentle diuresis. JUSTO VILLASENOR MD Oct 05, 2018 11:17
[2018-10-05 14:50] VITALS: BP 127/75; PULSE 77; RESP 17
--- NOTE | 2018-10-05 17:30 | DS ---
Date/Time of Note Date/Time of Note DATE: 10/05/18 TIME: 17:24 Discharge Summary Admission/Discharge Info Admit Date/Time Sep 29, 2018 at 10:04 Discharge Date/Time Oct 05, 2018 Discharge Diagnosis Brain mass Patient Condition: Good Hx of Present Illness Patient is a [place] male with a past medical history significant for atrial fibrillation, COPD, chronic debility, CVA with residual left-sided deficit, nephrectomy, hypothyroidism, BPH,'s chronic dysphasia, chronic hypoxia who presents to [facility] for new onset seizure. Patient has been in a [facility] facility ever since he has had chronic dysphasia with PEG tube and persistent debility secondary to a stroke last year. Patient is currently back to baseline after seizure. More history is received from patient's sons at bedside. Patient is able to follow command however does have a residual left sided deficit with minimal movement on the left upper and lower extremity however is able to squeeze fingers and move his leg. Patient has been able to walk with assistance and walker as recently as 1 month ago. Patient had a questionable chest pain complaint that subsequently resolved after he got to the ED, currently has no acute complaints at this time. 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 Moreno with neurosurgery was consulted. A plan was made to repeat imaging in 3 months. The patient was started on Keppra twice daily and had no further seizures in the hospital. Mental status was at baseline. Plan to discharge back to SNF. Home Meds Reported Medications [Diltiazem Hcl] No Conflict Check, 2.5 ML GTB Q8H DILTIAZEM HCL SOLUTION 12MG/ML HOLD IF SBP<110 OR MD<60 09/29/18 Ondansetron Hcl* (Zofran*) 4 Mg Tab, 4 MG GTB Q6H PRN for NAUSEA AND OR VOMITING, TAB 09/29/18 Latanoprost (Latanoprost) 2.5 Ml Drops, 1 DROP BOTH EYES QHS, #1 BOTTLE 09/29/18 Famotidine* (Famotidine*) 20 Mg Tablet, 20 MG GTB BID, #60 TAB 09/29/18 Furosemide* (Furosemide*) 20 Mg Tablet, 20 MG GTB DAILY, #60 TAB 09/29/18 Carvedilol* (Coreg*) 6.25 Mg Tablet, 6.25 MG GTB BID, #60 TAB HOLD FOR SBP<110 OR MD<60 09/29/18 Polyvinyl Alcohol* ([place]wa Tears*) 1.4% - 15 Ml Drops, 1 DROP BOTH EYES Q6H, #1 BOTTLE 09/29/18 Albuterol Sulfate* (Albuterol Sulfate* Neb) 0.083%-3 Ml Neb, 1.25 MG NEB Q6H PRN for WHEEZING AND SOB, #30 VIAL GIVE WITH ACETYLCYSTEINE SOLUTION 09/29/18 Acetylcysteine* (Mucomyst*) 4 Ml Soln, 2 ML NEB Q6H PRN for COPD, EA GIVE WITH ALBUTEROL 09/29/18 Acetaminophen* (Acetaminophen*) 650 Mg Tablet, 650 MG GTB Q4H PRN for PAIN LEVEL 1-5, #30 TAB 09/29/18 Tramadol HCl (Tramadol HCl) 50 Mg Tablet, 50 MG G-TUBE Q6H PRN for PAIN LEVEL 6- 1010, #120 TAB 06/11/18 Sirolimus* (Rapamune*) 1 Mg Tablet, 1 MG G-TUBE QHS, TAB 06/11/18 Levothyroxine Sodium* (Levoxyl*) 50 Mcg Tablet, 50 MCG GTB BEFORE BREAKFAST, #30 TAB 06/11/18 Tamsulosin Hcl* (Tamsulosin Hcl*) 0.4 Mg Cap.er.24h, 0.4 MG G-TUBE QPM, CAP 06/11/18 Apixaban* (Eliquis*) 2.5 Mg Tablet, 2.5 MG GTB BID, TAB 06/11/18 Discontinued Reported Medications Tiotropium [place]* (Spiriva*) 18 Mcg Cap.w.dev, 1 CAP INHALATION DAILY, #30 CAP 06/11/18 Sotalol Hcl* (Betapace*) 80 Mg Tab, 40 MG G-TUBE BID, TAB 06/11/18 Latanoprost (Latanoprost) 2.5 Ml Drops, 1 DROP BOTH EYES QHS, #1 BOTTLE 06/11/18 Guaifenesin* (Refenesen*) 400 Mg Tablet, 400 MG G-TUBE Q8H PRN for COUGH, TAB 06/11/18 Polyvinyl Alcohol (Tears Again) 15 Ml Drops, 15 ML OP PRN PRN for DRY EYES, BOTTLE 06/11/18 Amlodipine Besylate* (Amlodipine Besylate*) 10 Mg Tablet, 10 MG G-TUBE DAILY, #30 TAB 06/11/18 Acetaminophen* (Acetaminophen* Susp) 325 Mg/10.15 Ml Solution, 640 MG G-TUBE Q4H PRN for PAIN OR TEMP ABOVE 38C, ML 06/11/18 Primary Care Provider Rylan Dyson MD Time spent on discharge: > 30 minutes RORY MORSE MD Oct 05, 2018 17:30
== END 2018-10-05 17:26 | DRG 101 ==
LOC: E/R 06:54 → TEL 10:04
PROVIDERS: ADMIT Internal Medicine; ATTEND Internal Medicine
DX: R56.9 Unspecified convulsions (principal); I69.354 Hemiplegia and hemiparesis following cerebral infarction affecting left non-dominant side; I50.30 Unspecified diastolic (congestive) heart failure; I48.91 Unspecified atrial fibrillation; I11.0 Hypertensive heart disease with heart failure; E03.9 Hypothyroidism, unspecified; G93.9 Disorder of brain, unspecified; J44.9 Chronic obstructive pulmonary disease, unspecified; N40.0 Benign prostatic hyperplasia without lower urinary tract symptoms; R53.81 Other malaise; R07.9 Chest pain, unspecified; R94.31 Abnormal electrocardiogram [ECG] [EKG]; R09.02 Hypoxemia; Z99.81 Dependence on supplemental oxygen; I69.321 Dysphasia following cerebral infarction; Z90.5 Acquired absence of kidney; Z93.1 Gastrostomy status; Z79.01 Long term (current) use of anticoagulants
CPT/HCPCS: 70450; 70552; 71045; 80048; 80053; 80061; 81001; 83036; 83735; 84100; 84155; 84165; 84439; 84443; 84484; 85025; 86320; 93005; 94640; 94664; 96374; J1953